=== PATIENT | female | born 1995 | race Caucasian/White ===

== ENCOUNTER 2024-07-11 20:29 | Emergency (ER) | payer MEDICAID, SELFPAY ==
[2024-07-11 20:42] VITALS: BP 136/87; PULSE 79; TEMP 37.2; O2SAT 100; BMI 21.6
--- NOTE | 2024-07-11 20:47 | US_ITS ---
The [address] [address] Patient Name: FLORENCE ANDERSON MRN: [id number] date: 1995 Sex: F Assigned Patient Location: ER Current Patient Location: Accession/Order Number: [id number] Exam Date: 07/11/2024 20:55 Report Date: 07/12/2024 00:46 At the request of: GILMA MARCUS Procedure: US pelvis transvaginal EXAM: US pelvis transvaginal HISTORY: iud placement COMPARISON: None. TECHNIQUE: Real time pelvic ultrasound examination was performed using Duplex Doppler by a transvaginal approach. FINDINGS: The uterus is normal in size and echogenicity measuring 9.4 cm in length. No focal myometrial lesions are seen. The endometrium is within normal limits with the stripe measuring up to 0.6 cm in thickness. An IUD is in place. The right ovary measures 4.4 x 2.7 x 3.7 cm, and the left ovary measures 2.9 x 2.1 x 2.7 cm. Blood flow is seen in both ovaries. There is a 1.7 x 0.9 x 1.4 cm right ovarian cyst. There is no significant free fluid. US/US pelvis transvaginal IMPRESSION: 1. An IUD appears to be appropriately positioned. Electronically authenticated by: Rubi SALCEDO Date: 07/12/2024 00:46
[2024-07-11 21:06] LABS: Bilirubin Urine NEGATIVE (NEGATIVE); Blood Urine NEGATIVE (NEGATIVE); Color Urine LT. YELLOW (YELLOW); Glucose Urine UA NEGATIVE (NEGATIVE); Ketones Urine NEGATIVE (NEGATIVE); Leukocyte Esterase Urine NEGATIVE (NEGATIVE); Nitrite Urine POSITIVE (NEGATIVE); Protein Urine NEGATIVE (NEG/TRACE); Specific Gravity Urine 1.025 (1.005-1.025); pH Urine 6.5 (5.0-9.0)
[2024-07-11 21:09] LABS: Clarity Urine CLOUDY (CLEAR); Urine Microscopic Indicated YES
[2024-07-11 21:19] LABS: Amorphous Sediment Urine MANY; Bacteria Urine LARGE #/HPF (NONE SEEN); Cast Seen? NONE SEEN #/LPF (NONE SEEN); Crystals Seen? None Seen #/HPF (None Seen); Mucus Urine NONE SEEN (NONE SEEN); RBC Urine 0-2 #/HPF (0-2); Squamous Epithelial Cell Urine MODERATE #/LPF (NONE/RARE); Urine Culture Indicated YES
--- NOTE | 2024-07-11 21:33 | ED.ABDPAIN1 ---
HPI - Abdominal Pain General Chief Complaint: Abdominal Pain Stated Complaint: ABDOMINAL PAIN, POSS IUD OUT OF PLACE Time Seen by Provider: 07/11/24 20:45 Source: patient Mode of arrival: walk-in Limitations: no limitations History of Present Illness HPI narrative: 9-year-old female presents here with chief complaint of pelvic pain. She states she was doing box jumps while working out and felt a pain to her lower pelvic region. She has an IUD in place and states it has been there for 6 years. She denies any other symptoms states she had some abdominal cramping occurred as well. Denies any vaginal bleeding. Related Data Home Medications ?Medication ?Instructions ?Recorded ?Confirmed No Known Home Medications 07/11/24 07/11/24 Previous Rx's ?Medication ?Instructions ?Recorded cephalexin 500 mg capsule 500 mg PO TID 7 days #21 caps 07/11/24 Allergies Allergy/AdvReac Type Severity Reaction Status Date / Time No Known Drug Allergies Allergy Verified 07/11/24 20:46 Review of Systems ROS Narrative All Systems are negative except as noted/marked.All systems reviewed and otherwise negative PFSH PFSH Social History Little interest or pleasure in doing things: not at all Feeling down, depressed, or hopeless: not at all Exam Narrative Exam Narrative: All Systems are negative except as noted/marked.All systems reviewed and otherwise negative Nurses note and vital signs reviewed and patient is not hypoxic. General: The patient appears well and in no apparent distress. Patient is resting comfortably on cart. Skin: Warm, dry, no pallor noted. There is no rash noted. Head: Normocephalic, atraumatic Eye: Normal conjunctiva, no drainage, EOMI. PERRL Ears, Nose, Mouth, and Throat: oral mucosa is moist. Nares patent. Mouth without vesicles. Ear canals patent. Tm's without Erythema Cardiovascular: Regular Rate and Rhythm Respiratory: Patient is in no distress, no accessory muscle use, lungs are clear to auscultation, no wheezing, rales or rhonchi Back: non-tender, no CVA tenderness bilaterally to percussion. GI: Normal bowel sounds, no tenderness to palpation, no masses appreciated. No rebound, guarding, or rigidity noted. IUD strings are noticed, no other abnormalities no vaginal discharge or bleeding Musculoskeletal: The patient has no evidence of calf tenderness, no pitting edema, symmetrical pulses noted bilaterally Neurological: A&O x4, normal speech Psychiatric: Cooperative Constitutional Vital Signs, click to edit/add: Last Vital Signs Temp 98.9 F 07/11/24 20:42 Pulse 79 07/11/24 20:42 Resp 20 07/11/24 20:42 BP 136/87 07/11/24 20:42 Pulse Ox 100 07/11/24 20:42 O2 Del Method Room Air 07/11/24 20:42 Course Vital Signs Vital signs: Vital Signs Temperature 98.9 F 07/11/24 20:42 Pulse Rate 79 07/11/24 20:42 Respiratory Rate 20 07/11/24 20:42 Blood Pressure 136/87 07/11/24 20:42 Pulse Oximetry 100 07/11/24 20:42 Oxygen Delivery Method Room Air 07/11/24 20:42 Temperature 98.9 F 07/11/24 20:42 Pulse Rate 79 07/11/24 20:42 Respiratory Rate 20 07/11/24 20:42 Blood Pressure 136/87 07/11/24 20:42 Pulse Oximetry 100 07/11/24 20:42 Oxygen Delivery Method Room Air 07/11/24 20:42 MDM - Abdominal Pain MDM Narrative Medical decision making narrative: Here chief complaint of pelvic pain after doing box jumps. Pelvic ultrasound was performed and IUD does appear to be in place. Strings were also checked through physical exam by myself strings were in place and noted. Patient's urinalysis was reviewed positive for nitrates will be placed on Keflex for a UTI. She is instructed to follow-up with Dr. Mohamud for her yearly Pap and further evaluation of UTI if necessary. Patient agrees with plan of care Medical Records Attestation: I reviewed the patient's medical records. Lab Data Attestation: I reviewed the patient's lab results. Labs: Lab Results 07/11/24 Range/Units 20:48 Urine Color Lt. yellow (YELLOW) Urine Clarity Cloudy A (CLEAR) Urine pH 6.5 (5.0-9.0) Ur Specific [place] 1.025 (1.005-1.025) Urine Protein Negative (NEG/TRACE) mg/dL Urine Glucose (UA) Negative (NEGATIVE) mg/dL Urine Ketones Negative (NEGATIVE) mg/dL Urine Occult Blood Negative (NEGATIVE) Urine Nitrite Positive A (NEGATIVE) Urine Bilirubin Negative (NEGATIVE) Urine Urobilinogen 1.0 (0.2-1.0) EU/dL Ur Leukocyte Esterase Negative (NEGATIVE) Urine RBC 0-2 (0-2) #/HPF Urine WBC 5-10 A (NONE SEEN) #/HPF Ur Squamous Epith Cells Moderate A (NONE/RARE) #/LPF Urine Crystals None seen (None Seen) #/HPF Amorphous Sediment Many Urine Bacteria Large A (NONE SEEN) #/HPF Urine Casts None seen (NONE SEEN) #/LPF Urine Mucus None seen (NONE SEEN) Ur Culture Indicated? Yes Imaging Data us pelvic: Radiologist's impression: ITS Impressions Transvaginal US 07/11/24 20:47 IMPRESSION: 1. An IUD appears to be appropriately positioned. Electronically authenticated by: Rubi SALCEDO Date: 07/12/2024 00:46 Discharge Plan Discharge Chief Complaint: Abdominal Pain Clinical Impression: UTI (urinary tract infection), IUD check up Patient Disposition: Home, Self-Care Time of Disposition Decision: 21:30 Condition: Good Prescriptions / Home Meds: New cephalexin 500 mg capsule 500 mg PO TID 7 Days Qty: 21 0RF No Action No Known Home Medications Print Language: Frisian Instructions: Intrauterine Device (DC), Urinary Tract Infection in Women (ED) Referrals: Harjeet Mohamud DO [Physician] - 1 week Physician,Non-Staff, MD [Primary Care Provider] - 1 week Discharge Date/Time: 07/11/24 21:55
[2024-07-11] MEDS: CEPHALEXIN 500 MG CAPSULE PO (21:49)
== END 2024-07-11 21:55 | disposition home or self-care (01) ==
PROVIDERS: Emergency Provider Internal Medicine
DX: N39.0 Urinary tract infection, site not specified (principal); Z30.431 Encounter for routine checking of intrauterine contraceptive device
CPT/HCPCS: 76830; 81001; 87086; 87150; 87186; 99284

== ENCOUNTER 2025-01-05 19:01 | Emergency (ER) | payer MEDICAID, SELFPAY ==
[2025-01-05 19:12] VITALS: BP 119/71; PULSE 85; TEMP 36.8; O2SAT 99; BMI 27.1
--- NOTE | 2025-01-05 19:55 | ED.URI1 ---
HPI - URI/Sore Throat General Chief Complaint: Upper Respiratory Infection Stated Complaint: Upper Respiratory Infection Time Seen by Provider: 01/05/25 19:55 Source: patient Limitations: no limitations History of Present Illness HPI Narrative: 29 year old female presents to the ED for cough, congestion. Onset was a few days ago. Her children and significant other have also been ill. Denies fever, chills, SOB, sore throat, N/V/D. States she is 7 weeks . Related Data Home Medications ?Medication ?Instructions ?Recorded ?Confirmed No Known Home Medications 07/11/24 07/11/24 Previous Rx's ?Medication ?Instructions ?Recorded cephalexin 500 mg capsule 500 mg PO TID 7 days #21 caps 07/11/24 Allergies Allergy/AdvReac Type Severity Reaction Status Date / Time No Known Drug Allergies Allergy Verified 01/05/25 19:11 Review of Systems ROS Constitutional Denies: fever or chills Ears, nose, mouth, and throat Reports: nasal discharge and nasal congestion; Denies: throat pain, neck pain, ear pain or ear discharge Respiratory Reports: cough; Denies: shortness of breath Gastrointestinal Denies: abdominal pain, vomiting or diarrhea Musculoskeletal Denies: back pain or neck pain Neurological Denies: headache PFSH PFSH Social History Little interest or pleasure in doing things: not at all Feeling down, depressed, or hopeless: not at all Exam Constitutional Vital Signs, click to edit/add: Last Vital Signs Temp 98.2 F 01/05/25 19:12 Pulse 85 01/05/25 19:12 Resp 16 01/05/25 19:12 BP 119/71 01/05/25 19:12 Pulse Ox 99 01/05/25 19:12 O2 Del Method Room Air 01/05/25 19:12 Common normals: no apparent distress and oriented x3 General appearance: cooperative HENMT Common normals: moist oral mucous membranes Eye Common normals: conjunctivae normal and no scleral icterus Neck & C-Spine Common normals: supple Chest Chest: symmetrical chest wall rise Respiratory Common normals: normal respiratory effort and clear to auscultation bilaterally Effort & inspection: able to speak in complete sentences and symmetric chest movement Cardio Common normals: regular rate and regular rhythm Neuro Common normals: oriented x3 and moves all extremities Sensorium/orientation: awake and alert Speech: speech normal Course Vital Signs Vital signs: Vital Signs Temperature 98.2 F 01/05/25 19:12 Pulse Rate 85 01/05/25 19:12 Respiratory Rate 16 01/05/25 19:12 Blood Pressure 119/71 01/05/25 19:12 Pulse Oximetry 99 01/05/25 19:12 Oxygen Delivery Method Room Air 01/05/25 19:12 Temperature 98.2 F 01/05/25 19:12 Pulse Rate 85 01/05/25 19:12 Respiratory Rate 16 01/05/25 19:12 Blood Pressure 119/71 01/05/25 19:12 Pulse Oximetry 99 01/05/25 19:12 Oxygen Delivery Method Room Air 01/05/25 19:12 MDM - URI/Sore Throat MDM Narrative Medical decision making narrative: Pt declined testing for influenza and Covid-19 today. Her two children and significant other were also evaluated and were tested. Pt appeared in no acute distress. Follow up with pcp for a recheck, further evaluation and treatment. Medical Records Attestation: I reviewed the patient's medical records. Discharge Plan Discharge Chief Complaint: Upper Respiratory Infection Clinical Impression: Upper respiratory infection, viral Patient Disposition: Home, Self-Care Time of Disposition Decision: 19:57 Condition: Good Mode of Transportation: Private Vehicle Prescriptions / Home Meds: No Action No Known Home Medications cephalexin 500 mg capsule 500 mg PO TID 7 Days Qty: 21 0RF Print Language: Moroccan Additional Instructions: Return to the ER for worsening symptoms. Referrals: Jef Ramirez DO [Primary Care Provider] - 1 week Discharge Date/Time: 01/05/25 20:05
== END 2025-01-05 20:05 | disposition home or self-care (01) ==
PROVIDERS: Emergency Provider Internal Medicine; PCP Family Medicine
DX: O99.511 Diseases of the respiratory system complicating pregnancy, first trimester (principal); J06.9 Acute upper respiratory infection, unspecified; Z3A.01 Less than 8 weeks gestation of pregnancy
CPT/HCPCS: 99282

== ENCOUNTER 2025-01-09 11:59 | Outpatient (OUT) | payer MEDICAID, SELFPAY ==
[2025-01-09 12:28] LABS: Basophils Percent Auto 0.3 % (0.2-2.0); Eosinophils Absolute Auto 0.1 10^3/uL (0.0-0.7); Eosinophils Percent Auto 1.4 % (0.9-7.0); Hematocrit 34.5 % (36.0-48.0); Hemoglobin 11.8 g/dL (12.0-16.0); Immature Granulocytes Abs Auto 0.04 10^3/uL (0.00-0.03); Immature Granulocytes Pct Auto 0.6 % (0.0-0.5); Lymphocytes Absolute Auto 1.8 10^3/uL (1.2-3.8); Lymphocytes Percent Auto 28.3 % (20.5-60.0); Mean Corpuscular HGB Conc 34.2 g/dL (29.9-35.2); Mean Corpuscular Hemoglobin 31.1 pg (26.7-34.0); Mean Platelet Volume 9.3 fL (9.5-13.5); Monocytes Absolute Auto 0.4 10^3/uL (0.3-0.8); Neutrophils Percent Auto 63.4 % (43.0-75.0); Platelet Count 224 10^3/uL (150-450); Red Blood Count 3.79 10^6/uL (4.20-5.40); Red Cell Distribution Width 13.2 % (11.0-15.0); White Blood Count 6.3 10^3/uL (4.0-11.0)
[2025-01-09 12:42] LABS: BOX Test Reference Lab UNITY; BOX Test Sent Out UNITY BOX
[2025-01-09 13:41] LABS: Estimated Average Glucose 97 mg/dL
[2025-01-09 13:46] LABS: Cannabinoid Screen Urine POSITIVE (NEGATIVE)
[2025-01-09 13:47] LABS: Amphetamine Screen Urine NEGATIVE (NEGATIVE); Barbiturates Screen Urine NEGATIVE (NEGATIVE); Benzodiazepines Screen Urine NEGATIVE (NEGATIVE); Buprenorphine Screen Urine NEGATIVE (NEGATIVE); Cocaine Screen Urine NEGATIVE (NEGATIVE); Methadone Screen Urine NEGATIVE (NEGATIVE); Methamphetamines Screen Urine NEGATIVE (NEGATIVE); Opiate Screen Urine NEGATIVE (NEGATIVE); Oxycodone Screen Urine NEGATIVE (NEGATIVE); Phencyclidine Screen Urine NEGATIVE (NEGATIVE); Tricyclic Antidepressant Urine NEGATIVE (NEGATIVE)
[2025-01-10 05:07] LABS: HIV Ab/p24 Ag Screen Non Reactive (Non Reactive)
[2025-01-10 06:08] LABS: HBsAg Screen Negative (Negative); HCV Ab Non Reactive (Non Reactive)
[2025-01-10 07:07] LABS: Rubella Antibodies, IgG 2.85 index (Immune >0.99)
[2025-01-10 13:12] LABS: Rapid Plasma Reagin, Quant Non Reactive titer (NonRea<1:1)
== END 2025-01-09 12:00 | disposition home or self-care (01) ==
LOC: LAB 12:00
PROVIDERS: PCP Family Medicine; Visit Provider Obstetrics & Gynecology
DX: Z34.01 Encounter for supervision of normal first pregnancy, first trimester (principal); Z36.0 Encounter for antenatal screening for chromosomal anomalies; N92.6 Irregular menstruation, unspecified
CPT/HCPCS: 36415; 80307; 83036; 85025; 86592; 86762; 86803; 86850; 86900; 86901; 87086; 87340; 87389

== ENCOUNTER 2025-02-18 12:28 | Outpatient (REF) | payer MEDICAID, SELFPAY ==
[2025-02-20 12:08] LABS: Age Gdln ACOG Testing Note (.); IGP, rfx Aptima HPV ASCU Note (.)
== END 2025-02-18 12:29 | disposition home or self-care (01) ==
LOC: LAB 12:28
PROVIDERS: PCP Family Medicine; Visit Provider Physician Assistant
DX: Z01.419 Encounter for gynecological examination (general) (routine) without abnormal findings (principal)
CPT/HCPCS: 88175

== ENCOUNTER 2025-04-27 13:06 | Outpatient (OUT) | payer MEDICAID, SELFPAY ==
--- OUTSIDE RECORDS SUMMARY | 2019-03-13 05:00 | XMS_ITS | Continuity of Care Document ---
Author Organization [facility] Address [address] [place] [address] Phone Care Team Providers Care Boat Tender Name Role Phone Ralph Santillan DDS Unavailable [...] Diagnoses Date Provider Providers Copied on Encounter [facility], [address] [place] [address], [id number], [place] tel:[phone] Dental Clinic Extractions (chief complaint) Encounter for screening for dental disorders 9 Tyrell Rosas. [address] [place], [place], [id number], [place]. tel:[phone] [facility], [address] [place] [address], [id number], [place] tel:[phone] Dental Clinic Encounter for screening for dental disorders 9 Lisa Oviedo. [address] [place], [place], [id number], [place]. tel:[phone] [facility], [address] [place] [address], [id number], [place] tel:[phone] [facility] No Information 9-201 8 Kristofer Steven. [address] [place], [place], [id number], [place]. tel:[phone] OFFICE/OUTPAT IENT VISIT, [facility], [address] [place], [place], [id number], [place] tel:[phone] [facility] Routine PN Visit (chief complaint) No Information 1- 4 Ken [facility] Mitali. [address] [place], [place], [id number], [place]. tel:[phone] OFFICE/OUTPAT IENT VISIT, [facility], [address] [place], [place], [id number], [place] tel:[phone] [facility] Routine PN Visit (chief complaint) No Information 7- 4 [facility] Mitali. [address] [place], [place], [id number], [place]. tel:[phone] OFFICE/OUTPAT IENT VISIT, [facility], [address] [place], [place], [id number], [place] tel:[phone] [facility] Routine PN Visit (chief complaint) No Information 3- 4 [facility] Mitali. [address] [place], [place], [id number], [place]. tel:[phone] OFFICE/OUTPAT IENT VISIT, [facility], [address] [place], [place], [id number], [place] tel:[phone] [facility] Interview (chief complaint) Influenza Vaccine 8- 4 [facility] Mitali. [address] [place], [place], [id number], [place]. tel:[phone] OFFICE/OUTPAT IENT VISIT, [facility], [address] [place], [place], [id number], [place] tel:[phone] [facility] Supervision of other normal 2-201 4 [facility] Mitali. [address] [place], [place], [id number], [place]. tel:[phone] [facility], [address] [place], [place], [id number], tel:[phone] [facility] No Information 2 Tara Cunningham. [address] [place], [place], [id number], . tel:[phone] Family History Family Member Type Diagnosis Age At Onset Father Problem (finding) schizophrenia Mother Problem (finding) Alive and well Brother Problem (finding) asthma Father Problem (finding) depression Immunizations Vaccine Date Status Comments Influenza virus vaccine, quadrivalent, split virus, preservative free administered Source: New Immuniza tion Record Flu (split) (3 yrs or older) administered Source: New Immunization Record Payers Payer name Insurance type Covered republican ID Authoriza tion(s) D Medicaid Wrap - [facility] [place] [id number] [employer] [place] [id number] Medicaid Wrap - [facility] [place] [id number] Social History Type Description Quantity Date Captured [...] Action Status Goal Influenza Vaccine. Due on Oc due Goal Depression screening. Due on due Goal PAP. Due on due Goal RLP. Due on due Goal Tdap. Due on due Goal Influenza Vaccine. Due [...]
--- OUTSIDE RECORDS SUMMARY | 2025-04-22 15:50 | XMS_ITS | Encounter Summary ---
Author Organization [facility] Address [address] [place] [address] Care Team Providers Care [facility] Name Role Phone Jef Ramirez DO Primary Care Provider [phone] Reason for Visit * Reason Comments Routine Visit Encounter Details Date Type Department Care Team (Late st Contact Info) Description 04/22/2025 3:50 PM EDT Routine [facility] [address] [id number] Josseline Andersen PA [address] [place], [place] [id number] Second trimester ([facility]); 24 weeks gestation of ([facility]); Diabetes mellitus screening; Restless leg Social History Tobacco Use Types Packs/Day Years Used Date Smoking Tobacco: Never Assessed Estimated Date of Delivery Comme nts Yes 08/10/2025 Based on Ultraso und Sex and Gender Information Value Date Recorded Sex Assigned at Not on file Legal Sex Female 6:46 PM EDT Gender Identity Not on file Sexual Orientation Not on file documented as of this encounter Last Filed Vital Signs Vital Sign Reading Time Taken Comments Blood Pressure 112/68 04/22/2025 4:17 PM EDT Pulse - - Temperature - - Respiratory Rate - - Oxygen Saturation - - Inhaled Oxygen Concentration - - Weight 80.1 kg (176 lb 9.6 oz) 04/22/2025 4:17 P M EDT Height - - Body Mass Index 29.39 02/18/2025 9:53 AM EDT documented in this encounter Progress Notes * JORGE Patrick - 04/22/2025 3:50 PM EDT Reason for Appointment: Patient ID: Tristen Mccracken is a 29 y.o. female who presents for Routine Visit Patient presents today for Return OB appointment. MEDICATIONS Current Outpatient Medications Medication Instructions magnesium oxide (MAG-OX) 400 mg, Oral, Daily MV-Min-Fe Fum-FA-DHA ( 1 PO) 1 tablet, Daily ALLERGIES No Known Allergies PROBLEMS Active Ambulatory Problems Diagnosis Date Noted Irregular bleeding 03/20/2023 Resolved Ambulatory Problems Diagnosis Date Noted No Resolved Ambulatory Problems Past Medical History: Diagnosis Date Irregular menses HISTORY PAST MEDICAL HISTORY SOCIAL HISTORY Past Medical History: Diagnosis Date Irregular menses Social History Tobacco Use Smoking status: Not on file Smokeless tobacco: Not on file Substance Use Topics Alcohol use: Not on file Drug use: Not on file FAMILY HISTORY No family history on file. SURGICAL HISTORY Past Surgical History: Procedure Laterality Date VAGINAL DELIVERY x2 2014&2017 REVIEW OF SYSTEMS Review of Systems: Review of Systems Constitutional: Negative. HENT: Negative. Eyes: Negative. Respiratory: Negative. Cardiovascular: Negative. Gastrointestinal: Negative. Genitourinary: Negative. Musculoskeletal: Negative. Skin: Negative. Neurological: Negative. All other systems reviewed and are negative. Hematological: Negative. Endocrine: Negative. Allergic/Immunologic: Negative. OBJECTIVE Objective: Physical Exam Constitutional: Appearance: Normal appearance. She is normal weight. HENT: Head: Normocephalic. Cardiovascular: Rate and Rhythm: Normal rate. Pulses: Normal pulses. Pulmonary: Effort: Pulmonary effort is normal. Breath sounds: Normal breath sounds. Abdominal: Palpations: Abdomen is soft. Musculoskeletal: General: Normal range of motion. Neurological: General: No focal deficit present. Mental Status: She is alert and oriented to person, place, and time. Psychiatric: Mood and Affect: Mood normal. Behavior: Behavior normal. Thought Content: Thought content normal. Judgment: Judgment normal. Vitals and nursing note reviewed. Vitals: Estimated body mass index is 29.39 kg/m?? as calculated from the following: Height as of 02/18/25: 5' 5 . Weight as of this encounter: 176 lb 9.6 oz. BP: 112/68 Patient's last menstrual period was 10/17/2024. ASSESSMENT & PLAN ICD-10-CM 1. Second trimester ([facility]) Z34.92 POCT urinalysis dipstick manually resulted 2. 24 weeks gestation of ([facility]) Z3A.24 POCT urinalysis dipstick manually resulted 3. Diabetes mellitus screening Z13.1 CBC Glucose tolerance, 1 hour CBC Glucose tolerance, 1 hour 4. Restless leg G25.81 magnesium oxide (Mag-Ox) 400 MG tablet Return OB: Patient presents today for a routine obstetrics appointment. Patient is currently 24w2d . Patient states she is doing well but has complaints of being tired due to current . Patient has verbalizes frequent movement. Orders Placed This Encounter Procedures CBC Glucose tolerance, 1 hour POCT urinalysis dipstick manually resulted Follow Up: Patient is to return to office in 4 week for routine OB appointment. Documented by JORGE Patrick on behalf of: JORGE Patrick documented in this encounter Plan of Treatment Upcoming Encounters Date Type Department Care Team (Late st Contact Info) Description 05/13/2025 3:10 PM EDT Routine [facility] [address] [place] [phone] Harjeet Mohamud DO [address] [place] [address] Scheduled Orders Name Type Priority Associated Diagnoses Orde r Schedule CBC Lab Routine Diabetes mellitus screening Expected: 04/22/2025 (Approximate), Expires: 04/22/2026 Glucose tolerance, 1 hour Lab Routine Diabetes mellitus screening Expected: 04/22/2025 (Approximate), Expires: 04/22/2026 documented as of this encounter Procedures Procedure Name Priority Date/Time Associated Diagnosis Comments POCT URINALYSIS DIPSTICK Routine 04/22/2025 4:25 PM EDT Second trimester ([facility]) 24 weeks gestation of ([facility]) documented in this encounter Results * (ABNORMAL) POCT urinalysis dipstick manually resulted (04/22/2025 4:25 PM EDT) Color, UA Yellow Clarity, UA Clear Glucose, UA Negative Negative - 2000(110) ++++ mg/dL Bilirubin, UA Negative Negative - 4(70) +++ mg/dL Ketones, UA Negative Negative - 160(16) ++++ mg/dL Spec Grav, UA 1.025 1 - 1.03 Blood, UA Negative Negative - 50 Hesham/mcL pH, UA 65.0 5 - 9 Protein, UA Negative Negative - 2000(20) ++++ mg/dL Urobilinogen, UA 1.0 0.2 - 12 mg/dL Leukocytes, UA Negative Negative - 500+++ Dary/mcL Nitrite, UA Negative Negative - Positive Urine 04/22/2025 4:25 PM EDT Josseline PATEL POINT OF CARE TEST ENTER/EDIT OR DERABLES Final Result documented in this encounter Visit Diagnoses Diagnosis Second trimester ([facility]) state, incidental 24 weeks gestation of ([facility]) Diabetes mellitus screening Screening for diabetes mellitus Restless leg Restless legs syndrome (RLS) documented in this encounter Care Teams [facility] Manager Relationship Specialty Start Date End Date Jef Ramirez DO [address] [place] [phone] PCP - General 09/11/24 documented as of this encounter
--- OUTSIDE RECORDS SUMMARY | 2025-04-27 13:10 | XMS_ITS | Clinical Summary ---
Author Organization [facility] Healthcare Address [address] [place] [address] Care Team Providers Care Grain Thresher Name Role Phone Jef Ramirez Primary Care Provider [phone] Allergies No known active allergies Medications MV-Min-Fe Fum-FA-DHA ( 1 PO) Take 1 tablet by mouth Daily Active magnesium oxide (Mag-Ox) 400 MG tabletIndication s:Restless leg Take 1 tablet (400 mg) by mouth Daily 30 tablet 11 04/22/2025 Active Active Problems Problem Noted Date Diagnosed Date Irregular bleeding 03/20/2023 Estimated Date of Delivery Comme nts Yes 08/10/2025 Based on Ultraso und Encounters Date Type Department Care Team Description 04/22/2025 3:50 PM EDT Routine [place] [address] Josseline Andersen PA Second trimester ([facility]); 24 weeks gestation of ([facility]); Diabetes mellitus screening; Restless leg 04/22/2025 Bamboo flowsheet [facility] [place] [address] Josseline Andersen PA 03/23/2025 9:40 [place] [address] Harjeet Mohamud DO 20 weeks gestation of ([facility]); Second trimester ([facility]) 03/23/2025 8:30 AM EDT Ancillary Procedure AP[place] [address] Screening, , for anatomic survey ([facility]) 02/26/2025 Orders Only [facility] CUEVAN Fadia [facility] [place] [phone] Hanny Mercado, PROCESS DEVELOPER 02/20/2025 Telephone [facility] [place] [address] Isabel Adair, PROCESS DEVELOPER 02/18/2025 9:30 AM EDT Routine [facility] S[facility]ail CHANDLERGYN [place] [address] Josseline Andersen PA Well woman exam with routine gynecological exam; Exposure to STD; Need for maternal serum alpha-protein (MSAFP) screening ([facility]); Second trimester ([facility]); 15 weeks gestation of ([facility]); Screening, , for anatomic survey ([facility]) 02/18/2025 Clinisync Result Encounter NOMS External Department Unsolicited Josseline Andersen PA 02/18/2025 External Result Encounter NOMS External Department Unsolicited Josseline Andersen PA 02/18/2025 Bamboo flowsheet [facility] [place] [address] Josseline Andersen PA 01/28/2025 11:20 AM EDT Routine [facility] S[facility]ail CHANDLERGYN Fadia [facility] [place] [address] Harjeet Mohamud DO First trimester ([facility]); 12 weeks gestation of ([facility]) 01/28/2025 Bamboo flowsheet [facility] OBGYN [address] [place] [phone] Harjeet Mohamud DO from Last 3 Months Social History Tobacco Use Types Packs/Day Years Used Date Smoking Tobacco: Never Assessed Estimated Date of Delivery Comme nts Yes 08/10/2025 Based on Ultraso und Sex and Gender Information Value Date Recorded Sex Assigned at Not on file Legal Sex Female 6:46 PM EDT Gender Identity Not on file Sexual Orientation Not on file Last Filed Vital Signs Vital Sign Reading Time Taken Comments Blood Pressure 112/68 04/22/2025 4:17 PM EDT Pulse - - Temperature - - Respiratory Rate - - Oxygen Saturation - - Inhaled Oxygen Concentration - - Weight 80.1 kg (176 lb 9.6 oz) 04/22/2025 4:17 P M EDT Height 165.1 cm (5' 5 ) 02/18/2025 9:53 AM EDT Body Mass Index 29.39 02/18/2025 9:53 AM EDT Plan of Treatment Upcoming Encounters Date Type Department Care Team (Late st Contact Info) Description 05/13/2025 3:10 PM EDT Routine [facility] OBGYN [address] [place] [phone] Harjeet Mohamud DO [address] [place] [address] Procedures Procedure Name Priority Date/Time Associated Diagnosis Comments POCT URINALYSIS DIPSTICK Routine 04/22/2025 4:25 PM EDT Second trimester ([facility]) 24 weeks gestation of ([facility]) POCT URINALYSIS DIPSTICK Routine 03/23/2025 9:50 AM EDT 20 weeks gestation of ([facility]) Second trimester ([facility]) OB 14+ WEEKS ANATOMY SCAN Routine 03/23/2025 9:38 AM EDT Screening, , for anatomic survey ([facility]) RECURRENT VAGINITIS (HTRX) Routine 02/18/2025 12:01 PM EDT POCT URINALYSIS DIPSTICK Routine 02/18/2025 9:53 AM EDT Second trimester ([facility]) IGP,APTIMA HPV,AGE GDLN Routine 02/18/2025 9:36 AM EDT PAP SMEAR Routine 02/18/2025 12:00 AM EDT CULTURE, URINE, ROUTINE Routine 01/28/2025 2:44 PM EDT Missed menses POCT URINALYSIS DIPSTICK Routine 01/28/2025 11:51 AM EDT First trimester ([facility]) from Last 3 Months Results * (ABNORMAL) POCT urinalysis dipstick manually resulted (04/22/2025 4:25 PM EDT) Only the most recent of4 resultswithin the time period is included. Color, UA Yellow Clarity, UA Clear Glucose, [...] - Positive Urine 04/22/2025 4:25 PM EDT us Josseline PATEL POINT OF CARE TEST ENTER/EDIT OR DERABLES Final Result * US OB 14+ weeks anatomy scan (03/23/2025 9:38 AM EDT) Anatomical Region Laterality Modality Body Ultrasound 03/24/2025 7:27 AM EDT Narrative 03/24/2025 7:27 AM EDT EXAM: US OB 14+ WEEKS ANATOMY SCAN HISTORY: anatomy. COMPARISON: Ob ultrasound 01/09/2025. TECHNIQUE: Two-dimensional transabdominal grayscale ultrasound imaging of the pelvis was performed. FINDINGS: Gestation: Single Presentation: Breech Cardiac Activity: 153 beats per minute Placental Location: Posterior/fundal with no sonographic abnormalities identified. Distance from Placental Tip to Cervix: 10.7 cm Cervical Length: 4.5 cm Amniotic Fluid: Appears adequate MEASUREMENTS: BPD: 5.6 cm EGA: 19 weeks 5 days HC: 17.8 cm EGA: 20 weeks 2 days AC: 16.1 cm EGA: 21 weeks 1 days FL: 3.5 cm EGA: 21 weeks 0 days HC/AC Ratio: 1.11 The gestational age by today's ultrasound is 20 weeks 4 days (+/- 10 days gestation). Estimated Weight: 388 grams, +/- 58 grams ( 0 lb 14 oz). Weight Percentile for gestational age: 91 % ANATOMY C-Spine: Unremarkable T-Spine: Unremarkable L-Spine: Unremarkable Sacrum: Unremarkable Four Chamber Heart: Unremarkable LVOT: Unremarkable RVOT: Unremarkable Stomach: Unremarkable Kidneys: Unremarkable Bladder: Unremarkable Diaphragm: Unremarkable Cord insertion: Unremarkable Cord vessels: Three Lateral Ventricles: Unremarkable Cerebellum: Unremarkable Cisterna Magna: Unremarkable Posterior Fossa: Unremarkable Right Femur: Unremarkable Left Femur: Unremarkable Right Tib/Fib: Unremarkable Left Tib/Fib: Unremarkable Right Rad/Ulnar: Unremarkable Left Rad/Ulnar: Unremarkable Right Humerus: Unremarkable Left Humerus: Unremarkable Nose/Lips: Unremarkable Profile: Unremarkable Orbits: Unremarkable IMPRESSION: 1. Single, live intrauterine gestation 20 weeks, 0 days by LMP. Today's ultrasound measurements correlate with a gestational age of 20 weeks 4 days. Estimated weight is 388 grams, +/- 58 grams ( 0 lb 14 oz) which correlates to 91 %. DAY by today's ultrasound is 08/06/2025. 2. growth is measuring large for gestational age. 3. Unremarkable ultrasound of the anatomy. Interpreted by: Electronically signed by OWEN FLOWERS II, MD, PHD at 24-Mar-2025 07:25:03 AM [facility] Procedure Note Owen Flowers MD - 03/24/2025 EXAM: US OB 14+ WEEKS ANATOMY SCAN HISTORY: anatomy. COMPARISON: Ob ultrasound 01/09/2025. TECHNIQUE: Two-dimensional transabdominal grayscale ultrasound imaging ofthe pelvis was performed. FINDINGS: Gestation: Single Presentation: Breech Cardiac Activity: 153 beats per minute Placental Location: Posterior/fundal with no sonographic abnormalitiesidentified. Distance from Placental Tip to Cervix: 10.7 cm Cervical Length: 4.5 cm Amniotic Fluid: Appears adequate MEASUREMENTS: BPD: 5.6 cm EGA: 19 weeks 5 days HC: 17.8 cm EGA: 20 weeks 2 days AC: 16.1 cm EGA: 21 weeks 1 days FL: 3.5 cm EGA: 21 weeks 0 days HC/AC Ratio: 1.11 The gestational age by today's ultrasound is 20 weeks 4 days (+/- 10 daysgestation). Estimated Weight: 388 grams, +/- 58 grams ( 0 lb 14 oz). Weight Percentile for gestational age: 91 % ANATOMY C-Spine: Unremarkable T-Spine: Unremarkable L-Spine: Unremarkable Sacrum: Unremarkable Four Chamber Heart: Unremarkable LVOT: Unremarkable RVOT: Unremarkable Stomach: Unremarkable Kidneys: Unremarkable Bladder: Unremarkable Diaphragm: Unremarkable Cord insertion: Unremarkable Cord vessels: Three Lateral Ventricles: Unremarkable Cerebellum: Unremarkable Cisterna Magna: Unremarkable Posterior Fossa: Unremarkable Right Femur: Unremarkable Left Femur: Unremarkable Right Tib/Fib: Unremarkable Left Tib/Fib: Unremarkable Right Rad/Ulnar: Unremarkable Left Rad/Ulnar: Unremarkable Right Humerus: Unremarkable Left Humerus: Unremarkable Nose/Lips: Unremarkable Profile: Unremarkable Orbits: Unremarkable IMPRESSION: 1. Single, live intrauterine gestation 20 weeks, 0 days by LMP. Today'sultrasound measurements correlate with a gestational age of 20 weeks 4days. Estimated weight is 388 grams, +/- 58 grams ( 0 lb 14 oz)which correlates to 91 %. DAY by today's ultrasound is 08/06/2025. 2. growth is measuring large for gestational age. 3. Unremarkable ultrasound of the anatomy. Interpreted by: Electronically signed by OWEN FLOWERS II, MD, PHD [id number] 07:25:03 AM [facility] us Josseline PATEL IMG OB US PROCEDURES Final Resul t * (ABNORMAL) RECURRENT VAGINITIS (HTRX) (02/18/2025 12:01 PM EDT) ATOPOBIUM VAGINAE 16.666(A) 19.961 - 24.689 ppm 02/20/2025 6:41 AM EDT [facility] ATOPOBIUM VAGINAE Detected(A) 19.961 - 24.689 ppm 02/20/2025 6:41 AM EDT [facility] BVAB 2,3 (BACTERIAL VAGINOSIS ASSOCIATED BACTERIA 2, 3); MOBILUNCUS SPP 0 19.961 - 24.689 ppm 02/20/2025 6:41 AM EDT [facility] BVAB 2,3 (BACTERIAL VAGINOSIS ASSOCIATED BACTERIA 2, 3); MOBILUNCUS SPP Not Detected 19.961 - 24.689 ppm 02/20/2025 6:41 AM EDT [facility] SPENCER ALBICANS, PARAPSILOSIS, TROPICALIS 0 19.961 - 30.770 ppm 02/20/2025 6:41 AM EDT [facility] SPENCER ALBICANS, PARAPSILOSIS, TROPICALIS Not Detected 19.961 - 30.770 ppm 02/20/2025 6:41 AM EDT [facility] SPENCER GLABRATA 0 23.000 - 32.138 ppm 02/20/2025 6:41 AM EDT [facility] SPENCER GLABRATA Not Detected 23.000 - 32.138 ppm 02/20/2025 6:41 AM EDT [facility] SPENCER KRUSEI 0 23.000 - 32.271 ppm 02/20/2025 6:41 AM EDT [facility] SPENCER KRUSEI Not Detected 23.000 - 32.271 ppm 02/20/2025 6:41 AM EDT [facility] CHLAMYDIA TRACHOMATIS 0 23.000 - 31.467 ppm 02/20/2025 6:41 AM EDT [facility] CHLAMYDIA TRACHOMATIS Not Detected 23.000 - 31.467 ppm 02/20/2025 6:41 AM EDT [facility] GARDNERELLA VAGINALIS 0 19.961 - 24.689 ppm 02/20/2025 6:41 AM EDT [facility] GARDNERELLA VAGINALIS Not Detected 19.961 - 24.689 ppm 02/20/2025 6:41 AM EDT [facility] MEGASPHAERA (TYPES 1, 2) 19.997(A) 19.961 - 24.689 ppm 02/20/2025 6:41 AM EDT [facility] MEGASPHAERA (TYPES 1, 2) Detected(A) 19.961 - 24.689 ppm 02/20/2025 6:41 AM EDT [facility] NEISSERIA GONORRHOEAE 0 23.000 - 32.117 ppm 02/20/2025 6:41 AM EDT [facility] NEISSERIA GONORRHOEAE Not Detected 23.000 - 32.117 ppm 02/20/2025 6:41 AM EDT [facility] TRICHOMONAS VAGINALIS 0 23.000 - 32.119 ppm 02/20/2025 6:41 AM EDT [facility] TRICHOMONAS VAGINALIS Not Detected 23.000 - 32.119 ppm 02/20/2025 6:41 AM EDT [facility] MYCOPLASMA GENITALIUM 0 19.961 - 24.689 ppm 02/20/2025 6:41 AM EDT [facility] MYCOPLASMA GENITALIUM Not Detected 19.961 - 24.689 ppm 02/20/2025 6:41 AM EDT [facility] TET B, TET M 16.731(A) 23.000 - 27.778 ppm 02/20/2025 6:41 AM EDT [facility] TET B, TET M Detected(A) 23.000 - 27.778 ppm 02/20/2025 6:41 AM EDT [facility] Tissue 02/18/2025 12:0 1 PM EDT 02/20/2025 1:41 AM EDT us Josseline PATEL LAB BLOOD ORDERABLES Final Resul t [facility] [address] [place] [address] * IGP,APTIMA HPV,AGE GDLN (02/18/2025 9:36 AM EDT) AGE GDLN ACOG TESTING Note . [facility] Comment: TESTS RESULT FLAG UNITS REF RANGE LAB Clinician Provided Cytology Information Source.............Cervix Other.............. No. of containers..01 ThinPrep Vial Age Algo ACOG Antonia... -01 10 FLAG LEGEND: L-Low Normal,H-High Normal,LL-Alert Low,HH-Alert High <-Panic Low,>-Panic High,A-Abnormal,AA-Critical Abnormal Performed at: 01 =G [address] [id number] Belgica Moctezuma MD, IGP, RFX APTIMA HPV ASCU Note . [facility] Comment: TESTS RESULT FLAG UNITS REF RANGE LAB DIAGNOSIS: 02 NEGATIVE FOR INTRAEPITHELIAL LESION OR MALIGNANCY. Specimen adequacy: 02 Satisfactory for evaluation. No endocervical component is identified. An endocervical component is not commonly seen in the patient. Performed by: 02 Leslie Rich, Head Mechanic ([facility]) . 02 Note: Note 02 The Pap smear is a screening test designed to aid in the detection of premalignant and malignant conditions of the uterine cervix. It is not a diagnostic procedure and should not be used as the sole means of detecting cervical cancer. Both false-positive and false-negative reports do occur. Test Methodology: Note 02 This liquid based ThinPrep(R) pap test was screened with the use of an image guided system. . 02 The HPV DNA reflex criteria were not met with this specimen result therefore, no HPV testing was performed. FLAG LEGEND: L-Low Normal,H-High Normal,LL-Alert Low,HH-Alert High <-Panic Low,>-Panic High,A-Abnormal,AA-Critical Abnormal Performed at: [address] [address] Belgica Moctezuma MD, Performed at: =G - [facility] [address] [id number] Large Animal Husbandry Technician: Belgica Moctezuma MD, Phone: [phone] Performed at: [facility] [address] [id number] Large Animal Husbandry Technician: Belgica Moctezuma MD, Phone: [phone] 02/18/2025 9:36 AM EDT 02/18/2025 12:30 PM EDT Narrative [facility] - 02/20/2025 12:08 PM EDT SPATULA-ALONE CERVIX Josseline PATEL LAB BLOOD ORDERABLES Final Resul t [facility] * Pap Smear (02/18/2025 12:00 AM EDT) Swab Cervical swab / Unknown [place] [facility] LAB CYTOLOGY ORDERABLES Final Result EXTERNAL LAB * Urine culture (01/28/2025 2:44 PM EDT) Urine Urine specimen obtained by clean catch procedure / Unknown Harjeet Mohamud DO LAB MICROBIOLOGY - GENERAL ORDER ANDREINA Final Result EXTERNAL LAB from Last 3 Months Insurance [employer] [place] Care Teams Grain Thresher Relationship Specialty Start Date End Date Jef Ramirez DO [address] [place] [address] PCP - General 09/11/24
--- OUTSIDE RECORDS SUMMARY | 2025-04-27 13:10 | XMS_ITS | Encounter Summary ---
Author Organization [facility] Address [address] [place] [address] Care Team Providers Care Cigarette Package Examiner Name Role Phone Jef Ramirez DO Primary Care Provider [phone] Encounter Details Date Type Department Care Team (Late Contact Info) Description 01/19/2025 Abstract APARNA HUNTER [address] [place] [address] [place] [address] Harjeet Mohamud [address] [place], [facility]11 Social History Tobacco Use Types Packs/Day Years Used Date Smoking Tobacco: Never Assessed Estimated Date of Delivery Comme nts Yes 08/10/2025 Based on Ultraso und Sex and Gender Information Value Date Recorded Sex Assigned at Not on file Legal Sex Female 6:46 PM EDT Gender Identity Not on file Sexual Orientation Not on file documented as of this encounter Plan of Treatment Upcoming Encounters Date Type Department Care Team (Late Contact Info) Description 05/13/2025 3:10 PM EDT Routine APARNA HUNTER [address] [place] [address] [place] [address] Harjeet Mohamud [address] [place] [address] [place], [facility]11 documented as of this encounter Visit Diagnoses Not on filedocumented in this encounter Care Teams Cigarette Package Examiner Relationship Specialty Start Date End Date Jef Ramirez DO [address] [place] [address] PCP - General 09/11/24 documented as of this encounter
--- OUTSIDE RECORDS SUMMARY | 2025-04-27 13:10 | XMS_ITS | Encounter Summary ---
Author Organization [facility] Address [address] [place] [address] Care Team Providers Care Icing Machine Operator Name Role Phone Jef Ramirez DO Primary Care Provider [phone] Encounter Details Date Type Department Care Team (Late Contact Info) Description 09/11/2024 Abstract APARNA HUNTER [address] [facility] [address] [address] Harjeet Mohamud [address] [place], [facility]11 Social History Tobacco Use Types Packs/Day Years Used Date Smoking Tobacco: Never Assessed Comments Unknown Sex and Gender Information Value Date Recorded Sex Assigned at Not on file Legal Sex Female 6:46 PM EDT Gender Identity Not on file Sexual Orientation Not on file documented as of this encounter Plan of Treatment Upcoming Encounters Date Type Department Care Team (Late st Contact Info) Description 05/13/2025 3:10 PM EDT Routine APARNA HUNTER [address] [place] [address] [place] [address] Harjeet Mohamud [address] [place], [facility]11 documented as of this encounter Visit Diagnoses Not on filedocumented in this encounter Care Teams Icing Machine Operator Relationship Specialty Start Date End Date Jef Ramirez DO [address] [place] [address] PCP - General 09/11/24 documented as of this encounter
--- OUTSIDE RECORDS SUMMARY | 2025-04-27 13:10 | XMS_ITS | Encounter Summary ---
Author Organization [facility] Address [address] [place] [address] Care Team Providers Care Day Care Worker Name Role Phone Jef Ramierz DO Primary Care Provider [phone] Encounter Details Date Type Department Care Team (Late st Contact Info) Description 02/26/2025 Orders Only APARNA HUNTER [address] [place] [address] Hanny Mercado LPN [address] [place] [facility]11 Social History Tobacco Use Types Packs/Day Years [...] 05/13/2025 3:10 PM EDT Routine APARNA HUNTER [address] [place] [address] Harjeet Mohamud DO [address] [place], [place] [id number] documented as of this encounter Procedures Procedure Name Priority Date/Time Associated Diagnosis Comments PAP SMEAR Routine 02/18/2025 12:00 AM EDT documented in this encounter Results * Pap Smear (02/18/2025 12:00 AM EDT) Swab Cervical swab / Unknown us [place] [facility] LAB CYTOLOGY ORDERABLES Final Result EXTERNAL LAB documented in this encounter Visit Diagnoses Not on filedocumented in this encounter Care Teams Day Care Worker Relationship Specialty Start Date End Date Jef Ramirez DO [address] [place] [address] PCP - General 09/11/24 documented as of this encounter
--- OUTSIDE RECORDS SUMMARY | 2025-04-27 13:10 | XMS_ITS | Encounter Summary ---
Author Organization [facility] Address [address] [place] [address] Care Team Providers Care Banking Officer Name Role Phone Jef Ramirez DO Primary Care Provider [phone] Encounter Details Date Type Department Care Team (Late Contact Info) Description 04/22/2025 Bamboo flowsheet APARNA HUNTER [address] [place] [address] [place] [address] Josseline Andersen PA [address] [place], [facility]11 Social History Tobacco Use Types Packs/Day [...] 3:10 PM EDT Routine APARNA HUNTER [address] [facility] [address] [address] Harjeet Mohamud DO [address] [place], [facility]11 documented as of this encounter Visit Diagnoses Not on filedocumented in this encounter Care Teams Banking Officer Relationship Specialty Start Date End Date Jef Ramirez DO [address] [place] [address] PCP - General 09/11/24 documented as of this encounter
[2025-04-27 14:33] LABS: Hematocrit 31.9 % (36.0-48.0); Hemoglobin 10.9 g/dL (12.0-16.0); Immature Granulocytes Abs Auto 0.03 10^3/uL (0.00-0.03); Immature Granulocytes Pct Auto 0.5 % (0.0-0.5); Lymphocytes Absolute Auto 1.5 10^3/uL (1.2-3.8); Mean Corpuscular HGB Conc 34.2 g/dL (29.9-35.2); Mean Corpuscular Hemoglobin 32.2 pg (26.7-34.0); Mean Corpuscular Volume 94.1 fL (81.0-99.0); Platelet Count 200 10^3/uL (150-450); Red Blood Count 3.39 10^6/uL (4.20-5.40); White Blood Count 6.1 10^3/uL (4.0-11.0)
[2025-04-27 14:46] LABS: Glucose 1 Hour 113 mg/dL (<130)
== END 2025-04-27 13:07 | disposition home or self-care (01) ==
LOC: LAB 13:08
PROVIDERS: PCP Family Medicine; Visit Provider Physician Assistant
DX: Z13.1 Encounter for screening for diabetes mellitus (principal)
CPT/HCPCS: 36415; 82950; 85025

== ENCOUNTER 2025-07-06 11:43 | Observation (INO) | payer MEDICAID, SELFPAY ==
--- OUTSIDE RECORDS SUMMARY | 2019-03-13 04:00 | XMS_ITS | Continuity of Care Document ---
Author Organization [facility] Address [address] [place] [address] Phone Care Team Providers Care Metal Moulder'S Assistant Name Role Phone Ralph Santillan DDS Unavailable Unavail able Allergies, Adverse Reactions, Alerts Substance Reaction Status Criticality No Known Allergies Active No Inform ation Medications Medication Instructions Dosage Effective Dates (start - stop) Status Comments Percocet 5 mg-325 mg tablet take 1 tablet by oral route every 6 hours as needed for k08.8 pain 1.00 tablet - Active amoxicillin 500 mg tablet take 1 tablet by oral route every 8 hours 500 MG - Active dexamethasone 0.75 mg tablet take as directed by on paper he gave you. Pharm. may substitute medrol dose bill if no dexa available today - Active Procedures Procedure Date Extract; Erupted Th/exposted Rt 019 Extract; Erupted Th/exposted Rt 019 Panoramic Film Intraoral-periapical 1st Film 9 Limited Oral Eval Oral Hygiene Instruction Dental Emergency IMMUNIZATION ADMIN FLU VAC NO PRSV 4 PRACHI 3 YRS+ UDS Exempt OFFICE/OUTPATIENT VISIT, EST OFFICE/OUTPATIENT VISIT, EST URINALYSIS NONAUTO W/O SCOPE CARE COORDINATION COUNSELING AND EDUCATION OFFICE/OUTPATIENT VISIT, EST CARE COORDINATION COUNSELING AND EDUCATION OFFICE/OUTPATIENT VISIT, EST OFFICE/OUTPATIENT VISIT, EST URINALYSIS NONAUTO W/O SCOPE RISK ASSISSMENT CARE COORDINATION COUNSELING AND EDUCATION OFFICE/OUTPATIENT VISIT, EST OFFICE/OUTPATIENT VISIT, EST OFFICE/OUTPATIENT VISIT, EST RISK ASSISSMENT CARE COORDINATION COUNSELING AND EDUCATION OFFICE/OUTPATIENT VISIT, EST NEW MEDICAID URINE TEST URINALYSIS NONAUTO W/O SCOPE ODH SPECIMEN HANDLING (GC/CHLAMYDIA) Oct Condoms Advance Directives Directive Yes / No Effective Date File Name No Information Encounters Encounter Description Practice Location Reason(s) For Visit Diagnoses Date Provider Providers Copied on Encounter [facility], [address] [place] [address], [id number], [place] tel:[phone] Dental Clinic Extractions (chief complaint) Encounter for screening for dental disorders 9 Tyrell Rosas. [address] [place], [place], [id number], [place]. tel:[phone] [facility], [address] [place] [address], [id number], [place] tel:[phone] Dental Clinic Encounter for screening for dental disorders 9 Lisa Oviedo. [address] [place], [place], [id number], [place]. tel:[phone] [facility], [address] [place] [address], [id number], [place] tel:[phone] [facility] No Information 9-201 8 Kristofer Steven. [address] [place], [place], [id number], [place]. tel:[phone] OFFICE/OUTPAT IENT VISIT, [facility], [address] [place], [place], [id number], [place] tel:[phone] [facility] Routine PN Visit (chief complaint) No Information 1- 4 Ken [facility] Mitali. [address] [place], [place], [id number], [place]. tel:[phone] OFFICE/OUTPAT IENT VISIT, [facility], [address] [place], [place], [id number], [place] tel:[phone] [facility] Routine PN Visit (chief complaint) No Information 7- 4 [facility] Mitali. [address] [place], [place], [id number], [place]. tel:[phone] OFFICE/OUTPAT IENT VISIT, [facility], [address] [place], [place], [id number], [place] tel:[phone] [facility] Routine PN Visit (chief complaint) No Information 3- 4 [facility] Mitali. [address] [place], [place], [id number], [place]. tel:[phone] OFFICE/OUTPAT IENT VISIT, [facility], [address] [place], [place], [id number], [place] tel:[phone] [facility] Interview (chief complaint) Influenza Vaccine 8- 4 [facility] Mitali. [address] [place], [place], [id number], [place]. tel:[phone] OFFICE/OUTPAT IENT VISIT, [facility], [address] [place], [place], [id number], [place] tel:[phone] [facility] Supervision of other normal 2-201 4 [facility] Mitali. [address] [place], [place], [id number], [place]. tel:[phone] [facility], [address] [place], [place], [id number], tel:[phone] [facility] No Information 2 Tara Cunningham. [address] [place], [place], [id number], . tel:[phone] Family History Family Member Type Diagnosis Age At Onset Father Problem (finding) schizophrenia Mother Problem (finding) Alive and well Brother Problem (finding) asthma Father Problem (finding) depression Immunizations Vaccine Date Status Comments Influenza virus vaccine, quadrivalent, split virus, preservative free administered Source: New Immuniza tion Record Flu (split) (3 yrs or older) administered Source: New Immunization Record Payers Payer name Insurance type Covered democrat ID Authoriza tion(s) D Medicaid Wrap - [facility] [place] [id number] [employer] [place] [id number] Medicaid Wrap - [facility] [place] [id number] Social History Type Description Quantity Date Captured Comments Alcohol Use Details No Caffeine Use Details No Tobacco Use Status Current non-smoker 19 Smoking Status Never smoker Sex Female Yes - Patient is cur rently Sexual Orientation Straight or heterosexual Gender Identity Female Vital Signs Date / Time: Height Weight BMI Pulse Rate Blood Pressure Temperature Respiratory Rate Body Surface Area Head Circumference Head Circ. Percentile Wt./Thai. Percentile BMI percentile Pulse Ox Inhaled Ox 9:11 AM 68 /min 104/68 mm[Hg] Chief Complaint And Reason For Visit From encounter dated '03/13/2019 09:00'. Extractions (chief complaint) Reason For Referral Reason For Referral No Information Plan Of Treatment Date Type Action Status Goal Tdap. Due on due Goal RLP. Due on due Goal PAP. Due on due Goal Depression screening. Due on due Goal Influenza Vaccine. Due on Oc due Goal Influenza Vaccine. Due on Oc due Goal Depression screening. Due on due Goal PAP. Due on due Goal RLP. Due on due Goal Tdap. Due on due Goal Tdap. Due on due Goal RLP. Due on due Goal PAP. Due on due Goal Depression screening. Due on due Goal Influenza Vaccine. Due on Oc due History Of Present Illness Encounter Date Complaint History Of Prese nt Illness Extractions Functional Status Date Functional Assessmen t No Information Instructions Date Instruction Additional Infor mation No Information Assessments Type Assessment Date assessment Encounter for screening for dent al disorders Patient Care Teams Name Effective Dates (start - stop) Status Members No Information
--- OUTSIDE RECORDS SUMMARY | 2025-06-22 12:00 | XMS_ITS | Encounter Summary ---
Author Organization [facility] Address [address] [place] [address] Care Team Providers Care Human Capital Consultant Name Role Phone Jef Ramirez DO Primary Care Provider [phone] Encounter Details DateTypeDepartmentCare Team (Latest Contact Info)Hskdrllrwpp85/20/2025 1:00 PM EDTAncillary Procedure [facility] [address] [place] [address] size inconsistent with dates ([facility]) Social History Tobacco UseTypesPacks/DayYears UsedDateSmoking Tobacco: Never AssessedPHQ-2 AnswerDate RecordedPatient Health Questionnaire-2 Qxmrd999 Estimated Date of LpcxjnidAnqnreyrBxs79/08/2025Based on UltrasoundSex and Gender InformationValueDate RecordedSex Assigned at BirthNot on fileLegal SexFemale 11/15/2022 6:46 PM EDTGender IdentityNot on fileSexual OrientationNot on file documented as of this encounter Plan of Treatment DateTypeDepartmentCare Team (Latest Contact Info)Wnvnfusrnhb66/05/2025 11:20 AM ESTRoutine NOMArrno CHANDLERGYRyan [address] [address] Harjeet Mohamud DO [address] [place], [place] [id number] documented as of this encounter Procedures Procedure NamePriorityDate/TimeAssociated DiagnosisCommentsUS OB FOLLOW UP TRANSABDOMINAL EGLUSFCENozqiih74/20/2025 1:40 PM EDT size inconsistent with dates ([facility]) documented in this encounter Results * US OB follow up transabdominal approach (06/22/2025 1:40 PM EDT)Anatomical RegionLateralityModalityBodyUltrasoundStudy GAStudy DateStudy EDDWorking DAY (Source)Specimen (Source)Anatomical Location / LateralityCollection Method / VolumeCollection TimeReceived Time06/22/2025 4:14 PM EDT Impressions 06/23/2025 7:40 AM EDT 1. Single, live intrauterine , current sonographic age of 34 weeks and 0 days, with an estimated date of delivery of August 14, 2025. 2. Prior examination of March 23, 2025 weight by percentile was 91% and prior date of deliverywas August 06, 2025. * ??Estimated Weight (g) by Percentile is based upon an accurate estimated age based onlast menstrual period. ?? TRANSCRIBED BY: ? ELECTRONICALLY SIGNED BY: Tyson Lopez MD Narrative 06/23/2025 7:40 AM EDT FINDINGS: A single, live intrauterine is present with normal cardiac rate of ??158 beats per minute. Normal activity and amniotic fluid volume. Amniotic fluid index is ??12 cm. ??Morphology is grossly normal. ??The placenta is posterior, Grade 1 not associated with the cervical os. ??The current sonographic age is 34 ??weeks and 0 ??days, based on the following measurements: BPD ? 8.2 cm (33 weeks, 0 days) Head Circumference ?31.3cm (35 ??weeks,0 ??days) Abdominal Circumference ?29.1cm (33 weeks, 1 days) Femur Length ?6.8cm (35 weeks,0 ??days) Presentation ? Cephalic ? Placenta ? posterior, Grade 1 Weight (g) by Percentile ??67.5 % * These measurements result in an estimated date of delivery of ??August 03, 2025. ?? The current estimated weight is ??2287grams (5 ??pound, 1 ounces). ?? Procedure Note Tyson Lopez MD - 06/23/2025 FINDINGS: A single, live intrauterine is present with normal cardiacrate of 158 beats per minute. Normal activity and amniotic fluidvolume. Amniotic fluid index is 12 cm. Morphology is grossly normal.The placenta is posterior, Grade 1 not associated with the cervical os.The current sonographic age is 34 weeks and 0 days, based on thefollowing measurements: BPD 8.2 cm (33 weeks, 0 days) Head Circumference 31.3cm (35 weeks,0 days) Abdominal Circumference 29.1cm (33 weeks, 1 days) Femur Length 6.8cm (35 weeks,0 days) Presentation Cephalic Placenta posterior, Grade 1 Weight (g) by Percentile 67.5 % * These measurements result in an estimated date of delivery of August. The current estimated weight is 2287grams (5 pound, 1ounces). IMPRESSION: 1. Single, live intrauterine , current sonographic age of 34weeks and 0 days, with an estimated date of delivery of August. 2. Prior examination of March 23, 2025 weight by percentile was 91%and prior date of delivery was August 06, 2025. * Estimated Weight (g) by Percentile is based upon an accurateestimated age based on last menstrual period. TRANSCRIBED BY: ELECTRONICALLY SIGNED BY: Tyson Lopez MD Authorizing ProviderResult TypeResult StatusMervat Hall NPIMG OB US PROCEDURESFinal Result documented in this encounter Visit Diagnoses Diagnosis size inconsistent with dates ([facility]) documented in this encounter Care Teams Team MemberRelationshipSpecialtyStart DateEnd Date Jef Ramirez DO [address] [place] [phone] PCP - General09/11/24documented as of this encounter
--- OUTSIDE RECORDS SUMMARY | 2025-06-22 12:30 | XMS_ITS | Encounter Summary ---
Author Organization [facility] Address [address] [place] [address] Care Team Providers Care Branch Mechanic Name Role Phone Jef Ramirez Primary Care Provider [phone] Reason for Visit * ReasonCommentsRoutine Visit Encounter Details DateTypeDepartmentCare Team (Latest Contact Info)Xgmaphpcywo42/20/2025 1:30 PM EDTRoutine [facility] [address] [place] [address] Harjeet Mohamud DO [address] [place], [place] [phone] Third trimester ([facility]); 33 weeks gestation of ([facility]) Social History Tobacco UseTypesPacks/DayYears UsedDateSmoking Tobacco: Never AssessedPHQ-2 AnswerDate RecordedPatient Health Questionnaire-2 Tpesz566 Estimated Date of OnbfzbyxMghambdlMhb43/08/2025Based on UltrasoundSex and Gender InformationValueDate RecordedSex Assigned at BirthNot on fileLegal SexFemale 11/15/2022 6:46 PM EDTGender IdentityNot on fileSexual OrientationNot on file documented as of this encounter Last Filed Vital Signs Vital SignReadingTime TakenCommentsBlood Bhedewrc131/7006/22/2025 1:58 PM EDT Pulse--Temperature--Respiratory Rate--Oxygen Saturation--Inhaled Oxygen Concentration--Zpdban23.7 kg (189 lb)06/22/2025 1:58 PM EDTHeight--Body Mass Index31.4506 9:53 AM EDTdocumented in this encounter Progress Notes * Mervat Hall NP - 06/22/2025 1:30 PM EDT Reason for Appointment: Patient ID: Tristen Mccracken is a 30 y.o. female who presents for Routine Visit Patient presents today for Return OB appointment. MEDICATIONS Current Outpatient Medications Medication Instructions magnesium oxide (MAG-OX) 400 mg, Oral, Daily MV-Min-Fe Fum-FA-DHA ( 1 PO) 1 tablet, Daily ALLERGIES Allergies[1] PROBLEMS Active Ambulatory Problems Diagnosis Date Noted Irregular bleeding 03/20/2023 Resolved Ambulatory Problems Diagnosis Date Noted No Resolved Ambulatory Problems Past Medical History: Diagnosis Date Irregular menses HISTORY PAST MEDICAL HISTORY SOCIAL HISTORY Medical History[2] Social History Tobacco Use Smoking status: Not on file Smokeless tobacco: Not on file Substance Use Topics Alcohol use: Not on file Drug use: Not on file FAMILY HISTORY Family History[3] SURGICAL HISTORY Surgical History[4] REVIEW OF SYSTEMS Review of Systems: Review of Systems Constitutional: Negative. HENT: Negative. Eyes: Negative. Respiratory: Negative. Cardiovascular: Negative. Gastrointestinal: Negative. Genitourinary: Negative. Musculoskeletal: Negative. Skin: Negative. Neurological: Negative. All other systems reviewed and are negative. Hematological: Negative. Endocrine: Negative. Allergic/Immunologic: Negative. OBJECTIVE Objective: Physical Exam Constitutional: Appearance: Normal appearance. She is well-developed. Cardiovascular: Rate and Rhythm: Normal rate and regular rhythm. Pulmonary: Effort: Pulmonary effort is normal. Breath sounds: Normal breath sounds. Abdominal: General: Bowel sounds are normal. There is no distension. Palpations: Abdomen is soft. Tenderness: There is no abdominal tenderness. There is no guarding or rebound. Musculoskeletal: General: No swelling. Normal range of motion. Right lower leg: No edema. Left lower leg: No edema. Neurological: Mental Status: She is alert and oriented to person, place, and time. Skin: General: Skin is warm and dry. Psychiatric: Mood and Affect: Mood normal. Behavior: Behavior normal. Vitals and nursing note reviewed. Exam conducted with a cloth opener hand present. Vitals: Estimated body mass index is 31.45 kg/m?? as calculated from the following: Height as of 02/18/25: 5' 5 . Weight as of this encounter: 189 lb. BP: 110/70 Patient's last menstrual period was 10/17/2024. Assessment/Plan ICD-10-CM 1. Third trimester ([facility]) Z34.93 2. 33 weeks gestation of ([facility]) Z3A.33 POCT urinalysis dipstick manually resulted Return OB: Patient presents today for a routine obstetrics appointment. Patient is currently 33w0d . Patient states she is doing well but has complaints of being tired due to current . Patient has verbalizes frequent movement. labor precautions was discussed/given and patient was instructed to perform kick counts three times a day. Orders Placed This Encounter Procedures POCT urinalysis dipstick manually resulted Follow Up: Patient is to return to office in 2 week for routine OB appointment. Documented by Mervat Hall NP on behalf of: Harjeet Mohamud DO [1] No Known Allergies [2] Past Medical History: Diagnosis Date Irregular menses [3] No family history on file. [4] Past Surgical History: Procedure Laterality Date VAGINAL DELIVERY x2 2014&2017 documented in this encounter Plan of Treatment DateTypeDepartmentCare Team (Latest Contact Info)Eggsfifrkun65/05/2025 11:20 AM ESTRoutine [facility] [address] [place] [address] Harjeet Mohamud DO [address] [place] [address] documented as of this encounter Procedures Procedure NamePriorityDate/TimeAssociated DiagnosisCommentsPOCT URINALYSIS GNGOCMGKZlwxzyd26/20/2025 2:07 PM EDT 33 weeks gestation of ([facility]) documented in this encounter Results * POCT urinalysis dipstick manually resulted (06/22/2025 2:07 PM EDT)Component ValueRef RangeTest MethodAnalysis TimePerformed AtPathologist SignatureColor, UAYellowClarity, UAClearGlucose, UANegativeNegative - 2000(110) ++++ mg/dL Bilirubin, UANegativeNegative - 4(70) +++ mg/dLKetones, UANegativeNegative - 160(16) ++++ mg/dLSpec Grav, UA1.0051 - 1.03Blood, UANegativeNegative - 50 Hesham/mcLpH, UA7.55 - 9Protein, UANegativeNegative - 2000(20) ++++ mg/dL Urobilinogen, UA2.00.2 - 12 mg/dLLeukocytes, UANegativeNegative - 500+++ Dary/mcLNitrite, UANegativeNegative - PositiveSpecimen (Source)Anatomical Location / LateralityCollection Method / VolumeCollection TimeReceived Time Urine06/22/2025 2:07 PM EDT Narrative Authorizing ProviderResult TypeResult StatusCorey Oneida DOPOINT OF CARE TEST ENTER/EDIT ORDERABLESFinal Result documented in this encounter Visit Diagnoses Diagnosis Third trimester ([facility]) state, incidental 33 weeks gestation of ([facility]) documented in this encounter Care Teams Team MemberRelationshipSpecialtyStart DateEnd Date Jef Ramirez DO [facility] [place] [phone] PCP - General09/11/24documented as of this encounter
--- OUTSIDE RECORDS SUMMARY | 2025-07-06 11:48 | XMS_ITS | Encounter Summary ---
Author Organization [facility] Address [address] [place] [address] Care Team Providers Care Assistant Broker Name Role Phone Jef Ramirez Primary Care Provider [phone] Encounter Details DateTypeDepartmentCare Team (Latest Contact Info)Hxiplyzryhu60/03/2025Telephone [facility] [address] [address] Harjeet Mohamud DO [address] [place], [facility] Social History Tobacco UseTypesPacks/DayYears UsedDateSmoking Tobacco: Never AssessedPHQ-2 AnswerDate RecordedPatient Health Questionnaire-2 Vmpzs083 Estimated Date of MtqnscreFootoylfQex13/08/2025Based on UltrasoundSex and Gender InformationValueDate RecordedSex Assigned at BirthNot on fileLegal SexFemale 11/15/2022 6:46 PM EDTGender IdentityNot on fileSexual OrientationNot on file documented as of this encounter Miscellaneous Notes * Telephone Encounter - Hanny CHANDA Mercado - 07/06/2025 9:25 AM EST I am 35 weeks . I have been having some pretty bad pelvic pain the last week and a half, but the last like, 3 days it is been hard to walk. I have been real nauseous, I have been leaking discharge, I was just calling to see if that is normal. Or if I need to come in? My appointment is Sunday. But again, I I can hardly get up and walk around. I am in so much pain. Patient call was returned and she was asked if having any Ty Ayers. Patient states that these have been pretty steady she has not timed them but consistent. Patient states that the pain has gotten worse and hurts so bad to walk. Patient was advised to head to be checked out. PVU Called and spoke with Vaishali at [facility] and advised patient is coming from home. Episode sent at this time. documented in this encounter Plan of Treatment DateTypeDepartmentCare Team (Latest Contact Info)Punwspgfiuy46/05/2025 11:20 AM ESTRoutine [facility] [address] [address] Harjeet Mohamud DO [address] [place], [place] [id number] documented as of this encounter Visit Diagnoses Not on filedocumented in this encounter Care Teams Team MemberRelationshipSpecialtyStart DateEnd Date Jef Ramirez DO [address] [place] [phone] PCP - General09/11/24documented as of this encounter
--- OUTSIDE RECORDS SUMMARY | 2025-07-06 11:48 | XMS_ITS | Clinical Summary ---
Author Organization [facility] Address [address] [place] [address] Care Team Providers Care Hospital Cleaner Name Role Phone Jef Ramirez DO Primary Care Provider [phone] Allergies No known active allergies Medications MedicationSigDispense QuantityRefillsLast FilledStart DateEnd DateStatus MV-Min-Fe Fum-FA-DHA ( 1 PO) Take 1 tablet by mouth DailyActive magnesium oxide (Mag-Ox) 400 MG tablet Indications:Restless legTake 1 tablet (400 mg) by mouth Daily 30 tablet 11004/22//6Active Active Problems ProblemNoted DateDiagnosed DateIrregular rmwtndny75/18/2023Estimated Date of IcsfnrmqZdbuggmsYqq46/08/2025Based on Ultrasound Encounters DateTypeDepartmentCare GrwiVonhpbiruay73/03/2025[place] [address] Harjeet Mohmaud DO 06/22/2025 1:30 [place] [address] Harjeet Mohamud DO Third trimester ([facility]); 33 weeks gestation of ([facility])06/22/2025 1:00 PM EDTAncillary [place] [address] size inconsistent with dates ([facility])06/16/2025Patient Outreach [facility] [address] [place] [address] Josseline Hastings, CHANDA 06/15/2025bstract [facility] [address] [place] [address] Harjeet Mohamud DO 06/12/2025bstract [facility] [address] [place] [address] Josseline Hastings, CHANDA 06/08/2025 9:00 AM EDTRoutine [facility] [address] [place] [address] Mervat Hall, CHRISTIE size inconsistent with dates ([facility]) (Primary Dx); 31 weeks gestation of ([facility]); Third trimester ([facility])06/08/2025amboo flowsheet [facility] [address] [place] [address] Mervat Hall, CHRISTIE 05/19/2025 1:30 PM EDTRoutine [facility] [address] [place] [address] Josseline Andersen PA Third trimester ([facility]); 28 weeks gestation of ([facility])05/19/2025amboo flowsheet [facility] [address] [place] [address] [place] [address] Josseline Andersen PA 04/27/2025linisync Result Encounter N[facility] External Department Unsolicited Josseline Andersen PA 04/22/2025 3:50 PM EDTRoutine [facility] [address] [place] [address] Josseline Andersen PA Second trimester ([facility]); 24 weeks gestation of ([facility]); Diabetes mellitus screening; Restless leg04/22/2025amboo flowsheet [facility] [address] [place] [address] Josseline Andersen PA from Last 3 Months Social History Tobacco UseTypesPacks/DayYears UsedDateSmoking Tobacco: Never AssessedPHQ-2 AnswerDate RecordedPatient Health Questionnaire-2 Mcwco907 Estimated Date of IyjotlsrApuypgprXxh32/08/2025Based on UltrasoundSex and Gender InformationValueDate RecordedSex Assigned at BirthNot on fileLegal SexFemale 11/15/2022 6:46 PM EDTGender IdentityNot on fileSexual OrientationNot on file Last Filed Vital Signs Vital SignReadingTime TakenCommentsBlood Tvoquuiz579/7006/22/2025 1:58 PM EDT Pulse--Temperature--Respiratory Rate--Oxygen Saturation--Inhaled Oxygen Concentration--Wjmixv58.7 kg (189 lb)06/22/2025 1:58 PM SYHRempke981.1 cm (5' 5 )02/18/2025 9:53 AM EDTBody Mass Index31.45002/18/2025 9:53 AM EDT Plan of Treatment DateTypeDepartmentCare Team (Latest Contact Info)Nqiwknepjtx63/05/2025 11:20 AM ESTRoutine [facility] [address] [place] [address] Harjeet Mohamud, [address] [place], [place] [id number] Procedures Procedure NamePriorityDate/TimeAssociated DiagnosisCommentsPOCT URINALYSIS PADHQIYCZkzuauf55/20/2025 2:07 PM EDT 33 weeks gestation of ([facility]) US OB FOLLOW UP TRANSABDOMINAL NVHFORSRAhmaigk94/20/2025 1:40 PM EDT size inconsistent with dates ([facility]) POCT URINALYSIS BNXSWJRJXepjvzv37/06/2025 9:21 AM EDT 31 weeks gestation of ([facility]) GLUCOSE 1 AMYAHlfjocz90/ 2:16 PM EDT ALL CBC WITH AUTO HDQXMkmmblk14/25/2025 2:16 PM EDT POCT URINALYSIS OJPTNSQBJaflymu47/20/2025 4:25 PM EDT Second trimester ([facility]) 24 weeks gestation of ([facility]) from Last 3 Months Results * POCT urinalysis dipstick manually resulted (06/22/2025 2:07 PM EDT) Only the most recent of3 resultswithin the time period is included. ComponentValueRef RangeTest MethodAnalysis TimePerformed AtPathologist Signature Color, UAYellowClarity, UAClearGlucose, UANegativeNegative - 2000(110) ++++ mg/dLBilirubin, UANegativeNegative - 4(70) +++ mg/dLKetones, UANegativeNegative - 160(16) ++++ mg/dLSpec Grav, UA1.0051 - 1.03Blood, UANegativeNegative - 50 Hesham/mcLpH, UA7.55 - 9Protein, UANegativeNegative - 2000(20) ++++ mg/dL Urobilinogen, UA2.00.2 - 12 mg/dLLeukocytes, UANegativeNegative - 500+++ Dary/mcL Nitrite, UANegativeNegative - PositiveSpecimen (Source)Anatomical Location / LateralityCollection Method / VolumeCollection TimeReceived DlhjYzets15/20/2025 2:07 PM EDT Narrative Authorizing ProviderResult TypeResult StatusCorey Oneida DOPOINT OF CARE TEST ENTER/EDIT ORDERABLESFinal Result * US OB follow up transabdominal approach [...] StatusMervat Hall NPIMG OB US PROCEDURESFinal Result * GLUCOSE 1 HOUR (04/27/2025 2:16 PM EDT)ComponentValueRef RangeTest Method Analysis TimePerformed AtPathologist SignatureGLUCOSE 1 CFND377<130 mg/dLTBH Specimen (Source)Anatomical Location / LateralityCollection Method / Volume Collection TimeReceived Time04/27/2025 2:16 PM EDT04/27/2025 2:17 PM EDT Narrative [facility] - 04/27/2025 2:52 PM EDT Authorizing ProviderResult TypeResult StatusJosseline KRISHNA BLOOD ORDERABLES Final ResultPerforming OrganizationAddressCity/State/ZIP CodePhone Number [facility] * (ABNORMAL) ALL CBC WITH AUTO DIFF (04/27/2025 2:16 PM EDT)ComponentValueRef RangeTest MethodAnalysis TimePerformed AtPathologist SignatureTBH WBC6.14.0 - 11.0 10 3/uLTBHTBH RBC3.39(L)4.20 - 5.40 10 6/uLTBHTBH HGB10.9(L)12.0 - 16.0 g/dLTBHTBH HCT31.9(L)36.0 - 48.0 %TBHTBH MCV94.181.0 - 99.0 fLTBHTBH MCH32.2 26.7 - 34.0 pgTBHTBH MCHC34.229.9 - 35.2 g/dLTBHTBH RDW12.311.0 - 15.0 %TBHTBH YPX582205 - 450 10 3/uLTBHTBH MPV9.79.5 - 13.5 fLTBHNEUTROPHILS PERCENT AUTO 64.843.0 - 75.0 %TBHLYMPHOCYTES PERCENT AUTO24.120.5 - 60.0 %TBHMONOCYTES PERCENT AUTO9.31.7 - 12.0 %TBHTBH EO %1.10.9 - 7.0 %TBHBASOPHILS PERCENT AUTO 0.20.2 - 2.0 %TBHIMMATURE GRANULOCYTES PCT AUTO0.50.0 - 0.5 %TBHNEUTROPHILS ABSOLUTE AUTO4.01.4 - 6.5 10 3/uLTBHLYMPHOCYTES ABSOLUTE AUTO1.51.2 - 3.8 10 3/uLTBHMONOCYTES ABSOLUTE AUTO0.60.3 - 0.8 10 3/uLTBHTBH EO #0.10.0 - 0.7 10 3/uLTBHBASOPHILS ABSOLUTE AUTO0.00.0 - 0.1 10 3/uLTBHIMMATURE GRANULOCYTES ABS AUTO0.030.00 - 0.03 10 3/uLTBHSpecimen (Source)Anatomical Location / LateralityCollection Method / VolumeCollection TimeReceived Time04/27/2025 2:16 PM EDT04/27/2025 2:17 PM EDT Narrative [facility] - 04/27/2025 2:45 PM EDT Authorizing ProviderResult TypeResult StatusAmy [place] PACLINISYNCFinal Result Performing OrganizationAddressCity/State/ZIP CodePhone Number CLINIS[facility]NC [facility] from Last 3 Months Insurance Care Teams Team MemberRelationshipSpecialtyStart DateEnd Date Jef Ramirez DO [facility] [place] [address] PCP - General09/11/24
[2025-07-06 12:07] VITALS: BP 112/57; PULSE 96
[2025-07-06 12:08] LABS: Glucose Urine UA NEGATIVE (NEGATIVE)
--- OUTSIDE RECORDS SUMMARY | 2025-07-06 12:10 | XMS_ITS | CCD ---
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 Impression dictated by: Mandeep Chowdhury M.D.11/18/2022 10:37 AM Dictation Location: [place] [address] Transcribed By: [facility] 11/18/22 1037 Dictated By: Mandeep Chowdhury II, MD 11/18/22 1032 Signed By: 11/18/22 1037NormalLicking Memorial HospitalCalcium [Mass/volume] in Serum or PlasmaOrdered By: Caron Ribeiro on 58-20-9498Onyzsfe [Mass/Vol]9.3 mg/dL8.6-10.3FTrinity Health System West CampusCannabinoids [Presence] in Urine by Screen methodOrdered By: Caron Ribeiro on 81-79-0171Oocjpyljuqlp Screen Ql (U)PositiveNegativeLicking Memorial HospitalComment on above:These are unconfirmed results and should not be used for legal purposes. Drug Cut-Off Concentration: AMPH 1000 ng/mL NOEMI 200 ng/mL EVER 200 ng/mL COCM 300 ng/mL OP 300 ng/mL PCP 25 ng/mL THC 20 ng/mLCarbon dioxide, total [Moles/volume] in Serum or PlasmaOrdered By: Caron Ribeiro on 46-54-0071MB2 [Moles/Vol]16.3 mmol/L 21.0-31.0L[facility] HospitalChloride [Moles/volume] in Serum or PlasmaOrdered By: Caron Ribeiro on 81-36-8120Zeaybfzq [Moles/Vol]108 mmol/L 98-107Licking Memorial HospitalColor Auto (U)Ordered By: Caron Ribeiro on 65-51-0159Vpxhy (U)YellowYellowLicking Memorial HospitalComplete Blood Count Auto Diffon 62-87-1753Fnunoxlyc (Bld) [#/Vol]0.0 10*3/uLNormal 0.0-0.2FTrinity Health System West CampusComment on above:Result Comment: PERFORMED BY: [place] [address] PATHOLOGIST SENIOR SOLUTIONS CONSULTANT ELDER HUFF M.D.Performed By: #### HS TROP, CBC, CMP, CK #### [place] [address] USABasophils/100 WBC (Bld)0.5 %Normal.[facility] HospitalComment on above:Performed By: #### HS TROP, CBC, CMP, CK #### [place] [address] USAEosinophils (Bld) [#/Vol]0.1 10*3/uLNormal0.0-0.45 [facility] HospitalComment on above:Performed By: #### HS TROP, CBC, CMP, CK #### [place] [address] USAEosinophils/100 WBC (Bld)0.7 %Normal.L[facility] HospitalComment on above:Performed By: #### HS TROP, CBC, CMP, CK #### [place] [address] USAErythrocyte distribution width (RBC) [Ratio]12.9 %Normal 11.9-15.3FTrinity Health System West CampusComment on above:Performed By: #### HS TROP, CBC, CMP, CK #### [place] [address] USAHematocrit (Bld) [Volume fraction]38.0 %Ocpwal07.0-46.4 [facility] HospitalComment on above:Performed By: #### HS TROP, CBC, CMP, CK #### [place] [address] USAHemoglobin (Bld) [Mass/Vol]12.9 g/zUDoenps75.8-15.4 [facility] HospitalComment on above:Performed By: #### HS TROP, CBC, CMP, CK #### [place] [address] USALymphocytes (Bld) [#/Vol]2.7 10*3/uLNormal1.00-4.8 [facility] HospitalComment on above:Performed By: #### HS TROP, CBC, CMP, CK #### [place] [address] USALymphocytes/100 WBC (Bld)29.8 %Normal.[facility] HospitalComment on above:Performed By: #### HS TROP, CBC, CMP, CK #### [place] [address] USAMCH (RBC) [Entitic mass]30.8 zwNhuvls92.7-34.3FTrinity Health System West CampusComment on above:Performed By: #### HS TROP, CBC, CMP, CK #### [place] [address] USAMCV (RBC) [Entitic vol]90.6 gOLgidhx33-754ZknwzlmgmLicking Memorial HospitalComment on above:Performed By: #### HS TROP, CBC, CMP, CK #### [place] [address] USAMean Corpuscular HGB Conc34.0 g/rGGzmfxo28.0-35.0L[facility] HospitalComment on above:Performed By: #### HS TROP, CBC, CMP, CK #### [place] [address] USAMonocytes (Bld) [#/Vol]0.5 10*3/uLNormal0.0-0.8L[facility] Memorial HospitalComment on above:Performed By: #### HS TROP, CBC, CMP, CK #### [facility] [address] [place] [address] USAMonocytes/100 WBC (Bld)17.76 %Normal0.00-20.00Licking Memorial HospitalComment on above:Performed By: #### HS TROP, CBC, CMP, CK #### [facility] [address] [place] [address] USAMonocytes/100 WBC (Bld)5.1 %Normal.[facility] Memorial HospitalComment on above:Performed By: #### HS TROP, CBC, CMP, CK #### [place] [address] USANeutrophils (Bld) [#/Vol]5.7 10*3/uLNormal1.8-7.7FTrinity Health System West CampusComment on above:Performed By: #### HS TROP, CBC, CMP, CK #### [place] [address] USANeutrophils/100 WBC (Bld)63.9 %Normal.[facility] HospitalComment on above:Performed By: #### HS TROP, CBC, CMP, CK #### [place] [address] USANRBC%0.1 /100{WBC}Normal0-0.5FTrinity Health System West CampusCommclaren caro region on above:Performed By: #### HS TROP, CBC, CMP, CK #### [facility] [address] [place] [address] USAPlatelet mean volume (Bld) [Entitic vol]6.9 fLNormal 6.3-10.7FTrinity Health System West CampusComment on above:Performed By: #### HS TROP, CBC, CMP, CK #### [place] [address] USAPlatelets (Bld) [#/Vol]277 10*3/yDGlfoqo586-294UkccryrqmLicking Memorial HospitalComment on above:Performed By: #### HS TROP, CBC, CMP, CK #### [address] [place] [address] USARBC (Bld) [#/Vol]4.20 10*6/uLNormal3.60-5.00L[facility] HospitalComment on above:Performed By: #### HS TROP, CBC, CMP, CK #### [facility] [address] [place] [address] USAWBC (Bld) [#/Vol]8.9 10*3/uLNormal3.8-11.6FTrinity Health System West CampusComment on above:Performed By: #### HS TROP, CBC, CMP, CK #### [place] [address] USAComprehensive Metabolic Panelon 61-42-4392Camwshn [Mass/Vol]4.8 g/dLNormal3.5-5.7FTrinity Health System West CampusComment on above:Performed By: #### HS TROP, CBC, CMP, CK #### [place] [address] USAAlbumin/Globulin [Mass ratio]1.7 {ratio}NormalLicking Memorial HospitalComment on above:Performed By: #### HS TROP, CBC, CMP, CK #### [place] [address] USAALP [Catalytic activity/Vol]48 U/XYzxxeu46-640WasddjmsgLicking Memorial HospitalComment on above:Performed By: #### HS TROP, CBC, CMP, CK #### [facility] [address] [place] [address] USAALT [Catalytic activity/Vol]26 U/LNormal7-52Licking Memorial HospitalComment on above:Performed By: #### HS TROP, CBC, CMP, CK #### [facility] [address] [place] [address] USAAnion gap [Moles/Vol]18.9 mmol/LHigh6.0-15.0L[facility] HospitalComment on above:Performed By: #### HS TROP, CBC, CMP, CK #### [place] [address] USAAST [Catalytic activity/Vol]24 U/HUjktku25-82BtxeiabowLicking Memorial HospitalComment on above:Performed By: #### HS TROP, CBC, CMP, CK #### [facility] [address] [place] [address] USABilirubin [Mass/Vol]0.3 mg/dLNormal0.3-1.0L[facility] HospitalComment on above:Performed By: #### HS TROP, CBC, CMP, CK #### [facility] [address] [place] [address] USACalcium [Mass/Vol]9.3 mg/dLNormal8.6-10.3FTrinity Health System West CampusComment on above:Performed By: #### HS TROP, CBC, CMP, CK #### [facility] [address] [place] [address] USAChloride [Moles/Vol]108 mmol/EMmey49-315FoplpanqmLicking Memorial HospitalComment on above:Performed By: #### HS TROP, CBC, CMP, CK #### [place] [address] USACO2 [Moles/Vol]16.3 mmol/LLow21.0-31.0L[facility] Memorial HospitalComment on above:Performed By: #### HS TROP, CBC, CMP, CK #### [facility] [address] [place] [address] USACreatinine [Mass/Vol]0.54 mg/dLLow0.60-1.20[facility] HospitalComment on above:Performed By: #### HS TROP, CBC, CMP, CK #### [place] [address] USACreatinine Clr Calc Sryeerkj191.65NormalLicking Memorial HospitalComment on above:Result Comment: PERFORMED BY: [place] [address] PATHOLOGIST SENIOR SOLUTIONS CONSULTANT ELDER HUFF M.D.Performed By: #### HS TROP, CBC, CMP, CK #### [place] [id number] USAGFR/1.73 sq M.predicted MDRD (S/P/Bld) [Vol rate/Area] mL/min/{1.73_m2}NormalLicking Memorial HospitalComment on above: Performed By: #### HS TROP, CBC, CMP, CK #### [facility] [address] [place] [address] USAGlobulin (S) [Mass/Vol]2.9 g/dLNormalLicking Memorial HospitalComment on above:Performed By: #### HS TROP, CBC, CMP, CK #### [facility] [address] [place] [address] USAGlucose [Mass/Vol]160 mg/iKNoaq27-127AyxfmjipsLicking Memorial HospitalComment on above:Result Comment: Random Glucose Reference Range is dependent on time and content of last meal. Glucose of more than 200 mg/dL in a nonstressed, ambulatory subject supports the diagnosis of Diabetes Mellitus. ADA recommended reference rangePerformed By: #### HS TROP, CBC, CMP, CK #### [facility] [address] [place] [address] USAPotassium [Moles/Vol]3.2 mmol/LLow3.5-5.1FTrinity Health System West CampusComment on above:Performed By: #### HS TROP, CBC, CMP, CK #### [facility] [address] [place] [address] USAProtein [Mass/Vol]7.7 g/dLNormal6.4-8.9L[facility] HospitalComment on above:Performed By: #### HS TROP, CBC, CMP, CK #### [facility] [address] [place] [address] USASodium [Moles/Vol]140 mmol/EXasxvg663-875YhmrxdwyeLicking Memorial HospitalComment on above:Performed By: #### HS TROP, CBC, CMP, CK #### [facility] [address] [place] [address] USAUrea nitrogen [Mass/Vol]19 mg/dLNormal7-25L[facility] Memorial HospitalComment on above:Performed By: #### HS TROP, CBC, CMP, CK #### [facility] [address] [place] [id number] USACreatine Kinaseon 13-18-1134VS [Catalytic activity/Vol]112 U/QRonljd07-892WnhhydeiyLicking Memorial HospitalComment on above:Performed By: #### HS TROP, CBC, CMP, CK #### [facility] [address] [place] [address] USACreatine kinase [Enzymatic activity/volume] in Serum or PlasmaOrdered By: Caron Ribeiro on 17-34-6512AR [Catalytic activity/Vol]112 U/L [facility] HospitalCreatinine [Mass/volume] in Serum or PlasmaOrdered By: Caron Ribeiro on 78-54-3854Aenmjklams [Mass/Vol]0.54 mg/dL 0.60-1.20L[facility] Memorial HospitalDrug Screen,Urineon 11-18-2022 Amphetamine Screen,UrineNegativeNormalNegativeLicking Memorial Hospital Comment on above:Performed By: #### URDS, CG, UA #### [place] [address] USABarbiturate Screen,UrineNegativeNormalNegativeLicking Memorial HospitalComment on above:Performed By: #### URDS, CG, UA #### [place] [address] USABenzodiazepines Screen,UrineNegativeNormalNegative [facility] HospitalComment on above:Performed By: #### URJORGE A, CG, UA #### [place] [address] USACannabinoid Screen,UrinePositiveHighNegativeLicking Memorial HospitalComment on above:Result Comment: These are unconfirmed results and should not be used for legal purposes. Drug Cut-Off Concentration: AMPH 1000 ng/mL NOEMI 200 ng/mL EVER 200 ng/mL COCM 300 ng/mL OP 300 ng/mL PCP 25 ng/mL THC 20 ng/mL PERFORMED BY: [place] [address] PATHOLOGIST SENIOR SOLUTIONS CONSULTANT ELDER HUFF M.D.Performed By: #### URDS, UHCG, UA #### [facility] [address] [place] [address] USACocaine Screen,UrineNegativeNofrye regional medical center alexander campusNegMercy Health Fairfield HospitalComment on above:Performed By: #### URDS, UHCG, UA #### [facility] [address] [place] [address] USAOpiate Screen,UrineNegativeNormmaNegMercy Health Fairfield HospitalComment on above:Performed By: #### URDS, UHCG, UA #### [facility] [address] [place] [address] USAPhencyclidine Screen,UrineNegativeOhioHealth Grove City Methodist HospitalComment on above:Performed By: #### URDS, UHCG, UA #### [facility] [address] [place] [address] USAECG 12 lead ECGon 47-60-4121QSW 12 lead ECGWRIGHT-PAT[facility] Main [address] [place] [address] Electrocardiograph Report Signed Patient: Tristen Mccracken MR#: [id number] 0 : 1995 Acct:[id number] Age/Sex: 27 / F ADM Date: 11/18/22 Loc: ER Room: Type: [facility] ER Attending Dr: Ordering Provider: Caron Ribeior Jr, MD Date of Service: 11/18/22 ECG/ECG 12 lead ECG: ALTERED MENTAL STATUS Copies to: Test Reason : Blood Pressure : 116/076 mmHG Vent. Rate : 070 BPM Atrial Rate : 070 BPM P-R Int : 130 ms QRS Dur : 098 ms QT Int : 428 ms P-R-T Axes : 030 066 052 degrees QTc Int : 462 ms Normal sinus rhythm Normal ECG No previous ECGs available Confirmed by CARON RIBEIRO MD ([id number]) on 11/18/2022 7:42:29 AM Referred By: Electronically Signed By:CARON RIBEIRO MD Transcribed By: MUS Signed By Caron Ribeiro Jr, [place] [id number] CenterEosinophils Auto (Bld) [#/Vol] Ordered By: Caron Ribeiro on 27-52-7873Baulhbqrkhz (Bld) [#/Vol]0.1 10*3/uL 0.0-0.45L[facility] Memorial HospitalEosinophils/100 WBC Auto (Bld)Ordered By: Caron Ribeiro on 99-69-8909Pfhpgqbjgxf/100 WBC (Bld)0.7 %.[facility] Memorial HospitalErythrocyte distribution width Auto (RBC) [Ratio]Ordered By: Caron Ribeiro on 30-25-3565Cspisndwxnh distribution width (RBC) [Ratio]12.9 % 11.9-15.3FTrinity Health System West CampusEthanol [Mass/volume] in Serum or PlasmaOrdered By: Caron Ribeiro on 04-99-0132Vixoibi [Mass/Vol]246 mg/dL [facility] HospitalEthanol [Mass/Vol]0.246 %[facility] HospitalEthyl Alcohol Profileon 28-09-0524Jhcyhfc [Mass/Vol]246 mg/dL [facility] CenterComment on above:Performed By: #### HS TROP, CBC, CMP, CK #### [facility] [address] [place] [address] USAPercent Ethanol0.246 %[facility] CenterComment on above:Result Comment: PERFORMED BY: [place] [address] PATHOLOGIST SENIOR SOLUTIONS CONSULTANT ELDER HUFF M.D.Performed By: #### HS TROP, CBC, CMP, CK #### [facility] [address] [place] [address] USAGlobulin Calc (S) [Mass/Vol]Ordered By: Caron Ribeiro on 75-43-8943Kmalyadf (S) [Mass/Vol]2.9 g/dLLicking Memorial Hospital Glucose [Mass/volume] in Serum or PlasmaOrdered By: Caron Ribeior on 11-18-2022 Glucose [Mass/Vol]160 mg/zK72-287RcxeseqidLicking Memorial HospitalComment on above:ADA recommended reference rangeRandom Glucose Reference Range is dependent on time and content of last meal. Glucose of more than 200 mg/dL in a nonstressed, ambulatory subject supports the diagnosisof Diabetes Mellitus.HCG ( test) IA.rapid Ql (U)Ordered By: Caron Ribeiro on 42-38-9566LRU ( test) Ql (U)NegativeLicking Memorial HospitalHCG,Urineon 38-35-7676Iuzi HCG ( test) Ql (U)NegativeNormalLicking Memorial HospitalComment on above:Order Comment: Name Collection Type:: Patricia CatheterResult Comment: PERFORMED BY: [facility] [address] [place] [address] PATHOLOGIST SENIOR SOLUTIONS CONSULTANT ELDER HUFF M.D.Performed By: #### URDS, CG, UA #### [place] [address] USAHematocrit Auto (Bld) [Volume fraction]Ordered By: Caron Ribeiro on 95-87-3619Rlbrzltxqo (Bld) [Volume fraction]38.0 %34.0-46.4FTrinity Health System West CampusHemoglobin [Mass/volume] in BloodOrdered By: Caron Ribeiro on 09-22-2376Slnflyrthq (Bld) [Mass/Vol]12.9 g/dL11.8-15.4FTrinity Health System West CampusKetones Auto test strip (U) [Mass/Vol]Ordered By: Caron Ribeiro on 72-94-4292Cpgdyxz (U) [Mass/Vol]NegativeNegativeLicking Memorial HospitalLaboratory - Chemistry and Chemistry - challengeOrdered By: Caron Ribeiro on 81-54-0769EHE/1.73 sq M.predicted MDRD (S/P/Bld) [Vol rate/Area] mL/min/{1.73_m2}[facility] HospitalLaboratory - CoagulationOrdered By: Caron Ribeiro on 87-41-7678ZM Coag (PPP) [Time]10.9 s9.0-12.9L[facility] HospitalLeukocytes [#/volume] corrected for nucleated erythrocytes in Blood by Automated counOrdered By: Caron Ribeiro on 11-18-2022 WBC corrected for nucl RBC Auto (Bld) [#/Vol]8.9 10*3/uL3.8-11.6FTrinity Health System West CampusLymphocytes Auto (Bld) [#/Vol]Ordered By: Caron Ribeiro on 25-65-9644Wgucozvmjyo (Bld) [#/Vol]2.7 10*3/uL1.00-4.8L[facility] HospitalLymphocytes/100 WBC Auto (Bld)Ordered By: Caron Ribeiro on 10-36-9973Ittibpjtvtg/100 WBC (Bld)29.8 %.[facility] Auto (RBC) [Entitic mass]Ordered By: Caron Ribeiro on 85-03-0645MAR (RBC) [Entitic mass]30.8 pg24.7-34.3FTrinity Health System West CampusMCHC Auto (RBC) [Mass/Vol]Ordered By: Caron Ribeiro on 73-65-2348IKQI (RBC) [Mass/Vol]34.0 g/dL 32.0-35.0L[facility] HospitalMCV Auto (RBC) [Entitic vol]Ordered By: Caron Ribeiro on 28-12-8434BKG (RBC) [Entitic vol]90.6 uU28-183FtvfxcxrdLicking Memorial HospitalMonocyte distribution width [Entitic volume] in Blood by AutomatedOrdered By: Caron Ribeiro on 39-20-3933Dpzlernu distribution width Auto (Bld) [Entitic vol]17.76 %0.00-20.00L[facility] HospitalMonocytes Auto (Bld) [#/Vol]Ordered By: Caron Ribeiro on 90-87-6662Ksggcllfb (Bld) [#/Vol] 0.5 10*3/uL0.0-0.8[facility] HospitalMonocytes/100 WBC Auto (Bld) Ordered By: Caron Ribeiro on 41-46-2170Rmiojssxa/100 WBC (Bld)5.1 %.[facility] Memorial HospitalNeutrophils Auto (Bld) [#/Vol]Ordered By: Caron Ribeiro on 15-67-9063Ybwseqzzbau (Bld) [#/Vol]5.7 10*3/uL1.8-7.7FTrinity Health System West CampusNeutrophils/100 WBC Auto (Bld)Ordered By: Caron Ribeiro on 34-92-5427Fwcheqctptg/100 WBC (Bld)63.9 %.[facility] Nitrite Test strip Ql (U)Ordered By: Caron Ribeiro on 08-18-1733Zbhoatt Ql (U) NegativeNegMercy Health Fairfield HospitalNo Panel InformationOrdered By: Caron Ribeiro on 82-57-3223Towaylxt Creatinine Clearance (Xvya197.65L[facility] HospitalNucleated erythrocytes [Presence] in Blood by Automated countOrdered By: Caron Ribeiro on 70-64-3264Rynwzrjrt RBC Auto Ql (Bld)0.1 /100{WBC}0-0.5FTrinity Health System West CampusOpiates [Presence] in Urine by Screen methodOrdered By: Caron Ribeiro on 06-06-8798Fmftwye Screen Ql (U) NegativeNegMercy Health Fairfield HospitalPartial Thromboplastin Timeon 98-80-7334cZDW Coag (Bld) [Time]25.0 sLow25.1-36.5FTrinity Health System West CampusComment on above:Result Comment: PERFORMED BY: [place] [address] PATHOLOGIST SENIOR SOLUTIONS CONSULTANT ELDER HUFF M.D.Performed By: #### HS TROP, CBC, CMP, CK #### [place] [address] USAPhencyclidine Screen Ql (U)Ordered By: Caron Ribeiro on 80-47-6837Igrxclgayoddc Ql (U)NegativeNegMercy Health Fairfield Hospital Platelet mean volume Auto (Bld) [Entitic vol]Ordered By: Caron Ribeiro on 03-09-5416Birtylhb mean volume (Bld) [Entitic vol]6.9 fL6.3-10.7FTrinity Health System West CampusPlatelet poor plasma international normalized ratio (INR) by coagulation assay (relatOrdered By: Caron Ribeiro on 87-47-5535QBC Coag (PPP) [Relative time]0.9 {INR}[facility] HospitalComment on above:INR Therapeutic Range A) Pre- and Peroperative OAT started two weeks before surgery. NOT HIP SURGERY: 1.5 - 2.5 HIP SURGERY: 2 - 3B) Primary and secondary prevention of venous THROMBOSIS: 2 - 3C) Active venous thrombosis, pulmonary embolismand prevention of recurrent venous thrombosis: 2 - 3D) Prevention of arterial thromboembolismincluding patients with mechanical heart valves: 3 - 4.5Platelets Auto (Bld) [#/Vol]Ordered By: Caron Ribeiro on 90-25-9378Yqkkwsfkr (Bld) [#/Vol] 277 10*3/yF046-287OkgrlwflqLicking Memorial HospitalPotassium [Moles/volume] in Serum or PlasmaOrdered By: Caron Ribeiro on 91-72-9883Mmqcpkfmc [Moles/Vol]3.2 mmol/L3.5-5.1FTrinity Health System West CampusProtein Auto test strip (U) [Mass/Vol]Ordered By: Caron Ribeiro on 56-33-1221Gkwzpju (U) [Mass/Vol]Negative NegativeLicking Memorial HospitalProtein [Mass/volume] in Serum or PlasmaOrdered By: Caron Ribeiro on 49-45-8587Gtaumoq [Mass/Vol]7.7 g/dL6.4-8.9 [facility] HospitalProthrombin Time INRon 69-92-4782EGP Coag (PPP) [Relative time]0.9 {INR}NormalLicking Memorial HospitalComment on above:Result Comment: INR Therapeutic Range A) Pre- and Peroperative OAT started two weeks before surgery. NOT HIP SURGERY: 1.5 - 2.5 HIP SURGERY: 2 - 3 B) Primary and secondary prevention of venous THROMBOSIS: 2 - 3 C) Active venous thrombosis, pulmonary embolism and prevention of recurrent venous thrombosis: 2 - 3 D) Prevention of arterial thromboembolism including patients with mechanical heart valves: 3 - 4.5Performed By: #### HS TROP, CBC, CMP, CK #### [facility] [address] [place] [address] USAPT Coag (PPP) [Time]10.9 sNormal9.0-12.9[facility] HospitalComment on above:Performed By: #### HS TROP, CBC, CMP, CK #### [facility] [address] [place] [address] USARBC Auto (Bld) [#/Vol]Ordered By: Caron Ribeiro on 05-83-1274JNP (Bld) [#/Vol]4.20 10*6/uL3.60-5.00ProMedica Flower Hospitalerum or plasma albumin/globulin mass ratioOrdered By: Caron Ribeiro on 03-14-6386Qndkkyt/Globulin [Mass ratio]1.7 {ratio}[facility] Flower Hospitalerum or plasma anion gap determinationOrdered By: Caron Ribeiro on 26-53-6022Fmqff gap [Moles/Vol]18.9 mmol/L6.0-15.0ProMedica Flower Hospitalodium [Moles/volume] in Serum or PlasmaOrdered By: Caron Ribeiro on 89-89-1559Luzntw [Moles/Vol]140 mmol/C743-644VxlzmsjvfLicking Memorial Hospital Specific gravity Auto test strip (U) [Rel density]Ordered By: Caron Ribeiro on 73-66-6607Xxryxylt gravity (U) [Rel density]1.0061.001-1.030L[facility] HospitalTroponin I High Sensitivityon 55-95-4445Jdfavhqb I High Sensitivity2.6 pg/mLNormal0.0-15.0[facility] HospitalComment on above:Result Comment: PERFORMED BY: [place] [address] PATHOLOGIST S[employer]IOR [employer]UTIONS CONSULTANT ELDER HUFF M.D.Performed By: #### HS TROP, CBC, CMP, CK #### [facility] [address] [place] [address] USATroponin I.cardiac [Mass/volume] in Serum or Plasma by Detection limit <= 0.01 ng/Ordered By: Caron Ribeiro on 21-51-8586Flbsqdqo I.cardiac DL <= 0.01 ng/mL [Mass/Vol]2.6 pg/mL0.0-15.0[facility] HospitalUrea nitrogen [Mass/volume] in Serum or PlasmaOrdered By: Caron Ribeiro on 24-70-4083Vnzj nitrogen [Mass/Vol]19 mg/dL7-25L[facility] Memorial HospitalUrinalysison 45-11-8479Rkajijnqaa (U)ClearNormalClearLicking Memorial HospitalComment on above:Order Comment: Name Collection Type:: Patricia CatheterPerformed By: #### URDS, UHCG, UA #### [facility] [address] [place] [address] USABilirubin,UrineNegativeNormalNegativeLicking Memorial HospitalComment on above:Order Comment: Name Collection Type:: Patricia CatheterPerformed By: #### URDS, UHCG, UA #### [facility] [address] [place] [id number] USAColor (U)YellowNormalYellowLicking Memorial HospitalComment on above:Order Comment: Name Collection Type:: Patricia Catheter Performed By: #### URDS, UHCG, UA #### [facility] [address] [place], [place] [id number] USAGlucose Ql (U)NormalNormalNormMercy Health West HospitalComment on above:Order Comment: Name Collection Type:: Patricia Catheter Performed By: #### URDS, UHCG, UA #### [facility] [address] [place] [address] USAKetones Ql (U)NegativeNormalNegMercy Health Fairfield HospitalComment on above:Order Comment: Name Collection Type:: Patricia CatheterPerformed By: #### URDS, UHCG, UA #### [facility] [address] [place] [address] USALeukocyte esterase Test strip Ql (U)NegativeNormalChildren'S Hospital For RehabilitationComment on above:Order Comment: Name Collection Type:: Patricia CatheterPerformed By: #### URDS, UHCG, UA #### [facility] [address] [place], [place] [id number] USANitrite,UrineNegativeNormalNegativeLicking Memorial HospitalComment on above:Order Comment: Name Collection Type:: Patricia CatheterPerformed By: #### URDS, UHCG, UA #### [facility] [address] [place], [place] [id number] USAOccult Blood,UrineNegativeNormalNegMercy Health Fairfield HospitalComment on above:Order Comment: Name Collection Type:: Patricia CatheterPerformed By: #### URDS, UHCG, UA #### [facility] [address] [place] [address] USApH (U)5.5 [pH]Normal5.0-9.0[facility] HospitalComment on above:Order Comment: Name Collection Type:: Patricia Catheter Performed By: #### URDS, UHCG, UA #### [facility] [address] [place] [address] USAProtein,UrineNegativeNormalNegativeLicking Memorial HospitalComment on above:Order Comment: Name Collection Type:: Patricia CatheterPerformed By: #### URDS, UHCG, UA #### [facility] [address] [place] [address] USASpecificy [place],Urine1.937Dcjbrj8.001-1.030Licking Memorial HospitalComment on above:Order Comment: Name Collection Type:: Patricia CatheterPerformed By: #### URDS, UHCG, UA #### [facility] [address] [id number] USAUrobilinogen,UrineNormalNormalNormalLicking Memorial HospitalComment on above:Order Comment: Name Collection Type:: Patricia CatheterPerformed By: #### URDS, UHCG, UA #### [facility] [address] [place] [address] USAUrine clarity by refractometry automatedOrdered By: Caron Ribeiro on 56-28-6167Fiadcsi Refractometry automated (U)ClearCleNationwide Children's HospitalUrine glucose measurement by automated test strip (mass/volume)Ordered By: Caron Ribeiro on 96-91-7350Oszcfjg Auto test strip (U) [Mass/Vol]Normal mg/dLNoMercy Health Clermont HospitalUrine hemoglobin detection by automated test stripOrdered By: Caron Ribeiro on 11-18-2022 Hemoglobin Auto test strip Ql (U)NegativeNegativeLicking Memorial HospitalUrine leukocyte esterase detection by automated test stripOrdered By: Caron Ribeiro on 22-23-0061Pwfhwcyyd esterase Auto test strip Ql (U)Negative NegativeLicking Memorial HospitalUrobilinogen Auto test strip (U) [Mass/Vol]Ordered By: Caron Ribeiro on 01-42-0233Svsfymswgmnr (U) [Mass/Vol] Normal mg/dLNoMercy Health Clermont HospitalWBC Auto (Bld) [#/Vol]Ordered By: Caron Ribeiro on 47-02-6727DKF (Bld) [#/Vol]8.9 10*3/uL3.8-11.6FTrinity Health System West CampusXR chest 1V portableon 22-08-1162ZI chest 1V portable [facility] [place] [address] XRay Report Signed Patient: Tristen Mccracken MR#: [id number] 0 : 1995 Acct:[id number] Age/Sex: 27 / F ADM Date: 11/18/22 Loc: ER Room: Type: [facility] ER Attending Dr: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 week for routine OB appointment. Documented by JORGE Patrick on behalf of: JORGE Patrick documented in this encounterLafayette Regional Health [id number] History of Present illness Narrative* JORGE Patrick - 04/22/2025 3:50 PM EDT [...] Vitals: Estimated body mass index is 29.39 kg/m as calculated from the following: Height as of 02/18/25: 5' 5 . Weight as of this encounter: 176 lb 9.6 oz. BP: 112/68 Patient's last menstrual period was 10/17/2024. ASSESSMENT & PLAN ICD-10-CM 1. Second trimester ([facility]) Z34.92 POCT urinalysis dipstick manually resulted 2. 24 weeks gestation of ([facility]) Z3A.24 POCT urinalysis dipstick manually resulted 3. [...] behalf of: JORGE Patrick documented in this encounterLafayette Regional Health [id number] History of Present illness Narrative* Mervat Hall, CHRISTIE - 03/23/2025 9:40 AM EDT Reason for Appointment: Patient ID: Tristen Mccracken is a 29 y.o. female who presents for Routine Visit Patient presents today for Return OB appointment. MEDICATIONS Current Outpatient Medications Medication Instructions MV-Min-Fe Fum-FA-DHA ( 1 PO) 1 tablet, [...] Negative. Musculoskeletal: Negative. Skin: Negative. Neurological: Negative. Psychiatric/Behavioral: Negative. All other systems reviewed and are [...] nursing note reviewed. Exam conducted with a lidding machine operator present. Vitals: Estimated body mass index is 28.76 kg/m as calculated from the following: Height as of 02/18/25: 5' 5 . Weight as of this encounter: 172 lb 12.8 oz. BP: 118/70 Patient's last menstrual period was 10/17/2024. ASSESSMENT & PLAN ICD-10-CM 1. 20 weeks gestation of ([facility]) Z3A.20 POCT urinalysis dipstick manually resulted 2. Second trimester ([facility]) Z34.92 POCT urinalysis dipstick manually resulted Return OB: Patient presents today for a routine obstetrics appointment. Patient is currently 20w0d . Patient states she is doing well [...] by Mervat Hall NP on behalf of: Gilmer Mohamud DO documented in this encounterLafayette Regional Health [id number] History of Present illness Narrative* JORGE Patrick - 02/18/2025 9:30 AM EDT Reason for Appointment: Patient ID: Tristen Mccracken is a 29 y.o. female who presents for Routine Visit Patient presents today for Return OB appointment. MEDICATIONS Current Outpatient Medications Medication Instructions MV-Min-Fe Fum-FA-DHA ( 1 PO) 1 tablet, [...] History: Procedure Laterality Date VAGINAL DELIVERY x2 2014&2018 REVIEW OF SYSTEMS Review of Systems: Review of Systems All other systems reviewed and are negative. OBJECTIVE Objective: Physical Exam Constitutional: Appearance: Normal appearance. She is well-developed. Genitourinary: Vulva normal. Cardiovascular: Rate and Rhythm: Normal rate and [...] nursing note reviewed. Exam conducted with a lidding machine operator present. Vitals: Estimated body mass index is 28.12 kg/m as calculated from the following: Height as of this encounter: 5' 5 . Weight as of this encounter: 169 lb. BP: 118/72 Patient's last menstrual period was 10/17/2024. ASSESSMENT & PLAN ICD-10-CM 1. Well woman exam with routine gynecological exam Z01.419 Pap Smear 2. Exposure to STD Z20.2 SURESWAB(R) ADVANCED VAGINITIS PLUS, TMA CHLAMYDIA TRACHOMATIS (GENITO/STI) Neisseria gonorrhea DNA probe, direct 3. Need for maternal serum alpha-protein (MSAFP) screening ([facility]) Z36.1 Alpha fetoprotein, maternal Alpha fetoprotein, maternal 4. Second trimester ([facility]) Z34.92 POCT urinalysis dipstick manually resulted 5. 15 weeks gestation of ([facility]) Z3A.15 6. Screening, , for anatomic survey ([facility]) Z36.89 OB 14+ weeks anatomy scan Return OB/Annual Exam: Patient presents today for an annual exam/routine obstetrics appointment. Patient is currently 15w2d . Patient is doing well and states she has no complaints. Pap/cultures was obtained without difficulty and patient was given msAFP/Anatomy US orders to have obtained. Orders Placed This Encounter Procedures US OB 14+ weeks anatomy scan CHLAMYDIA TRACHOMATIS (GENITO/STI) Neisseria gonorrhea DNA probe, direct Alpha fetoprotein, maternal POCT urinalysis dipstick manually resulted Follow Up: Patient is to return to our office in 4 weeks for routine OB appointment Documented by Jacqui Saleem MA on behalf of: JORGE Patrick * JORGE Patrick - 02/18/2025 9:30 AM EDT Reason for Appointment: Patient ID: Tristen Mccracken is a 29 y.o. female who presents for Routine Visit Patient presents today for Annual Exam. and Return OB appointment. MEDICATIONS Current Outpatient Medications Medication Instructions MV-Min-Fe Fum-FA-DHA ( 1 PO) 1 tablet, [...] History: Procedure Laterality Date VAGINAL DELIVERY x2 2014&2018 REVIEW OF SYSTEMS Review of Systems: Review of Systems Constitutional: Negative. HENT: Negative. Eyes: Negative. Respiratory: Negative. Cardiovascular: Negative. Gastrointestinal: Negative. Genitourinary: Negative. Musculoskeletal: Negative. Skin: Negative. Neurological: Negative. All other systems reviewed and are negative. Hematological: Negative. Endocrine: Negative. Allergic/Immunologic: Negative. OBJECTIVE Objective: Physical Exam Constitutional: Appearance: Normal appearance. She is well-developed. Genitourinary: Vulva normal. Right Adnexa: not tender and no mass present. Left Adnexa: not tender and no mass present. No cervical discharge. HENT: Head: Normocephalic. Nose: Nose normal. Mouth/Throat: Mouth: Mucous membranes are moist. Cardiovascular: Rate and Rhythm: Normal rate and regular rhythm. Pulmonary: Effort: Pulmonary effort is normal. Breath sounds: Normal breath sounds. Abdominal: General: Bowel sounds are normal. There is no distension. Palpations: Abdomen is soft. Tenderness: There is no abdominal tenderness. There is no guarding or rebound. Musculoskeletal: General: No swelling. Normal range of motion. Cervical back: Normal range of motion. Right lower leg: No edema. Left lower leg: No edema. Neurological: General: No focal deficit present. Mental Status: She is alert and oriented to person, place, and time. Skin: General: Skin is warm and dry. Psychiatric: Mood and Affect: Mood normal. Behavior: Behavior normal. Vitals and nursing note reviewed. Exam conducted with a lidding machine operator present. Vitals: Estimated body mass index is 28.12 kg/m as calculated from the following: Height as of this encounter: 5' 5 . Weight as of this encounter: 169 lb. BP: 118/72 Patient's last menstrual period was 10/17/2024. ASSESSMENT & PLAN ICD-10-CM 1. Well woman exam with routine gynecological exam Z01.419 Pap Smear 2. Exposure to STD Z20.2 SURESWAB(R) ADVANCED VAGINITIS PLUS, TMA CHLAMYDIA TRACHOMATIS (GENITO/STI) Neisseria gonorrhea DNA probe, direct 3. Need for maternal serum alpha-protein (MSAFP) screening ([facility]) Z36.1 Alpha fetoprotein, maternal Alpha fetoprotein, maternal 4. Second trimester ([facility]) Z34.92 POCT urinalysis dipstick manually resulted 5. 15 weeks gestation of ([facility]) Z3A.15 6. Screening, , for anatomic survey ([facility]) Z36.89 US OB 14+ weeks anatomy scan Return OB/Annual Exam: Patient presents today for a annual exam/routine obstetrics appointment. Patient is currently [id number]. Patient states she is doing well but has complaints of nausea in the morning. Pap and cultures was obtained without difficulty and patient was given orders for anatomy scan and msAFP to be obtained. Orders Placed This Encounter Procedures US OB 14+ weeks anatomy scan CHLAMYDIA TRACHOMATIS (GENITO/STI) Neisseria gonorrhea DNA probe, direct Alpha fetoprotein, maternal POCT urinalysis dipstick manually resulted Follow Up: Patient is to schedule annual exam for next year and return to office in 4 weeks for OB appointment. Return OB: Documented by Mervat Hall NP on behalf of: JORGE Patrick documented in this encounterLafayette Regional Health [id number] History of Present illness Narrative* Esther Leo, POWDER EXPERT - 01/28/2025 11:20 AM EDT Reason for Appointment: Patient ID: Tristen Mccracken is a 29 y.o. female who presents for Routine Visit Patient presents today for Return OB appointment. MEDICATIONS Current Outpatient Medications Medication Instructions MV-Min-Fe Fum-FA-DHA ( 1 PO) 1 tablet, [...] History: Procedure Laterality Date VAGINAL DELIVERY x2 2014&2018 REVIEW OF SYSTEMS Review of Systems: Review [...] nursing note reviewed. Exam conducted with a lidding machine operator present. Vitals: There is no height or weight on file to calculate BMI. BP: 120/70 Patient's last menstrual period was 10/17/2024. ASSESSMENT & PLAN ICD-10-CM 1. First trimester Z34.91 POCT urinalysis dipstick manually resulted 2. 12 weeks gestation of Z3A.12 New OB: Patient presents today for 1st time obstetrics appointment with provider. Patient is currently 12w2d . Patients history has been reviewed in great detail including any potential risks. Patient stated she currently has no complaints. Expectations throughout regarding labs, ultrasounds, and appointments have been discussed with the patient in detail. It was reiterated that the patient is to drink 6-8 glasses of water a day, eat 6 small meals a day, do not consume raw or undercooked meat, and stay away from [facility]. Patient has been consulted regarding any further do's and don'tsof . Patient voiced understanding and all questions and concerns were answered. Orders Placed This Encounter Procedures POCT urinalysis dipstick manually resulted Follow Up: Patient is to return in 4 weeks for routine OB appointment. Documented by Esther Leo LPN on behalf of: Gilmer Mohamud DO documented in this encounterLafayette Regional Health [id number] History of Present illness Narrative* Isabel Adair LPN - 01/09/2025 10:00 AM EDT Reason for Appointment: Patient ID: Tristen Mccracken is a 29 y.o. female who presents for Amenorrhea Patient presents today for a Nurse OB Intake appointment. Patient is 9w4d with a Estimated Date of Delivery: 08/10/25 OB History Para Term AB Living 3 1 1 2 SAB IAB Ectopic Multiple Live Births 2 # Outcome Date GA Lbr Thai/2nd Weight Sex Type Anes PTL Lv 3 Current 2 01/08/18 7 lb 4 oz M Vag-Spont JAVIER 1 Term 01/21/15 6 lb 4 oz Vag-Spont JAVIER Current Medications: has a current medication list which includes the following prescription(s): mv-min-fe fum-fa-dha. Medical History: Active Ambulatory Problems Diagnosis Date Noted Irregular bleeding 03/20/2023 Resolved Ambulatory Problems Diagnosis Date Noted No Resolved Ambulatory Problems No Additional Past Medical History No family history on file. Social History Tobacco Use Smoking status: Not on file Smokeless tobacco: Not on file Substance Use Topics Alcohol use: Not on file Drug use: Not on file History reviewed. No pertinent surgical history. No Known Allergies Vitals: There is no height or weight on file to calculate BMI. BP: Patient's last menstrual period was 10/17/2024. Assessment/Plan Diagnoses and all orders for this visit: Missed menses - US OB transvaginal; Future - Type and screen; Future - ABO/Rh; Future - CBC and differential - Hemoglobin A1c - RPR - Rubella antibody, IgG - Hepatitis B surface antigen - Hepatitis C antibody - HIV-1 and HIV-2 antibodies - Urine culture - POCT , urine manually resulted - POCT urinalysis dipstick manually resulted , unspecified gestational age - Type and screen; Future - ABO/Rh; Future - CBC and differential - Hemoglobin A1c - RPR - Rubella antibody, IgG - Hepatitis B surface antigen - Hepatitis C antibody - HIV-1 and HIV-2 antibodies - Rapid drug screen, urine; Future Encounter for supervision of normal first in first trimester - Rapid drug screen, urine; Future Nurse Note: OB Intake: Patient presents today for first OB visit. Patients history has been reviewed in great detail including any potential risks. Patient signed consent forms and patient desires testing in both trimesters. Patient currently has no complaints and has been advised to drink 6-8 glasses of water a day, eatno raw or undercooked meat, and stay away from [facility]. Patient has also been advised to not change litter boxes and eat 6 small meals a day. Patient has been consulted regarding the do's and don'ts ofpregnancy. Patient was given labs and all questions and concerns were answered. Follow Up: Patient is to return in 4 weeks for routine OB appointment. Follow Up: Patient is to have labs drawn at directed and return to office for initial OB appointment with provider. Patient may call office as needed with any concerns or questions. Nurse Visit Completed by: Isabel Adair LPN documented in this encounterLafayette Regional Health [id number] History of Present illness Narrative* Mitali Tavares, POWDER EXPERT - 09/11/2024 11:30 AM ESTAssociated Order(s): IUD Removal Post-Procedure Diagnose(s): Encounter for IUD removal Reason for Appointment: Patient ID: Tristen Mccracken is a 29 y.o. female who presents for Contraception (Mirena removal) Patient presents today for a IUD Removal appointment. MEDICATIONS No current outpatient medications ALLERGIES No Known Allergies SURGICAL HISTORY History reviewed. No pertinent surgical history. REVIEW OF SYSTEMS Review of Systems: Review of Systems All other systems reviewed and are negative. OBJECTIVE Objective: Physical Exam Constitutional: Appearance: Normal appearance. She is well-developed. Genitourinary: Vulva normal. Cardiovascular: Rate and Rhythm: Normal rate and [...] nursing note reviewed. Exam conducted with a lidding machine operator present. Vitals: There is no height or weight on file to calculate BMI. BP: 120/70 No LMP recorded. ASSESSMENT & PLAN Assessment/Plan Encounter Diagnosis: ICD-10-CM 1. Encounter for IUD removal Z30.432 IUD Removal Date/Time: 09/15/2024 10:42 AM Performed by: Gilmer Mohamud DO Authorized by: Gilmer Mohamud DO Consent: Consent obtained: Written Consent given by: Patient Procedure risks and benefits discussed: yes Patient questions answered: yes Patient agrees, verbalizes understanding, and wants to proceed: yes Educational handouts given: no Instructions and paperwork completed: yes Procedure: Removed with no complications: yes Removal due to mechanical complications of IUD: no Removal due to infection and inflammatory reaction: no IUD Removal: Patient presents today for removal of IUD. Written consent was obtained and patient was placed in dorsal lithotomy position with feet in stirrups. A sterile speculum was inserted into the vagina and the cervix was visualized. The IUD strings were grasped gently with forceps and the IUD was removed in its entirety without difficulty. The IUD was shown to the patient then properly discarded. Follow Up: Patient is to return to the office for annual exam unless needed otherwise Documented by Mitali Tavares LPN on behalf of: Gilmer Mohamud DO documented in this encounterNOWV HealthcareEvaluation noteNo assessment information availableOhio State East Hospital Ctr Work Phone: Evaluation note* Diagnosis Encounter for IUD removal documented in this encounter [facility]* Diagnosis Missed menses , unspecified gestational age Encounter for supervision of normal first in first trimester documented in this encounter [facility]* Diagnosis First trimester state, incidental 12 weeks gestation of documented in this encounter [facility]* Diagnosis Well woman exam with routine gynecological exam Routine gynecological examination Exposure to STD Need for maternal serum alpha-protein (MSAFP) screening ([facility]) Second trimester ([facility]) state, incidental 15 weeks gestation of ([facility]) Screening, , for anatomic survey ([facility]) Encounter for anatomic survey documented in this encounter [facility] note* Diagnosis 20 weeks gestation of ([facility]) Second trimester ([facility]) state, incidental documented in this encounter [facility]* Diagnosis Second trimester ([facility]) state, incidental 24 weeks gestation of ([facility]) Diabetes mellitus screening Screening for diabetes mellitus Restless leg Restless legs syndrome (RLS) documented in this encounter [facility]* Diagnosis Third trimester ([facility]) state, incidental 28 weeks gestation of ([facility]) documented in this encounter [facility]* Diagnosis size inconsistent with dates ([facility])- Primary 31 weeks gestation of ([facility]) Third trimester ([facility]) state, incidental documented in this encounter [facility]* Diagnosis Third trimester ([facility]) state, incidental 33 weeks gestation of ([facility]) documented in this encounter [facility] Discharge instructions Additional Instructions It appears that you were fairly intoxicated on alcohol. I cannot entirely rule out someone putting something in your drink, but nothing showed up on the tests. Many of these agents will not show up on routine drug tests, however. We are happy to see you if you have any further problems or concerns.[facility] Work Phone: Summary Purpose Family History No Family History Records FoundNo Family History Records FoundNo Family History Records Found Advance Directives No Advanced Directives Records Found Advance Directive Response Recorded Date/ Time Advance Directives No November 18, 023 1:04am Chief Complaint and Reason for Visit Chief Complaint AMS Additional Source Comments INFORMATION SOURCE (unrecogn ized section and content) DATE CREATED AUTHOR 08/05/2020 [facility] DATE CREATED AUTHOR AUTHOR'S ORGANIZ ATION 11/29/2022 [facility] DATE CREATED AUTHOR AUTHOR'S ORGANIZ ATION 06/24/2025 [facility] EPIC Care Teams (unrecognized sec tion and content) Team Status: Active Member Role Status Dates Jef Ramirez DO Primary Care Provider Active Team Status: Inactive Member Role Status Dates Caron Ribeiro Jr, MD Emergency Provider Active Loly Serrano Care ProviderActiveTeam MemberRelationshipSpecialtyStart DateEnd Date Jef Ramirez MD [address] [place] [address] PCP - General09/11/24Team MemberRelationshipSpecialtyStart DateEnd Date Jef Ramirez DO [address] [place] [address] PCP - General09/11/24Team MemberRelationshipSpecialtyStart DateEnd Date Jef Ramirez DO [address] [place] [address] PCP - General09/11/24Team MemberRelationshipSpecialtyStart DateEnd Date Jef Ramirez, DO [address] [facility] [address] PCP - General09/11/24Team MemberRelationshipSpecialtyStart DateEnd Date Jef Ramirez, DO [address] [facility] [address] PCP - General09/11/24Team MemberRelationshipSpecialtyStart DateEnd Date Jef Ramirez, DO [address] [facility] [address] PCP - General09/11/24Team MemberRelationshipSpecialtyStart DateEnd Date Jef Ramirez, DO [address] [facility] [place] [address] PCP - General09/11/24Team MemberRelationshipSpecialtyStart DateEnd Date Jef Ramirez, DO [address] [facility] [address] PCP - General09/11/24Team MemberRelationshipSpecialtyStart DateEnd Date Jef Ramirez, DO [address] [facility] [place] [address] PCP - General09/11/24Team MemberRelationshipSpecialtyStart DateEnd Date Jef Ramirez, DO [address] [facility] [place] [address] PCP - General09/11/24Team MemberRelationshipSpecialtyStart DateEnd Date Jef Ramirez, DO [address] [facility] [place] [address] PCP - General09/11/24Team MemberRelationshipSpecialtyStart DateEnd Date Jef Ramirez, DO [address] [facility] [address] PCP - General09/11/24Team MemberRelationshipSpecialtyStart DateEnd Date Jef Ramirez, DO [address] [facility] [address] PCP - General09/11/24 Goals (unrecognized section and content) Goals may be documented in a n alternate section Reason for Visit (unrecogniz ed section and content) ReasonCommentsContraceptionMirena removalReasonCommentsAmenorrheaReasonComments Routine VisitReasonCommentsRoutine Visit31 weeks FOR RECORDS PERTAINING TO PATIENTS WHO ARE OR HAVE BEEN ENROLLED IN A CHEMICAL DEPENDENCY/SUBSTANCEABUSE PROGRAM, SOME INFORMATION MAY BE OMITTED. This clinical summary was aggregated from multiple sources. Caution should be exercised in using it in the provision of clinical care. This summary normalizes information from multiple sources, and as a consequence, information in this document may materially change the coding, format and clinical context of patient data. In addition, data may be omitted in some cases. CLINICAL DECISIONS SHOULD BE BASED ON THE PRIMARY CLINICAL RECORDS. [facility] [employer] provides no warranty or guarantee of the accuracy or completeness of information in this document.
== END 2025-07-06 13:02 | disposition home or self-care (01) ==
PROVIDERS: Admitting Provider Obstetrics & Gynecology; PCP Family Medicine; Visit Provider Obstetrics & Gynecology
DX: O99.891 Other specified diseases and conditions complicating pregnancy (principal); R10.30 Lower abdominal pain, unspecified; Z3A.35 35 weeks gestation of pregnancy
CPT/HCPCS: 59025; 81003; 84112; G0378; G0379

== ENCOUNTER 2025-07-15 14:21 | Outpatient (REF) | payer MEDICAID, SELFPAY ==
--- OUTSIDE RECORDS SUMMARY | 2025-07-08 11:20 | XMS_ITS | Encounter Summary ---
Author Organization [facility] Address [address] [place] [address] Care Team Providers Care Crewman Main Battle Tank Name Role Phone Jef Ramirez Primary Care Provider [phone] Reason for Visit * ReasonCommentsRoutine Visit Encounter Details DateTypeDepartmentCare Team (Latest Contact Info)Afvoucreqbc29/05/2025 11:20 AM ESTRoutine [facility] [address] [phone] Harjeet Mohamud DO [address] [place] [address] Third trimester ([facility]); 35 weeks gestation of ([facility]) Social History Tobacco UseTypesPacks/DayYears UsedDateSmoking Tobacco: Never AssessedPHQ-2 AnswerDate RecordedPatient Health Questionnaire-2 Erppq713 Estimated Date of KyntwvefYduyhwojUkm58/08/2025Based on UltrasoundSex and Gender InformationValueDate RecordedSex Assigned at BirthNot on fileLegal SexFemale 11/15/2022 6:46 PM EDTGender IdentityNot on fileSexual OrientationNot on file documented as of this encounter Last Filed Vital Signs Vital SignReadingTime TakenCommentsBlood Nskqekwh643/7007/08/2025 11:43 AM EST Pulse--Temperature--Respiratory Rate--Oxygen Saturation--Inhaled Oxygen Concentration--Zvhzpj02.9 kg (193 lb 12.8 oz)07/08/2025 11:43 AM ESTHeight--Body Mass Index32.2506 9:53 AM EDTdocumented in this encounter Progress Notes * Esther Leo, INSURANCE CUSTOMER SERVICE SPECIALIST - 07/08/2025 11:20 AM EST Reason for Appointment: Patient ID: Tristen Mccracken [...] nursing note reviewed. Exam conducted with a maintenance mechanic helper present. Vitals: Estimated body mass index is 32.25 kg/m?? as calculated from the following: Height as of 02/18/25: 5' 5 . Weight as of this encounter: 193 lb 12.8 oz. BP: 108/70 Patient's last menstrual period was 10/17/2024. Assessment/Plan ICD-10-CM 1. Third trimester ([facility]) Z34.93 2. 35 weeks gestation of ([facility]) Z3A.35 POCT urinalysis dipstick manually resulted Return OB: Patient presents today for a routine obstetrics appointment. Patient is currently 35w2d . Patient states she is doing well but has complaints of being tired due to current . Patient has verbalizes frequent movement. labor precautions was discussed/given and patient was instructed to perform kick counts three times a day. Orders Placed This Encounter Procedures POCT urinalysis dipstick manually resulted Follow Up: Patient is to return to office in 1 week for routine OB appointment. Documented by Esther Leo LPN on behalf of: Harjeet Mohamud DO documented in this encounter Plan of Treatment DateTypeDepartmentCare Team (Latest Contact Info)Psuosshslsl05/18/2025 10:30 AM ESTRoutine [facility] [address] [place] [phone] Harjeet Mohamud DO [address] [place] [address] documented as of this encounter Procedures Procedure NamePriorityDate/TimeAssociated DiagnosisCommentsPOCT URINALYSIS WKLQFWZODokrmzs12/05/2025 11:49 AM EST 35 weeks gestation of ([facility]) documented in this encounter Results * POCT urinalysis dipstick manually resulted (07/08/2025 11:49 AM EST)Component ValueRef RangeTest MethodAnalysis TimePerformed AtPathologist SignatureColor, UAYellowClarity, UAClearGlucose, UANegativeNegative - 2000(110) ++++ mg/dL Bilirubin, UANegativeNegative - 4(70) +++ mg/dLKetones, UANegativeNegative - 160(16) ++++ mg/dLSpec Grav, UA1.0151 - 1.03Blood, UANegativeNegative - 50 Hesham/mcLpH, UA6.55 - 9Protein, UANegativeNegative - 2000(20) ++++ mg/dL Urobilinogen, UA1.00.2 - 12 mg/dLLeukocytes, UANegativeNegative - 500+++ Dary/mcLNitrite, UANegativeNegative - PositiveSpecimen (Source)Anatomical Location / LateralityCollection Method / VolumeCollection TimeReceived Time Urine07/08/2025 11:49 AM EST Narrative Authorizing ProviderResult TypeResult StatusCorey Oneida DOPOINT OF CARE TEST ENTER/EDIT ORDERABLESFinal Result documented in this encounter Visit Diagnoses Diagnosis Third trimester ([facility]) state, incidental 35 weeks gestation of ([facility]) documented in this encounter Care Teams Team MemberRelationshipSpecialtyStart DateEnd Date Jef Ramirez DO [address] [place] [address] PCP - General09/11/24documented as of this encounter
--- OUTSIDE RECORDS SUMMARY | 2025-07-15 11:20 | XMS_ITS | Encounter Summary ---
Author Organization [facility] Address [address] [place] [address] Care Team Providers Care School Of Nursing Director Name Role Phone Jef Ramirez DO Primary Care Provider [phone] Reason for Visit * ReasonCommentsRoutine Visit Encounter Details DateTypeDepartmentCare Team (Latest Contact Info)Mkaeoobdnoj06/12/2025 11:20 AM ESTRoutine [facility] [address] [facility] [address] Mervat Hall, CHRISTIE [address] [place] [address] 36 weeks gestation of ([facility]); Third trimester ([facility]); Restless leg Social History Tobacco UseTypesPacks/DayYears UsedDateSmoking Tobacco: Never AssessedPHQ-2 AnswerDate RecordedPatient Health Questionnaire-2 Uvhto315 Estimated Date of NtgnedmtUoohidcdJdh05/08/2025Based on UltrasoundSex and Gender InformationValueDate RecordedSex Assigned at BirthNot on fileLegal SexFemale 11/15/2022 6:46 PM EDTGender IdentityNot on fileSexual OrientationNot on file documented as of this encounter Last Filed Vital Signs Vital SignReadingTime TakenCommentsBlood Uxuuitzo948/80109/14/2024 11:37 AM EST Pulse--Temperature--Respiratory Rate--Oxygen Saturation--Inhaled Oxygen Concentration--Nghiif35.4 kg (192 lb 9.6 oz)07/15/2025 11:37 AM ESTHeight--Body Mass Index32.05002/18/2025 9:53 AM EDTdocumented in this encounter Progress Notes * Mervat Hall NP - 07/15/2025 11:20 AM EST Reason for Appointment: Patient [...] nursing note reviewed. Exam conducted with a production expediter present. Vitals: Estimated body mass index is 32.05 kg/m?? as calculated from the following: Height as of 6/18/25: 5' 5 . Weight as of this encounter: 192 lb 9.6 oz. BP: 130/80 Patient's last menstrual period was 10/17/2024. Assessment/Plan ICD-10-CM 1. 36 weeks gestation of ([facility]) Z3A.36 POCT urinalysis dipstick manually resulted 2. Third trimester ([facility]) Z34.93 POCT urinalysis dipstick manually resulted CULTURE, GROUP B STREP WITH SUSCEPTIBLITY CULTURE, GROUP B STREP WITH SUSCEPTIBLITY 3. Restless leg G25.81 Assessment/Plan Return OB: Patient presents today for a routine obstetrics appointment. Patient is currently 36w2d . Patient states she is doing well but has complaints of being tired due to current . Patient has verbalizes frequent movement. labor precautions was discussed/given and patient was instructed to perform kick counts three times a day. Orders Placed This Encounter Procedures CULTURE, GROUP B STREP WITH SUSCEPTIBLITY POCT urinalysis dipstick manually resulted Follow Up: Patient is to return to office in 1 week for routine OB appointment. Documented by Mervat Hall NP on behalf of: Mervat Hall NP documented in this encounter Plan of Treatment DateTypeDepartmentCare Team (Latest Contact Info)Ubuyjaizkjn31/18/2025 10:30 AM ESTRoutine [facility] [address] [facility] [facility] [place] [address] Harjeet Mohamud DO [address] [place] [address] NameTypePriorityAssociated DiagnosesOrder ScheduleCULTURE, GROUP B STREP WITH SUSCEPTIBLITYLabRoutine Third trimester ([facility]) Expected: 07/15/2025, Expires: 07/15/2026documented as of this encounter Procedures Procedure NamePriorityDate/TimeAssociated DiagnosisCommentsPOCT URINALYSIS FVVDJRBYLhpvytz86/12/2025 11:45 AM EST 36 weeks gestation of ([facility]) Third trimester ([facility]) documented in this encounter Results * POCT urinalysis dipstick manually resulted (07/15/2025 11:45 AM EST)Component ValueRef RangeTest MethodAnalysis TimePerformed AtPathologist SignatureColor, UAYellowClarity, UAClearGlucose, UANegativeNegative - 2000(110) ++++ mg/dL Bilirubin, UANegativeNegative - 4(70) +++ mg/dLKetones, UANegativeNegative - 160(16) ++++ mg/dLSpec Grav, UA1.0101 - 1.03Blood, UANegativeNegative - 50 Hesham/mcLpH, UA6.55 - 9Protein, UANegativeNegative - 2000(20) ++++ mg/dL Urobilinogen, UA1.00.2 - 12 mg/dLLeukocytes, UANegativeNegative - 500+++ Dary/mcLNitrite, UANegativeNegative - PositiveSpecimen (Source)Anatomical Location / LateralityCollection Method / VolumeCollection TimeReceived Time Urine07/15/2025 11:45 AM EST Narrative Authorizing ProviderResult TypeResult StatusKrrolaa Rafael NPPOINT OF CARE TEST ENTER/EDIT ORDERABLESFinal Result documented in this encounter Visit Diagnoses Diagnosis 36 weeks gestation of ([facility]) Third trimester ([facility]) state, incidental Restless leg Restless legs syndrome (RLS) documented in this encounter Care Teams Team MemberRelationshipSpecialtyStart DateEnd Date Jef Ramirez DO [address] [place] [phone] PCP - General09/11/24documented as of this encounter
--- OUTSIDE RECORDS SUMMARY | 2025-07-15 14:26 | XMS_ITS | Encounter Summary ---
Author Organization [facility] Address [address] [place] [address] Care Team Providers Care Obgyn Hospitalist Physician Name Role Phone Jef Ramirez DO Primary Care Provider [phone] Encounter Details DateTypeDepartmentCare Team (Latest Contact Info)Nhkboeueruz56/12/2025Patient Outreach [facility] [address] [place] [address] Josseline Hastings LPN [address] [place] [address] Social History Tobacco UseTypesPacks/DayYears UsedDateSmoking Tobacco: Never AssessedPHQ-2 AnswerDate RecordedPatient Health Questionnaire-2 Nikiv785 Estimated Date of ZfznqaqjIcoqdmbdYpq03/08/2025Based on UltrasoundSex and Gender InformationValueDate RecordedSex Assigned at BirthNot on fileLegal SexFemale 11/15/2022 6:46 PM EDTGender IdentityNot on fileSexual OrientationNot on file documented as of this encounter Progress Notes * Josseline Hastings LPN - 07/15/2025 11:43 AM EST Monthly Outreach. Call to pt. Pt reports she is doing well and denies any questions, concerns, or needs today. Pt currently at OB OV appt. Call was short. documented in this encounter Plan of Treatment DateTypeDepartmentCare Team (Latest Contact Info)Osjtiwqonfs33/18/2025 10:30 AM ESTRoutine [facility] [address] [place] [phone] Harjeet Mohamud DO [address] [facility] [place] [address] documented as of this encounter Visit Diagnoses Not on filedocumented in this encounter Care Teams Team MemberRelationshipSpecialtyStart DateEnd Date Jef Ramirez DO [address] [place] [address] PCP - General09/11/24documented as of this encounter
--- OUTSIDE RECORDS SUMMARY | 2025-07-15 14:26 | XMS_ITS | Encounter Summary ---
Author Organization [facility] Address [address] [place] [address] Care Team Providers Care Roof Promenade Tile Setter Name Role Phone Jef Ramirez Primary Care Provider [phone] Encounter Details DateTypeDepartmentCare Team (Latest Contact Info)Ktcktxwpcod75/03/2025linisync Result Encounter [facility] External Department Unsolicited Harjeet Mohamud, DO [address] [facility] [address] [place], [place] [phone] Social History Tobacco UseTypesPacks/DayYears UsedDateSmoking Tobacco: Never AssessedPHQ-2 AnswerDate RecordedPatient Health Questionnaire-2 Uqcpk809 Estimated Date of XuxyaalkMsnwsufySvo15/08/2025Based on UltrasoundSex and Gender InformationValueDate RecordedSex Assigned at BirthNot on fileLegal SexFemale 11/15/2022 6:46 PM EDTGender IdentityNot on fileSexual OrientationNot on file documented as of this encounter Plan of Treatment DateTypeDepartmentCare Team (Latest Contact Info)Yuzqpdvotth91/18/2025 10:30 AM ESTRoutine [facility] [address] [place] [phone] Harjeet Mohamud, [address] [place], [place] [address] documented as of this encounter Procedures Procedure NamePriorityDate/TimeAssociated DiagnosisCommentsAMNISURERoutine 07/06/2025 12:12 PM EST [facility] UA (CLEAN/CATCH) TOWER OPERATOR/MICRO IF IND.Diocyix8507/06/2025 12:00 PM EST documented in this encounter Results * AMNISURE (07/06/2025 12:12 PM EST)ComponentValueRef RangeTest MethodAnalysis TimePerformed AtPathologist SignatureTBH AMNISURENEGATIVENEGATIVETBHSpecimen (Source)Anatomical Location / LateralityCollection Method / VolumeCollection TimeReceived Time07/06/2025 12:12 PM EST07/06/2025 12:18 PM EST Narrative CLINISYNC - 07/06/2025 12:35 PM EST Authorizing ProviderResult TypeResult StatusCorey Oneida DOLAB BLOOD ORDERABLES Final ResultPerforming OrganizationAddressCity/State/ZIP CodePhone Number [facility] * [facility] UA (CLEAN/CATCH) TOWER OPERATOR/MICRO IF IND. (07/06/2025 12:00 PM EST)ComponentValue Ref RangeTest MethodAnalysis TimePerformed AtPathologist SignatureCOLOR URINE LT. YELLOWYELLOWTBHCLARITY URINECLEARCLEARTBHSPECIFIC GRAVITY URINE1.0201.005 - 1.025TBHPH URINE6.55.0 - 9.0TBHPROTEIN URINENEGATIVENEG/TRACE mg/dLTBH GLUCOSE URINE UANEGATIVENEGATIVE mg/dLTBHBILIRUBIN URINENEGATIVENEGATIVETBH KETONES URINENEGATIVENEGATIVE mg/dLTBHBLOOD URINENEGATIVENEGATIVETBHNITRITE URINENEGATIVENEGATIVETBHUROBILINOGEN URINE1.00.2 - 1.0 EU/dLTBHLEUKOCYTE ESTERASE URINENEGATIVENEGATIVETBHURINE MICROSCOPIC INDICATEDNOTBHSpecimen (Source)Anatomical Location / LateralityCollection Method / VolumeCollection TimeReceived Time07/06/2025 12:00 PM EST07/06/2025 12:05 PM EST Narrative CLINISYNC - 07/06/2025 12:19 PM EST Authorizing ProviderResult TypeResult StatusCorey Oneida DOCLINISYNCFinal Result Performing OrganizationAddressCity/State/ZIP CodePhone Number [facility] documented in this encounter Visit Diagnoses Not on filedocumented in this encounter Care Teams Team MemberRelationshipSpecialtyStart DateEnd Date Jef Ramirez DO [address] [place] [address] PCP - General09/11/24documented as of this encounter
--- OUTSIDE RECORDS SUMMARY | 2025-07-15 14:26 | XMS_ITS | Encounter Summary ---
Author Organization [facility] Address [address] [place] [address] Care Team Providers Care Territory Sales Consultant Name Role Phone Ashley Jef Taylor DO Primary Care Provider [phone] Encounter Details DateTypeDepartmentCare Team (Latest Contact Info)Hwywbvzfnoj55/12/2025amboo flowsheet APARNA HUNTER [address] [place] [address] Mervat Hall, SIGN FABRICATOR [address] [facility] [address] [place] [address] Social History Tobacco UseTypesPacks/DayYears UsedDateSmoking Tobacco: Never AssessedPHQ-2 AnswerDate RecordedPatient Health Questionnaire-2 Zyjjt884 Estimated Date of WamvmsvmSzyxtgwhWuj71/08/2025Based on UltrasoundSex and Gender InformationValueDate RecordedSex Assigned at BirthNot on fileLegal SexFemale 11/15/2022 6:46 PM EDTGender IdentityNot on fileSexual OrientationNot on file documented as of this encounter Plan of Treatment DateTypeDepartmentCare Team (Latest Contact Info)Xqgrhlyvogj52/18/2025 10:30 AM ESTRoutine [facility] [address] [place] [address] Harjeet Mohamud DO [address] [facility] [address] [place] [address] documented as of this encounter Visit Diagnoses Not on filedocumented in this encounter Care Teams Team MemberRelationshipSpecialtyStart DateEnd Date Jef Ramirez DO [address] [place] [address] PCP - General09/11/24documented as of this encounter
--- OUTSIDE RECORDS SUMMARY | 2025-07-15 14:26 | XMS_ITS | Encounter Summary ---
Author Organization [facility] Address [address] [place] [address] Care Team Providers Care Centrifuge Separator Tender Name Role Phone Jef Ramirez DO Primary Care Provider [phone] Encounter Details DateTypeDepartmentCare Team (Latest Contact Info)Ohmymzsoiot92/07/2025bstract APARNA HUNTER [address] [place] [address] [place] [address] Harjeet Mohamud [address] [place], [place] [address] Social History Tobacco UseTypesPacks/DayYears UsedDateSmoking Tobacco: Never AssessedPHQ-2 AnswerDate RecordedPatient Health Questionnaire-2 Gvyuu400 Estimated Date of YqmjohzbWljhtabyQys29/08/2025Based on UltrasoundSex and Gender InformationValueDate RecordedSex Assigned at BirthNot on fileLegal SexFemale 11/15/2022 6:46 PM EDTGender IdentityNot on fileSexual OrientationNot on file documented as of this encounter Plan of Treatment DateTypeDepartmentCare Team (Latest Contact Info)Bxmgvjodcgy54/18/2025 10:30 AM ESTRoutine APARNA HUNTER [address] [place] [address] [place] [address] Harjeet Mohamud [address] [place], [place] [address] documented as of this encounter Visit Diagnoses Not on filedocumented in this encounter Care Teams Team MemberRelationshipSpecialtyStart DateEnd Date Jef Ramirez DO [address] [place] [address] PCP - General09/11/24documented as of this encounter
--- OUTSIDE RECORDS SUMMARY | 2025-07-15 14:26 | XMS_ITS | Clinical Summary ---
Author Organization [facility] Address [address] [place] [address] Care Team Providers Care Marksmanship Instructor Name Role Phone Jef Ramirez DO Primary Care Provider [phone] Allergies No known active allergies Medications MedicationSigDispense QuantityRefillsLast FilledStart DateEnd DateStatus MV-Min-Fe Fum-FA-DHA ( 1 PO) Take 1 tablet by mouth DailyActive magnesium oxide (Mag-Ox) 400 MG tablet Indications:Restless legTake 1 tablet (400 mg) by mouth Daily 30 tablet 110///6Active Active Problems ProblemNoted DateDiagnosed DateIrregular vnihfkwo03/18/2023Estimated Date of JjtdzxtxOmcotagjYqd02/08/2025ased on Ultrasound Encounters DateTypeDepartmentCare BqmkIccooqoipea25/12/2025 11:20 AM ESTRoutine [facility] [address]UNTER [address] [place] [address] Mervat Hall NP 36 weeks gestation of ([facility]); Third trimester ([facility]); Restless leg07/15/2025Patient Outreach [facility] [address] [place] [address] Josseline Hastings LPN 07/15/2025amboo flowsheet [facility] [address] [place] [address] Mervat Hall NP 07/10/2025bstract [facility] [address] [place] [address] Harjeet Mohamud, 07/08/2025 11:20 AM ESTRoutine [facility] CHANDLERGYN Fadia [facility] [place] [address] Harjeet Mohamud, DO Third trimester ([facility]); 35 weeks gestation of ([facility])07/08/2025amboo flowsheet [facility] OBGYN Fadia [facility] [place] [address] Harjeet Mohamud, 07/06/2025linisync Result Encounter [facility] External Department Unsolicited Harjeet Mohamud, DO 07/06/2025Telephone [facility] CHANDLERGYRyan Loaiza [facility] [place] [address] Harjeet Mohamud, 06/22/2025 1:30 PM EDTRoutine [facility] Loaiza [facility] [place] [address] Harjeet Mohamud, DO Third trimester ([facility]); 33 weeks gestation of ([facility])06/22/2025 1:00 PM EDTAncillary Procedure [facility] Loaiza [facility] [place] [address] size inconsistent with dates ([facility])06/16/2025Patient Outreach [facility] [address] [place] [address] Josseline Hastings LPN 06/15/2025bstract [facility] [address] [facility] [place] [address] Harjeet Mohamud, DO 06/12/2025bstract [facility] [address] [place] [address] Josseline Hastings LPN 06/08/2025 9:00 AM EDTRoutine [facility] [place] [address] Mervat Hall, CHRISTIE size inconsistent with dates ([facility]) (Primary Dx); 31 weeks gestation of ([facility]); Third trimester ([facility])5Bamboo flowsheet [facility] [address] [facility] [place] [address] Mevrat Hall NP 05/19/2025 1:30 PM EDTRoutine [facility] [address] [facility] [place] [address] Josseline Andersen PA Third trimester ([facility]); 28 weeks gestation of ([facility])5Bamboo flowsheet [facility] [address] [facility] [place] [phone] Josseline Andersen PA 04/27/2025linisync Result Encounter [facility] External Department Unsolicited Josseline Andersen PA 04/22/2025 3:50 PM EDTRoutine [facility] [address] [place] [phone] Josseline Andersen PA Second trimester ([facility]); 24 weeks gestation of ([facility]); Diabetes mellitus screening; Restless leg04/22/2025amb flowsheet [facility] CUEVAN [address] [facility] [place] [address] Josseline Andersen PA from Last 3 Months Social History Tobacco UseTypesPacks/DayYears UsedDateSmoking Tobacco: Never AssessedPHQ-2 AnswerDate RecordedPatient Health Questionnaire-2 [id number] Estimated Date of MdrkgjbqZvjlecygUgv29/08/2025Based on UltrasoundSex and Gender InformationValueDate RecordedSex Assigned at BirthNot on fileLegal SexFemale 11/15/2022 6:46 PM EDTGender IdentityNot on fileSexual OrientationNot on file Last Filed Vital Signs Vital SignReadingTime TakenCommentsBlood Lryxhixh428/80109/14/2024 11:37 AM EST Pulse--Temperature--Respiratory Rate--Oxygen Saturation--Inhaled Oxygen Concentration--Pbrzmd26.4 kg (192 lb 9.6 oz)07/15/2025 11:37 AM RYAVxojme169.1 cm (5' 5 )02/18/2025 9:53 AM EDTBody Mass Index32.05002/18/2025 9:53 AM EDT Plan of Treatment DateTypeDepartmentCare Team (Latest Contact Info)Pguyglrhzga62/18/2025 10:30 AM ESTRoutine [facility] [address] [facility] [place] [address] Harjeet Mohamud DO [address] [facility] [place] [address] Procedures Procedure NamePriorityDate/TimeAssociated DiagnosisCommentsPOCT URINALYSIS APSSFPXFKzhnnqi84/12/2025 11:45 AM EST 36 weeks gestation of ([facility]) Third trimester ([facility]) POCT URINALYSIS HZSSYQGWMchgkzn21/05/2025 11:49 AM EST 35 weeks gestation of ([facility]) OMQTJTXIRrcifcf33/03/2025 12:12 PM EST [facility] UA (CLEAN/CATCH) DUMP MOTORMAN/MICRO IF IND.Camtmpx5707/06/2025 12:00 PM EST POCT URINALYSIS JCVTBWUXNhdhkzx84/20/2025 2:07 PM EDT 33 weeks gestation of ([facility]) OB FOLLOW UP TRANSABDOMINAL YDSYZKKJJzgdvbq98/20/2025 1:40 PM EDT size inconsistent with dates ([facility]) POCT URINALYSIS BSTJNFOIVqefcjd51/06/2025 9:21 AM EDT 31 weeks gestation of ([facility]) GLUCOSE 1 PQNTRwtvwxc00/25/2025 2:16 PM EDT ALL CBC WITH AUTO EVBDNabohjz59/25/2025 2:16 PM EDT POCT URINALYSIS FJLUDZYGWlbkcyj19/20/2025 4:25 PM EDT Second trimester ([facility]) 24 weeks gestation of ([facility]) from Last 3 Months Results * POCT urinalysis dipstick manually resulted (07/15/2025 11:45 AM EST) Only the most recent of5 resultswithin the time period is included. ComponentValueRef RangeTest MethodAnalysis TimePerformed AtPathologist Signature Color, UAYellowClarity, UAClearGlucose, UANegativeNegative - 2000(110) ++++ mg/dLBilirubin, UANegativeNegative - 4(70) +++ mg/dLKetones, UANegativeNegative - 160(16) ++++ mg/dLSpec Grav, UA1.0101 - 1.03Blood, UANegativeNegative - 50 Hesham/mcLpH, UA6.55 - 9Protein, UANegativeNegative - 2000(20) ++++ mg/dL Urobilinogen, UA1.00.2 - 12 mg/dLLeukocytes, UANegativeNegative - 500+++ Dary/mcL Nitrite, UANegativeNegative - PositiveSpecimen (Source)Anatomical Location / LateralityCollection Method / VolumeCollection TimeReceived WuybZmoop62/12/2025 11:45 AM EST Narrative Authorizing ProviderResult TypeResult StatusMervat Hall NPPOINT OF CARE TEST ENTER/EDIT ORDERABLESFinal Result * AMNISURE (07/06/2025 12:12 PM EST)ComponentValueRef RangeTest MethodAnalysis TimePerformed AtPathologist SignatureTBH AMNISURENEGATIVENEGATIVETBHSpecimen (Source)Anatomical Location / LateralityCollection Method / VolumeCollection TimeReceived Time07/06/2025 12:12 PM EST07/06/2025 12:18 PM EST Narrative EVA - 07/06/2025 12:35 PM EST Authorizing ProviderResult TypeResult StatusCorey Oneida DOLAB BLOOD ORDERABLES Final ResultPerforming OrganizationAddressCity/State/ZIP CodePhone Number EVA BOUDREAUXH * [facility] UA (CLEAN/CATCH) DUMP MOTORMAN/MICRO IF IND. (07/06/2025 12:00 PM EST)ComponentValue Ref RangeTest MethodAnalysis TimePerformed AtPathologist SignatureCOLOR URINE LT. YELLOWYELLOWTBHCLARITY URINECLEARCLEARTBHSPECIFIC GRAVITY URINE1.0201.005 - 1.025TBHPH URINE6.55.0 - 9.0TBHPROTEIN URINENEGATIVENEG/TRACE mg/dLTBH GLUCOSE URINE UANEGATIVENEGATIVE mg/dLTBHBILIRUBIN URINENEGATIVENEGATIVETBH KETONES URINENEGATIVENEGATIVE mg/dLTBHBLOOD URINENEGATIVENEGATIVETBHNITRITE URINENEGATIVENEGATIVETBHUROBILINOGEN URINE1.00.2 - 1.0 EU/dLTBHLEUKOCYTE ESTERASE URINENEGATIVENEGATIVETBHURINE MICROSCOPIC INDICATEDNOTBHSpecimen (Source)Anatomical Location / LateralityCollection Method / VolumeCollection TimeReceived Time07/06/2025 12:00 PM EST07/06/2025 12:05 PM EST Narrative EVA - 07/06/2025 12:19 PM EST Authorizing ProviderResult TypeResult StatusCorey Oneida DOCLINISYNCFinal Result Performing OrganizationAddressCity/State/ZIP CodePhone Number EVA BOUDREAUX * OB follow up transabdominal approach (06/22/2025 1:40 [...] RangeTest Method Analysis TimePerformed AtPathologist SignatureGLUCOSE 1 ACKH681<130 mg/dLTBH Specimen (Source)Anatomical Location / LateralityCollection Method / Volume Collection TimeReceived Time04/27/2025 2:16 PM EDT04/27/2025 2:17 PM EDT Narrative [facility] - 04/27/2025 2:52 PM EDT Authorizing ProviderResult TypeResult StatusJosseline Andersen [facility] BLOOD ORDERABLES Final ResultPerforming OrganizationAddressCity/State/ZIP CodePhone Number [facility] * (ABNORMAL) ALL CBC WITH AUTO DIFF (04/27/2025 2:16 PM EDT)ComponentValueRef RangeTest MethodAnalysis TimePerformed AtPathologist SignatureTBH WBC6.14.0 - 11.0 10 3/uLTBHTBH RBC3.39(L)4.20 - 5.40 10 6/uLTBHTBH HGB10.9(L)12.0 - 16.0 g/dLTBHTBH HCT31.9(L)36.0 - 48.0 %TBHTBH MCV94.181.0 - 99.0 fLTBHTBH MCH32.2 26.7 - 34.0 pgTBHTBH MCHC34.229.9 - 35.2 g/dLTBHTBH RDW12.311.0 - 15.0 %TBHTBH KER592084 - 450 10 3/uLTBHTBH MPV9.79.5 - 13.5 [...] 2:45 PM EDT Authorizing ProviderResult TypeResult StatusAmy Ganesh PACLINISYNCFinal Result Performing OrganizationAddressCity/State/ZIP CodePhone Number [facility] from Last 3 Months Insurance Care Teams Team MemberRelationshipSpecialtyStart DateEnd Date Jef Ramirez DO [address] [place] [address] PCP - General09/11/24
--- OUTSIDE RECORDS SUMMARY | 2025-07-15 14:26 | XMS_ITS | Encounter Summary ---
Author Organization [facility] Address [address] [place] [address] Care Team Providers Care Swing Manager Name Role Phone Jef Ramirez DO Primary Care Provider [phone] Encounter Details DateTypeDepartmentCare Team (Latest Contact Info)Aicomsvttzl05/05/2025amboo flowsheet [facility] HUNTER [address] [place] [address] [place] [address] Harjeet Mohamud [address] [place], [place] [address] Social History Tobacco UseTypesPacks/DayYears UsedDateSmoking Tobacco: Never AssessedPHQ-2 AnswerDate RecordedPatient Health Questionnaire-2 Krjzm518 Estimated Date of CaquiewdRvbzykfzAot11/08/2025Based on UltrasoundSex and Gender InformationValueDate RecordedSex Assigned at BirthNot on fileLegal SexFemale 11/15/2022 6:46 PM EDTGender IdentityNot on fileSexual OrientationNot on file documented as of this encounter Plan of Treatment DateTypeDepartmentCare Team (Latest Contact Info)Kfqajgzemgb43/18/2025 10:30 AM ESTRoutine [facility] HUNTER [address] [place] [address] [place] [address] Harjeet Mohamud DO [address] [place] [address] [place], [place] [address] documented as of this encounter Visit Diagnoses Not on filedocumented in this encounter Care Teams Team MemberRelationshipSpecialtyStart DateEnd Date Jef Ramirez DO [address] [place] [address] PCP - General09/11/24documented as of this encounter
--- OUTSIDE RECORDS SUMMARY | 2025-07-15 14:26 | XMS_ITS | Encounter Summary ---
Author Organization [facility] Address [address] [place] [address] Care Team Providers Care Visual Basic Developer Name Role Phone Jef Ramirez Primary Care Provider [phone] Encounter Details DateTypeDepartmentCare Team (Latest Contact Info)Zjpmslaqqxi53/03/2025Telephone [facility] [address] [facility] [place] [address] Harjeet Mohamud DO [address] [facility] [address] [place], [id number] Social History Tobacco UseTypesPacks/DayYears UsedDateSmoking Tobacco: Never AssessedPHQ-2 AnswerDate RecordedPatient Health Questionnaire-2 Wlozv565 Estimated Date of JxemvmjkUoafpvnsNyw60/08/2025Based on UltrasoundSex and Gender InformationValueDate RecordedSex Assigned [...] PVU Called and spoke with Vaishali at [facility] and advised patient is coming from home. Episode sent at this time. documented in this encounter Plan of Treatment DateTypeDepartmentCare Team (Latest Contact Info)Kqtsvaspytx46/18/2025 10:30 AM ESTRoutine [facility] [address] [facility] [place] [address] Harjeet Mohamud DO [address] [facility] [address] [place], [place] [id number] documented as of this encounter Visit Diagnoses Not on filedocumented in this encounter Care Teams Team MemberRelationshipSpecialtyStart DateEnd Date Jef Ramirez DO [address] [place] [address] PCP - General09/11/24documented as of this encounter
--- OUTSIDE RECORDS SUMMARY | 2025-07-15 14:37 | XMS_ITS | CCD ---
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 (Bld)17.76 %Normal0.00-20.00Children'S Hospital Of ColumbusComment on above:Performed By: #### HS TROP, CBC, CMP, CK #### [facility] [address] [place] [address] USAMonocytes/100 WBC (Bld)5.1 %Normal.Children'S Hospital Of ColumbusComment on above:Performed By: #### HS TROP, CBC, CMP, CK #### [place] [address] USANeutrophils (Bld) [#/Vol]5.7 10*3/uLNormal1.8-7.7FSt. Mary's Medical CenterComment on above:Performed By: #### HS TROP, CBC, CMP, CK #### [place] [address] USANeutrophils/100 WBC (Bld)63.9 %Normal.Children'S Hospital Of ColumbusComment on above:Performed By: #### HS TROP, CBC, CMP, CK #### [place] [address] USANRBC%0.1 /100{WBC}Normal0-0.5FSt. Mary's Medical CenterComment on above:Performed By: #### HS TROP, CBC, CMP, CK #### [facility] [address] [place] [address] USAPlatelet mean volume (Bld) [Entitic vol]6.9 fLNormal 6.3-10.7FSt. Mary's Medical CenterComment on above:Performed By: #### HS TROP, CBC, CMP, CK #### [place] [address] USAPlatelets (Bld) [#/Vol]277 10*3/cOZfhfdk816-932JpgzyrmifChildren'S Hospital Of ColumbusComment on above:Performed By: #### HS TROP, CBC, CMP, CK #### [place] [address] USARBC (Bld) [#/Vol]4.20 10*6/uLNormal3.60-5.00Children'S Hospital Of ColumbusComment on above:Performed By: #### HS TROP, CBC, CMP, CK #### [facility] [address] [place] [address] USAWBC (Bld) [#/Vol]8.9 10*3/uLNormal3.8-11.6FSt. Mary's Medical CenterComment on above:Performed By: #### HS TROP, CBC, CMP, CK #### [facility] [address] [place] [address] USAComprehensive Metabolic Panelon 02-88-1165Bpukttc [Mass/Vol]4.8 g/dLNormal3.5-5.7FSt. Mary's Medical CenterComment on above:Performed By: #### HS TROP, CBC, CMP, CK #### [facility] [address] [place] [address] USAAlbumin/Globulin [Mass ratio]1.7 {ratio}NormalChildren'S Hospital Of ColumbusComment on above:Performed By: #### HS TROP, CBC, CMP, CK #### [facility] [address] [place] [address] USAALP [Catalytic activity/Vol]48 U/FNueyey86-163IakfovyyvChildren'S Hospital Of ColumbusComment on above:Performed By: #### HS TROP, CBC, CMP, CK #### [facility] [address] [place] [address] USAALT [Catalytic activity/Vol]26 U/LNormal7-52Children'S Hospital Of ColumbusComment on above:Performed By: #### HS TROP, CBC, CMP, CK #### [facility] [address] [place] [address] USAAnion gap [Moles/Vol]18.9 mmol/LHigh6.0-15.0Children'S Hospital Of ColumbusComment on above:Performed By: #### HS TROP, CBC, CMP, CK #### [facility] [address] [place] [address] USAAST [Catalytic activity/Vol]24 U/LJxrhlc55-59HthgdpezvChildren'S Hospital Of ColumbusComment on above:Performed By: #### HS TROP, CBC, CMP, CK #### [place] [address] USABilirubin [Mass/Vol]0.3 mg/dLNormal0.3-1.0Children'S Hospital Of ColumbusComment on above:Performed By: #### HS TROP, CBC, CMP, CK #### [place] [address] USACalcium [Mass/Vol]9.3 mg/dLNormal8.6-10.3FSt. Mary's Medical CenterComment on above:Performed By: #### HS TROP, CBC, CMP, CK #### [place] [address] USAChloride [Moles/Vol]108 mmol/CZjsb62-328ByqkosyjkChildren'S Hospital Of ColumbusComment on above:Performed By: #### HS TROP, CBC, CMP, CK #### [place] [address] USACO2 [Moles/Vol]16.3 mmol/LLow21.0-31.0Children'S Hospital Of ColumbusComment on above:Performed By: #### HS TROP, CBC, CMP, CK #### [place] [address] USACreatinine [Mass/Vol]0.54 mg/dLLow0.60-1.20Children'S Hospital Of ColumbusComment on above:Performed By: #### HS TROP, CBC, CMP, CK #### [place] [address] USACreatinine Clr Calc Ryknxksz800.65NormalChildren'S Hospital Of ColumbusComment on above:Result Comment: PERFORMED BY: [place] [address] PATHOLOGIST FORKLIFT OPERATOR ELDER HUFF M.D.Performed By: #### HS TROP, CBC, CMP, CK #### [facility] [address] [place] [address] USAGFR/1.73 sq M.predicted MDRD (S/P/Bld) [Vol rate/Area] mL/min/{1.73_m2}NormalChildren'S Hospital Of ColumbusComment on above: Performed By: #### HS TROP, CBC, CMP, CK #### [facility] [address] [place] [address] USAGlobulin (S) [Mass/Vol]2.9 g/dLNormalChildren'S Hospital Of ColumbusComment on above:Performed By: #### HS TROP, CBC, CMP, CK #### [facility] [address] [place] [address] USAGlucose [Mass/Vol]160 mg/pPBruy19-650TzdfluiovChildren'S Hospital Of ColumbusComment on above:Result Comment: Random Glucose Reference Range is dependent on time and content of last meal. Glucose of more than 200 mg/dL in a nonstressed, ambulatory subject supports the diagnosis of Diabetes Mellitus. ADA recommended reference rangePerformed By: #### HS TROP, CBC, CMP, CK #### [facility] [address] [place] [address] USAPotassium [Moles/Vol]3.2 mmol/LLow3.5-5.1FSt. Mary's Medical CenterComment on above:Performed By: #### HS TROP, CBC, CMP, CK #### [facility] [address] [place] [address] USAProtein [Mass/Vol]7.7 g/dLNormal6.4-8.9Children'S Hospital Of ColumbusComment on above:Performed By: #### HS TROP, CBC, CMP, CK #### [facility] [address] [place] [id number] USASodium [Moles/Vol]140 mmol/WEgusgc616-060TrjznhtupChildren'S Hospital Of ColumbusComment on above:Performed By: #### HS TROP, CBC, CMP, CK #### [facility] [address] [place] [address] USAUrea nitrogen [Mass/Vol]19 mg/dLNormal7-25Children'S Hospital Of ColumbusComment on above:Performed By: #### HS TROP, CBC, CMP, CK #### [facility] [address] [place] [id number] USACreatine Kinaseon 87-84-1631WR [Catalytic activity/Vol]112 U/VYkyroe62-540CbdabcqokChildren'S Hospital Of ColumbusComment on above:Performed By: #### HS TROP, CBC, CMP, CK #### [facility] [address] [place] [address] USACreatine kinase [Enzymatic activity/volume] in Serum or PlasmaOrdered By: Caron Ribeiro on 53-36-9708RU [Catalytic activity/Vol]112 U/L Children'S Hospital Of ColumbusCreatinine [Mass/volume] in Serum or PlasmaOrdered By: Caron Ribeiro on 16-75-7104Fmebkdgjit [Mass/Vol]0.54 mg/dL 0.60-1.20Children'S Hospital Of ColumbusDrug Screen,Urineon 11-18-2022 Amphetamine Screen,UrineNegativeNormalNegativeChildren'S Hospital Of Columbus Comment on above:Performed By: #### URDS, CG, UA #### [place] [address] USABarbiturate Screen,UrineNegativeNormalNegativeChildren'S Hospital Of ColumbusComment on above:Performed By: #### URDS, CG, UA #### [place] [address] USABenzodiazepines Screen,UrineNegativeNormalNegative Children'S Hospital Of ColumbusComment on above:Performed By: #### URJORGE A, CG, UA #### [place] [address] USACannabinoid Screen,UrinePositiveHighNegativeChildren'S Hospital Of ColumbusComment on above:Result Comment: These are unconfirmed results and should not be used for legal purposes. Drug Cut-Off Concentration: AMPH 1000 ng/mL NOEMI 200 ng/mL EVER 200 ng/mL COCM 300 ng/mL OP 300 ng/mL PCP 25 ng/mL THC 20 ng/mL PERFORMED BY: [place] [address] PATHOLOGIST FORKLIFT OPERATOR ELDER HUFF M.D.Performed By: #### URJORGE A, CG, UA #### [facility] [address] [place] [address] USACocaine Screen,UrineNegativeNoMcKitrick HospitalComment on above:Performed By: #### URDS, UHCG, UA #### [facility] [address] [place] [address] USAOpiate Screen,UrineNegativeNormarNegPremier HealthComment on above:Performed By: #### URDS, CG, UA #### [facility] [address] [place] [address] USAPhencyclidine Screen,UrineNegativeUniversity Hospitals Lake West Medical CenterComment on above:Performed By: #### URDS, CG, UA #### [facility] [address] [place] [address] USAECG 12 lead ECGon 32-80-9318QUF 12 lead ECGKINDRED [facility] Main [place] [address] [place] [address] Electrocardiograph Report Signed Patient: Tristen Mccracken MR#: [id number] 0 : 1995 Acct:[id number] Age/Sex: 27 / F ADM Date: 11/18/22 Loc: ER Room: Type: [facility] Attending Dr: Ordering Provider: Caron Ribeiro Jr, MD Date of Service: 11/18/22 ECG/ECG [...] ECGs available Confirmed by CARON RIBEIRO MD ([id number]) on 11/18/2022 7:42:29 AM Referred By: Electronically Signed By:CARON RIBEIRO MD Transcribed By: MUS Signed By Caron Ribeiro Jr, [place] [id number] Mercy HospitalEosinophils Auto (Bld) [#/Vol] Ordered By: Caron Ribeiro on 08-92-9666Mvkhuoierhq (Bld) [#/Vol]0.1 10*3/uL 0.0-0.45Children'S Hospital Of ColumbusEosinophils/100 WBC Auto (Bld)Ordered By: Caron Ribeiro on 59-67-3132Rxdqujshgti/100 WBC (Bld)0.7 %.Children'S Hospital Of ColumbusErythrocyte distribution width Auto (RBC) [Ratio]Ordered By: Caron Ribeiro on 55-82-2556Mxpxbqmorzb distribution width (RBC) [Ratio]12.9 % 11.9-15.3FSt. Mary's Medical CenterEthanol [Mass/volume] in Serum or PlasmaOrdered By: Caron Ribeiro on 91-38-7229Exlihxj [Mass/Vol]246 mg/dL [facility] Hospital Of ColumbusEthanol [Mass/Vol]0.246 %Children'S Hospital Of ColumbusEthyl Alcohol Profileon 49-15-3846Snfnxfl [Mass/Vol]246 mg/dL [facility] HospitalComment on above:Performed By: #### HS TROP, CBC, CMP, CK #### [facility] [address] [place] [address] USAPercent Ethanol0.246 %[facility] Mer[facility] HospitalComment on above:Result Comment: PERFORMED BY: [place] [address] PATHOLOGIST FORKLIFT OPERATOR ELDER HUFF M.D.Performed By: #### HS TROP, CBC, CMP, CK #### [facility] [address] [place] [address] USAGlobulin Calc (S) [Mass/Vol]Ordered By: Caron Ribeiro on 27-72-8389Umryuojr (S) [Mass/Vol]2.9 g/dLChildren'S Hospital Of Columbus Glucose [Mass/volume] in Serum or PlasmaOrdered By: Caron Ribeiro on 11-18-2022 Glucose [Mass/Vol]160 mg/fY65-154BgqynprstChildren'S Hospital Of ColumbusComment on above:ADA recommended reference rangeRandom Glucose Reference Range is dependent on time and content of last meal. Glucose of more than 200 mg/dL in a nonstressed, ambulatory subject supports the diagnosisof Diabetes Mellitus.HCG ( test) IA.rapid Ql (U)Ordered By: Caron Ribeiro on 58-34-7128WPR ( test) Ql (U)NegativeChildren'S Hospital Of ColumbusHCG,Urineon 21-85-0974Jtyb HCG ( test) Ql (U)NegativeNormalChildren'S Hospital Of ColumbusComment on above:Order Comment: Name Collection Type:: Patricia CatheterResult Comment: PERFORMED BY: [facility] [address] [place] [address] PATHOLOGIST FORKLIFT OPERATOR ELDER HUFF M.D.Performed By: #### URDS, UHCG, UA #### [facility] [address] [place] [address] USAHematocrit Auto (Bld) [Volume fraction]Ordered By: Caron Ribeiro on 23-70-0802Magxdjfbqx (Bld) [Volume fraction]38.0 %34.0-46.4FSt. Mary's Medical CenterHemoglobin [Mass/volume] in BloodOrdered By: Caron Ribeiro on 76-29-0240Gjhpzfjnju (Bld) [Mass/Vol]12.9 g/dL11.8-15.4FSt. Mary's Medical CenterKetones Auto test strip (U) [Mass/Vol]Ordered By: Caron Ribeiro on 26-51-2758Htulkjv (U) [Mass/Vol]NegativeNegativeChildren'S Hospital Of ColumbusLaboratory - Chemistry and Chemistry - challengeOrdered By: Caron Ribeiro on 62-81-2827ZOH/1.73 sq M.predicted MDRD (S/P/Bld) [Vol rate/Area] mL/min/{1.73_m2}Children'S Hospital Of ColumbusLaboratory - CoagulationOrdered By: Caron Ribeiro on 08-65-1397RG Coag (PPP) [Time]10.9 s9.0-12.9Children'S Hospital Of ColumbusLeukocytes [#/volume] corrected for nucleated erythrocytes in Blood by Automated counOrdered By: Caron Ribeiro on 11-18-2022 WBC corrected for nucl RBC Auto (Bld) [#/Vol]8.9 10*3/uL3.8-11.6FSt. Mary's Medical CenterLymphocytes Auto (Bld) [#/Vol]Ordered By: Caron Ribeiro on 48-89-3616Ldkyjpoznsd (Bld) [#/Vol]2.7 10*3/uL1.00-4.8Children'S Hospital Of ColumbusLymphocytes/100 WBC Auto (Bld)Ordered By: Caron Ribeiro on 72-60-4299Tjtqspqpswo/100 WBC (Bld)29.8 %.Children'S Hospital Of ColumbusMCH Auto (RBC) [Entitic mass]Ordered By: Caron Ribeiro on 67-09-6755MBD (RBC) [Entitic mass]30.8 pg24.7-34.3FSt. Mary's Medical CenterMCHC Auto (RBC) [Mass/Vol]Ordered By: Caron Ribeiro on 42-11-2596OAQP (RBC) [Mass/Vol]34.0 g/dL 32.0-35.0Children'S Hospital Of ColumbusMCV Auto (RBC) [Entitic vol]Ordered By: Caron Ribeiro on 54-52-6864CFF (RBC) [Entitic vol]90.6 gM21-179HgcsuieksChildren'S Hospital Of ColumbusMonocyte distribution width [Entitic volume] in Blood by AutomatedOrdered By: Caron Ribeiro on 88-03-0646Ndtcfkah distribution width Auto (Bld) [Entitic vol]17.76 %0.00-20.00Children'S Hospital Of ColumbusMonocytes Auto (Bld) [#/Vol]Ordered By: Caron Ribeiro on 85-65-4102Sjrjvlhvu (Bld) [#/Vol] 0.5 10*3/uL0.0-0.8Children'S Hospital Of ColumbusMonocytes/100 WBC Auto (Bld) Ordered By: Caron Ribeiro on 14-67-9041Evuejighp/100 WBC (Bld)5.1 %.Children'S Hospital Of ColumbusNeutrophils Auto (Bld) [#/Vol]Ordered By: Caron Ribeiro on 48-15-3267Bkzbvkocjwb (Bld) [#/Vol]5.7 10*3/uL1.8-7.7FSt. Mary's Medical CenterNeutrophils/100 WBC Auto (Bld)Ordered By: aCron Ribeiro on 48-45-8601Bjotnuvvmbz/100 WBC (Bld)63.9 %.[facility] Nitrite Test strip Ql (U)Ordered By: Caron Ribeiro on 04-73-9051Hxyvjax Ql (U) NegativeNegPremier HealthNo Panel InformationOrdered By: Caron Ribeiro on 67-21-5325Rfglzuke Creatinine Clearance (Cvci975.65Children'S Hospital Of ColumbusNucleated erythrocytes [Presence] in Blood by Automated countOrdered By: Caron Ribeiro on 30-17-8073Fuwdkkabt RBC Auto Ql (Bld)0.1 /100{WBC}0-0.5FSt. Mary's Medical CenterOpiates [Presence] in Urine by Screen methodOrdered By: Caron Ribeiro on 93-76-6724Mpsqevy Screen Ql (U) NegativeNegPremier HealthPartial Thromboplastin Timeon 79-10-2563rOUA Coag (Bld) [Time]25.0 sLow25.1-36.5FSt. Mary's Medical CenterComment on above:Result Comment: PERFORMED BY: [place] [address] PATHOLOGIST FORKLIFT OPERATOR ELDER HUFF M.D.Performed By: #### HS TROP, CBC, CMP, CK #### [place] [address] USAPhencyclidine Screen Ql (U)Ordered By: Caron Ribeiro on 97-82-5661Htgcecbqnzgjo Ql (U)NegativeNegPremier Health Platelet mean volume Auto (Bld) [Entitic vol]Ordered By: Caron Ribeiro on 27-76-9912Ucizxwzf mean volume (Bld) [Entitic vol]6.9 fL6.3-10.7FSt. Mary's Medical CenterPlatelet poor plasma international normalized ratio (INR) by coagulation assay (relatOrdered By: Caron Ribeiro on 08-74-2764QLV Coag (PPP) [Relative time]0.9 {INR}Children'S Hospital Of ColumbusComment on above:INR Therapeutic Range A) Pre- and [...] Auto (Bld) [#/Vol]Ordered By: Caron Ribeiro on 23-99-4843Fbcvogkdx (Bld) [#/Vol] 277 10*3/qE757-909YzjletghnChildren'S Hospital Of ColumbusPotassium [Moles/volume] in Serum or PlasmaOrdered By: Caron Ribeiro on 73-40-9009Dytqbbkwu [Moles/Vol]3.2 mmol/L3.5-5.1FSt. Mary's Medical CenterProtein Auto test strip (U) [Mass/Vol]Ordered By: Caron Ribeiro on 40-95-6605Hydxpht (U) [Mass/Vol]Negative NegativeChildren'S Hospital Of ColumbusProtein [Mass/volume] in Serum or PlasmaOrdered By: Caron Ribeiro on 60-22-4164Cgufinw [Mass/Vol]7.7 g/dL6.4-8.9 [facility] Hospital Of ColumbusProthrombin Time INRon 25-09-7999PHL Coag (PPP) [Relative time]0.9 {INR}NormalChildren'S Hospital Of ColumbusComment on above:Result Comment: INR Therapeutic Range A) [...] #### HS TROP, CBC, CMP, CK #### [facility] [address] [place] [address] USAPT Coag (PPP) [Time]10.9 sNormal9.0-12.9Children'S Hospital Of ColumbusComment on above:Performed By: #### HS TROP, CBC, CMP, CK #### [facility] [address] [place] [id number] USARBC Auto (Bld) [#/Vol]Ordered By: Caron Ribeiro on 43-39-4719WMV (Bld) [#/Vol]4.20 10*6/uL3.60-5.00Paulding County Hospitalerum or plasma albumin/globulin mass ratioOrdered By: Caron Ribeiro on 17-11-4335Vxkyyjh/Globulin [Mass ratio]1.7 {ratio}Paulding County Hospitalerum or plasma anion gap determinationOrdered By: Caron Ribeiro on 68-74-2427Uypfe gap [Moles/Vol]18.9 mmol/L6.0-15.0Paulding County Hospitalodium [Moles/volume] in Serum or PlasmaOrdered By: Caron Ribeiro on 67-12-3073Afuzsp [Moles/Vol]140 mmol/X715-476WgxycxkwzChildren'S Hospital Of Columbus Specific gravity Auto test strip (U) [Rel density]Ordered By: Caron Ribeiro on 25-72-7967Zahzpwpd gravity (U) [Rel density]1.0061.001-1.030Children'S Hospital Of ColumbusTroponin I High Sensitivityon 84-49-3293Lxqmacow I High Sensitivity2.6 pg/mLNormal0.0-15.0Children'S Hospital Of ColumbusComment on above:Result Comment: PERFORMED BY: [facility] [address] [place] [address] PATHOLOGIST FORKLIFT OPERATOR ELDER HUFF M.D.Performed By: #### HS TROP, CBC, CMP, CK #### [facility] [address] [place] [address] USATroponin I.cardiac [Mass/volume] in Serum or Plasma by Detection limit <= 0.01 ng/Ordered By: Caron Ribeiro on 37-56-0358Nwqmzthi I.cardiac DL <= 0.01 ng/mL [Mass/Vol]2.6 pg/mL0.0-15.0Children'S Hospital Of ColumbusUrea nitrogen [Mass/volume] in Serum or PlasmaOrdered By: Caron Ribeiro on 01-77-8466Efmb nitrogen [Mass/Vol]19 mg/dL7-25Children'S Hospital Of ColumbusUrinalysison 25-22-8934Bjypuohejo (U)ClearNormalClearChildren'S Hospital Of ColumbusComment on above:Order Comment: Name Collection Type:: Patricia CatheterPerformed By: #### URDS, UHCG, UA #### [facility] [address] [place] [id number] USABilirubin,UrineNegativeNormalNegativeBlowing Rock Hospitals Regional Medical CenterComment on above:Order Comment: Name Collection Type:: Patricia CatheterPerformed By: #### URDS, UHCG, UA #### [facility] [address] [place] [address] USAColor (U)YellowNormalYellowChildren'S Hospital Of ColumbusComment on above:Order Comment: Name Collection Type:: Patricia Catheter Performed By: #### URDS, UHCG, UA #### [facility] [address] [place] [id number] USAGlucose Ql (U)NormalNormalNormOhioHealth Pickerington Methodist HospitalComment on above:Order Comment: Name Collection Type:: Patricia Catheter Performed By: #### URDS, UHCG, UA #### [facility] [address] [place] [address] USAKetones Ql (U)NegativeNormalNegPremier HealthComment on above:Order Comment: Name Collection Type:: Patricia CatheterPerformed By: #### URDS, UHCG, UA #### [facility] [address] [place], [place] [address] USALeukocyte esterase Test strip Ql (U)NegativeNormalNegWestern Reserve HospitalComment on above:Order Comment: Name Collection Type:: Patricia CatheterPerformed By: #### URDS, UHCG, UA #### [facility] [address] [place] [address] USANitrite,UrineNegativeNormarNegPremier HealthComment on above:Order Comment: Name Collection Type:: Patricia CatheterPerformed By: #### URDS, UHCG, UA #### [facility] [address] [place], [place] [address] USAOccult Blood,UrineNegativeNormarNegPremier HealthCommclaren thumb region on above:Order Comment: Name Collection Type:: Patricia CatheterPerformed By: #### URDS, UHCG, UA #### [facility] [address] [place], [place] [address] USApH (U)5.5 [pH]Normal5.0-9.0Children'S Hospital Of ColumbusComment on above:Order Comment: Name Collection Type:: Patricia Catheter Performed By: #### URDS, UHCG, UA #### [facility] [address] [place] [address] USAProtein,UrineNegativeNormalNegativeChildren'S Hospital Of ColumbusComment on above:Order Comment: Name Collection Type:: Patricia CatheterPerformed By: #### URDS, UHCG, UA #### [facility] [address] [place] [address] USASpecificy [place],Urine1.712Kzrfih4.001-1.030Children'S Hospital Of ColumbusComment on above:Order Comment: Name Collection Type:: Patricia CatheterPerformed By: #### URDS, UHCG, UA #### [facility] [address] [place] [address] USAUrobilinogen,UrineNormalNormalNormalChildren'S Hospital Of ColumbusComment on above:Order Comment: Name Collection Type:: Patricia CatheterPerformed By: #### URDS, UHCG, UA #### [facility] [address] [place] [address] USAUrine clarity by refractometry automatedOrdered By: Caron Ribeiro on 43-14-5795Ruyaynx Refractometry automated (U)ClearCleProvidence HospitalUrine glucose measurement by automated test strip (mass/volume)Ordered By: Caron Ribeiro on 37-20-5446Kbpolpb Auto test strip (U) [Mass/Vol]Normal mg/dLNormOhioHealth Pickerington Methodist HospitalUrine hemoglobin detection by automated test stripOrdered By: Caron Ribeiro on 11-18-2022 Hemoglobin Auto test strip Ql (U)NegativeNegativeChildren'S Hospital Of ColumbusUrine leukocyte esterase detection by automated test stripOrdered By: Caron Ribeiro on 69-56-9435Hnecfldwg esterase Auto test strip Ql (U)Negative NegativeChildren'S Hospital Of ColumbusUrobilinogen Auto test strip (U) [Mass/Vol]Ordered By: Caron Ribeiro on 60-06-4640Detpbcahgyhu (U) [Mass/Vol] Normal mg/dLNoAdena Pike Medical CenterWBC Auto (Bld) [#/Vol]Ordered By: Caron Ribeiro on 89-25-8696TTE (Bld) [#/Vol]8.9 10*3/uL3.8-11.6FSt. Mary's Medical CenterXR chest 1V portableon 91-15-6203AF chest 1V portable [facility] Main [place] [address] [place] [address] XRay Report Signed Patient: Tristen Mccracken MR#: [id number] 0 : 1995 Acct:[id number] Age/Sex: 27 / F ADM Date: 11/18/22 Loc: ER Room: [facility] Attending Dr: Copies to: Caron [...] Mandeep Chowdhury M.D.11/18/2022 11:25 AM Dictation Location: [place] [address] Transcribed By: [facility] 11/18/22 1125 Dictated By: Mandeep Chowdhury II, MD 11/18/22 1124 Signed By: 11/18/22 1125NoAdena Pike Medical CenterpH Auto test strip (U) Ordered By: Caron Ribeiro on 01-65-4901mV (U)5.5 [pH]5.0-9.0Children'S Hospital Of ColumbusXR CSPINE 2_3 VIEWSon 14-44-6310FG CSPINE 2_3 VIEWSEXAMINATION: XR CSPINE 2_3 VIEWS [...] Electronically authenticated by: JESENIA MOBLEY Date: 2020-08-03 15:03[facility] Vital Signs Date TimeVital SignValuePerforming FaizhdvvbXfepedqk13-82-3611 11:43-0500Body mass index (BMI) [Ratio]32.25 kg/w0Ubezm Oneida DO Work Phone: [phone] [place], [place] [address]11-05-2025 11:43-0500Body tatety97.91 kgCorey Oneida DO Work Phone: [phone] [place] [address]-05-2025 11:43-0500Diastolic blood racuhdve95 mm[Hg]Gilmer Oneida DO Work Phone: [phone] [place], [place] [address]11-05-2025 11:43-0500Systolic blood mm[Hg]Gilmer Oneida DO Work Phone: [phone] [place], [place] [address]10-20-2025 13:58-0400Body mass index (BMI) [Ratio]31.45 kg/b1Afxyq Oneida DO Work Phone: [phone] [place], [place] [address]10-20-2025 13:58-0400Body otzkjs73.73 kgCorey Oneida DO Work Phone: [phone] [place], [place] [address]Cxgrvpblrz23-85-3714 13:58-0400Diastolic blood xwxdafbt30 mm[Hg]Gilmer Oneida DO Work Phone: [phone] [place] [address]-20-2025 13:58-0400Systolic blood uyncukln271 mm[Hg]Gilmer Oneida DO Work Phone: [phone] [place], [place] [address]6610-06-2025 09:05-0400Body mass index (BMI) [Ratio]32.18 kg/d0KupcqavhMervat Hall NP Work Phone: [phone] [place], [place] [address]Wojdblovti68-60-9855 09:05-0400Body udhrxu67.73 kgMervat Hall NP Work Phone: [facility] CenterXhspxyaccr61-42-8942 09:05-0400Diastolic blood mm[Hg]Mervat Rafael [employer] Work Phone: [phone]-[facility] CenterQphucjbmfu49-78-3814 09:05-0400Systolic blood lrponqiu994 mm[Hg]Mervat Rafael [employer] SH[employer]ELER Work Phone: [phone] [place], [place] [address]Faattwjrnw81-32-5306 13:48-0400Body mass index (BMI) [Ratio]31.09 kg/m2Amy Amrit PA Work Phone: [phone] [place], [place] [id number] 13:48-0400Body miukta05.73 kgAmy Victoria PA Work Phone: [phone] [place] [id number] 13:48-0400Diastolic blood fgpnqpur61 mm[Hg]Josseline Amrit PA Work Phone: [phone] [place], [place] [id number] 13:48-0400Systolic blood vhiegxhs062 mm[Hg]Josseline Amrit PA Work Phone: [phone] [place], [place] [address]Ibwxqxfjza31-05-1507 16:17-0400Body mass index (BMI) [Ratio]29.39 kg/m2Amy Amrit PA Work Phone: [phone] [place], [place] [address]Qphpwighph65-51-7460 16:17-0400Body .11 kgAmy Amrit PA Work Phone: [phone] [place], [place] [address]Gdkvzgmqln24-56-6580 16:17-0400Diastolic blood ireyxjgn98 mm[Hg]Josseline Amrit PA Work Phone: [phone] [place], [place] [address]Ohspzmmlme93-29-8857 16:17-0400Systolic blood ugkkpsno324 mm[Hg]Josseline Amrit PA Work Phone: [phone] [place], [place] [address]Rimqonggjn02-28-2185 09:47-0400Body mass index (BMI) [Ratio]28.76 kg/y9Vnekv Oneida DO Work Phone: [facility] CenterBohrbkeqkq26-54-0108 09:47-0400Body .38 kgCorey Oneida DO Work Phone: [phone] [place], [place] [address]Fkvxzvnwgj23-39-6085 09:47-0400Diastolic blood lafmevpe02 mm[Hg]Gilmer Oneida DO Work Phone: [phone] CenterAtlapaggty48-25-0391 09:47-0400Systolic blood usengavv346 mm[Hg]Gilmer Oneida DO Work Phone: [phone] [place], [place] [address]Ciayhnvaky82-74-7003 09:53-0400Body .1 Parth Amrit PATEL Work Phone: [phone] [place], [place] [address]Eqftdcnjpu16-67-1496 09:47-0400Body mass index (BMI) [Ratio]28.12 kg/m2Josseline Amrit PATEL Work Phone: [phone] [place], [place] [address]Hzfpqudasj56-69-8517 09:47-0400Body klenye87.66 kgJosseline PATEL Work Phone: [phone] [place], [place] [address]Wejshxvadh17-86-5326 09:47-0400Diastolic blood mm[Hg]Josseline PATEL Work Phone: [phone] [place], [place] [address]Jftojbojic77-31-3439 09:47-0400Systolic blood zonzkvwp864 mm[Hg]Josseline PATEL Work Phone: [phone] [place], [place] [address]Razljieydx54-14-9015 11:45-0400Body tyyzjg52.41 kgCorey Oneida DO Work Phone: [phone] [place], [place] [address]Jhimamjcme77-26-0076 11:45-0400Diastolic blood yywrxteu15 mm[Hg]Gilmer Oneida DO Work Phone: [phone] [place], [place] [address]Cflpusobyh87-59-1287 11:45-0400Systolic blood prbplhus751 mm[Hg]Gilmer Oneida DO Work Phone: [phone] [place], [place] [address]Zjvoiarhlj56-30-1258 10:37-0400Body synstf63.47 kgNoCarondelet Health01-09-2025 11:50-0500Body ntbwye42.85 kgCorey Oneida DO Work Phone: [phone] [place], [place] [address]Whyejzldwi80-97-4949 11:50-0500Diastolic blood meujnecr56 mm[Hg]Gilmer Oneida DO Work Phone: [facility] CenterBaxdxcefdp71-18-7916 11:50-0500Systolic blood vurukrgf885 mm[Hg]Gilmer Oneida DO Work Phone: [facility] CenterLvtnbowwgs28-34-7127 06:23-0400Diastolic blood mm[Hg]MD Caron Ribeiro Jr Work Phone: [phone] [place], [place] 9284103-18-2023 06:23-0400 Heart rate90 /minMD Caron Ribeiro Jr Work Phone: [phone] [place], [place] 9284103-18-2023 06:23-0400 Respiratory rate18 /minMD Caron Ribeiro Jr Work Phone: [phone] [place], [place] 9284103-18-2023 06:23-0400 SaO2% (BldA) [Mass fraction]99 %MD Caron Ribeiro Jr Work Phone: [phone]03-18-2023 06:23-0400 Systolic blood mm[Hg]MD Caron Ribeiro Jr Work Phone: [phone] [place], [place] 9284103-18-2023 04:33-0400 Body osgrtuwefxx18.8 [degF]MD Caron Ribeiro Jr Work Phone: [phone] [place], [place] 9284103-18-2023 03:19-0400 Inhaled oxygen flow rate2 L/minMD Caron Ribeiro Jr Work Phone: [phone] [place], [place] 9284103-18-2023 00:42-0400 Body arbabu124.72 cmMD Caron Ribeiro Jr Work Phone: [phone] [place], [place] 9284103-18-2023 00:42-0400 Body uzyeqc34.2 kgMD Caron Ribeiro Jr Work Phone: [phone] [place] [address] Encounters Encounter DateEncounter TypeCare ProviderFacilityStart: 07-08-2025 End: 21-59-3985Kxused flowsheetCorey Oneida DO Work Phone: [facility] OBGYNStart: 07-08-2025 End: 48-31-2190Drffjz flowsheetCorey Oneida DO Work Phone: [facility]BGYNStart: 07-08-2025 End: 79-19-8352hfuomufqvnHHYMN FAZIONot AvailableStart: 07-08-2025 End: 08-00-6433Llndza outpatient visit 15 minutesCorey Oneida DO Work Phone: [facility] OBGYNComment on above:Third trimester ([facility]); 35 weeks gestation of ([facility])Start: 07-06-2025 End: 51-90-5884Bsobqxkja Result EncounterCorey Oneida DO Work Phone: NOHX External Department UnsolicitedStart: 07-06-2025 End: 17-36-3653Dbzlgmxmu Result EncounterCorey Oneida DO Work Phone: noms External Department UnsolicitedStart: 06-22-2025 End: 51-57-9115Gxqqei outpatient visit 15 minutesCorey Oneida DO Work Phone: [facility] OBGYNComment on above:Third trimester ([facility]); 33 weeks gestation of ([facility])Start: 06-22-2025 End: 26-51-7941cvntxusaywOWZJP FAZIONot AvailableStart: 06-08-2025 End: 55-33-3807Tcgkuj flowsOmkar Hall SNOW SHOVELER Work Phone: [facility]BGYNStart: 06-08-2025 End: 56-96-3997Sbsxsj flowsheetMervat Kingly [employer] SHOVELER Work Phone: [facility]BGYNStart: 06-08-2025 End: 25-76-3061tdupehzckdBMHIKMBF RAFAELNot AvailableStart: 06-08-2025 End: 46-21-3732Lbtojs outpatient visit 15 [address] SNOW SHOVELER Work Phone: [facility] OBGYNComment on above: size inconsistent with dates ([facility]) (Primary Dx); 31 weeks gestation of ([facility]); Third trimester ([facility])Start: 05-19-2025 End: 28-41-6380Uzpvex flowsDarshana PATEL Work Phone: [facility]BGYNStart: 05-19-2025 End: 13-51-7986Mzyzks flowsheetJosseline PATEL Work Phone: [facility]BGYNStart: 05-19-2025 End: 68-78-2396Oywbvv outpatient visit 15 minutesAmy Amrit PATEL Work Phone: [facility] OBGYNComment on above:Third trimester ([facility]); 28 weeks gestation of ([facility])Start: 05-19-2025 End: 30-81-1823cpqvbczljtOPQ AMRITNot AvailableStart: 04-27-2025 End: 33-30-4991Wdcppvxoo Result EncounterJosseline PATEL Work Phone: [facility] External Department UnsolicitedStart: 04-27-2025 End: 36-39-6206Rpujqqvpd Result EncounterJosseline PATEL Work Phone: [facility] External Department UnsolicitedStart: 04-22-2025 End: 58-59-3208nyhgtnbdchRRM RAMEYNot AvailableStart: 04-22-2025 End: 89-66-9376Nlfbbf outpatient visit 15 minutesAmy Amrit PATEL Work Phone: [facility] OBGYNComment on above:Second trimester ([facility]); 24 weeks gestation of ([facility]); Diabetes mellitus screening; Restless legStart: 04-22-2025 End: 51-60-7630Ytyjjz Liseth PATEL Work Phone: [facility]BGYNStart: 04-22-2025 End: 16-00-6175Lcoicf flowsheetJosseline PATEL Work Phone: [facility] OBGYNStart: 03-23-2025 End: 11-02-6253Ivscbe outpatient visit 15 minutesCorey Oneida DO Work Phone: [facility] BCP OBComment on above:20 weeks gestation of ([facility]); Second trimester ([facility])Start: 03-23-2025 End: 27-82-6506hswbpaxhczFLPWG FAZIONot AvailableStart: 02-18-2025 End: 25-62-6523Rtvjsu flowsheetJosseline PATEL Work Phone: [facility] OBStart: 02-18-2025 End: 73-61-7559Lejzdk flowsheetJosseline PATEL Work Phone: [facility] BCP OBStart: 02-18-2025 End: 01-68-7652Ryfnbkssf Result EncounterJosseline PATEL Work Phone: [facility] External Department UnsolicitedStart: 02-18-2025 End: 81-26-0017Gvngndyc Result EncounterJosseline PATEL Work Phone: noMS External Department UnsolicitedStart: 02-18-2025 End: 54-49-9079Adjyup outpatient visit 15 minutesAmy Amrit PATEL Work Phone: [facility] BCP OBComment on above:Well woman exam with routine gynecological exam; Exposure to STD; Need for maternal serum alpha-protein (MSAFP) screening ([facility]); Second trimester ([facility]); 15 weeks gestation of ([facility]); Screening, , for anatomic survey ([facility])Start: 02-18-2025 End: 38-19-2446Bqvfpud encounter procedureJosseline PATEL Work Phone: [facility] HealthcareStart: 02-18-2025 End: 61-71-7280gbksakwzglLVN Kateryna AvailableStart: 01-28-2025 End: 62-35-8363Qyehnw flowsheetCorey Oneida DO Work Phone: [facility] BCP OBStart: 01-28-2025 End: 81-17-1551Eodclf flowsheetCorey Oneida DO Work Phone: [facility] BCP OBStart: 01-28-2025 End: 90-58-8625hgsbwxdfdvQMSAI FAZIONot AvailableStart: 01-28-2025 End: 52-97-9727Dgshok outpatient visit 15 minutesCorey Oneida DO Work Phone: noms BCP OBComment on above:First trimester ; 12 weeks gestation of pregnancyStart: 01-09-2025 End: 75-42-7115Nirbrkwxj Result EncounterCorey Oneida DO Work Phone: noms External Department UnsolicitedStart: 01-09-2025 End: 93-65-5632Xgvworwin Result EncounterCorey Oneida DO Work Phone: noms External Department UnsolicitedStart: 01-09-2025 End: 20-85-7731Wcfwgb outpatient visit 5 minutesNoms Bcp Ob Oneida NurseNOMS BCP OBComment on above:GA: 8g9nXxnpg: 01-09-2025 End: 62-58-6895sbwhgmqqeqFFOVT FAZIONot AvailableStart: 09-11-2024 End: 25-77-1238Nfpkald encounter procedureCorey Oneida DO Work Phone: noms BCP OBComment on above:Encounter for IUD removal Start: 09-11-2024 End: 31-88-0748zjlbouglztEPICI FAZIONot AvailableStart: 11-18-2022 End: 15-02-2175Bxoilwvyk department patient visitBryfarideh RamirezFacility:[facility] Hospitaltart: 11-18-2022 End: 81-98-3480Bvyhhfspw department patient visitMD Caron Ribeiro Jr Work Phone: [facility] Work Phone: Start: 08-03-2020 End: 05-68-7699Jskapfb encounter procedureDOCTOR MISCFacility:H1 Procedures DateProcedureProcedure DetailPerforming ClinicianStart: 77-04-5541Owusj dip stick/tablet rgnt non-auto w/o micrscpCorey Oneida DO Work Phone: Start: 73-75-0219IZV UA (CLEAN/CATCH) MERCERIZING RANGE FEEDER/MICRO IF IND.Gilmer Oneida DO Work Phone: Start: 68-89-2949Pbxpd dip stick/tablet rgnt non-auto w/o micrscpCorey Oneida DO Work Phone: Start: 60-98-7372Walxl dip stick/tablet rgnt non-auto w/o micrscpMervat Hall [employer]ER Work Phone: Start: 68-63-8183TNA CBC WITH AUTO DIFFAmy Amrit PATEL Work Phone: Start: 55-66-4448Lawas dip stick/tablet rgnt non-auto w/o micrscpAmy Amrit PATEL Work Phone: Start: 80-36-3501Ppddi dip stick/tablet rgnt non-auto w/o micrscpCorey Oneida DO Work Phone: Start: 99-21-3955ENRXUDRTU VAGINITIS (HTRX)Josseline PATEL Work Phone: Start: 86-32-2545Nsvaz dip stick/tablet rgnt non-auto w/o micrscpAmy Amrit PATEL Work Phone: Start: 79-36-0749FXE,APTIMA HPV,AGE GDLNJosseline PATEL Work Phone: Start: 86-65-0251Yepqe dip stick/tablet rgnt non-auto w/o micrscpCorey Oneida DO Work Phone: Start: 37-26-4292CIJ CBC WITH AUTO DIFFCorey Oneida DO Work Phone: Start: 01-09-2025 End: 01-66-4306Jwbyr dip stick/tablet rgnt non-auto w/o micrscpCorey Oneida DO Work Phone: Start: 97-66-8164ROX REMOVALCorey Oneida DO Work Phone: Plan of Treatment DateCare ActivityDetailAuthorStart: 07-16-2025 End: 26-00-8294Buuhudw encounter camaatdtt63/13/2025 11:20 AM EST Routine [facility] [address] [facility] [place] [phone] Mervat Hall, [employer]ELER [address] [place] [address] [facility] OBGYNStart: 07-08-2025 End: 89-62-2298Rbxleba encounter eewptccmd81/05/2025 11:20 AM EST Routine [facility] [address] [place] [phone] Gilmer Mohamud DO [address] [place] [address] [facility] OBGYNStart: 06-08-2025 End: 66-92-0265FG for pregnancyUS OB follow up transabdominal approach Imaging Routine size inconsistent with dates ([facility]) Expected: 06/08/2025, Expires: 10/09/2025[facility] Work Phone: comment on above:Expected: 06/08/2025, Expires: 10/09/2025Start: 06-01-2025 End: 33-95-8539Xdxjxia encounter /29/2025 9:50 AM EDT Routine [facility] [address] [place], [id number] Mervat Hall, [employer]ER [address] [place] [phone] [facility] OBGYNStart: 05-19-2025 End: 89-29-7234Hylcdxb encounter sqjtsrakh63/16/2025 1:30 PM EDT Routine [facility] [address] [place], [id number] Josseline Marcus PA [address] [place] [address] ArrivedAPARNA [place] OBGYNComment on above:ArrivedStart: 05-13-2025 End: 97-47-5017Pppjhdu encounter /10/2025 3:10 PM EDT Routine [facility] [address] [place], [id number] Gilmer Mohamud, DO [address] [place] [address] NOMArron [place] OBGYNStart: 04-22-2025 End: 65-13-7595HVS panel - Blood by Automated countCBC Lab Routine Diabetes mellitus screening Expected: 04/22/2025 (Approximate), Expires: 04/22/2026[facility] Work Phone: comment on above:Expected: 04/22/2025 (Approximate), Expires: 04/22/2026Start: 04-22-2025 End: 49-48-0331Xqeiycltrsc of glucose 1 hour after glucose challenge for glucose tolerance testGlucose tolerance, 1 hour Lab Routine Diabetes mellitus screening Expected: 04/22/2025 (Approximate), Expires: 04/22/2026[facility] HealthcareComment on above:Expected: 04/22/2025 (Approximate), Expires: 04/22/2026Start: 03-23-2025 End: 87-71-3681Nvcaqss encounter xbyvqpjoh88/21/2025 9:40 AM EDT Routine [facility] [address] [place], [place] [phone] Gilmer Mohamud, DO [address] [place] [address] N[facility] BCP OBStart: 03-23-2025 End: 36-09-2677Fxmgolghdhks / ancillary services ggnjgshuvi31/21/2025 8:30 AM EDT Ancillary Procedure [facility] [address] [place] [address] UQRQ BCP OBStart: 02-18-2025 End: 32-46-8635Purfu fetoprotein, maternalAlpha fetoprotein, maternal Lab Routine Need for maternal serum alpha-protein (MSAFP) screening ([facility]) Expected: 02/18/2025 (Approximate), Expires: 03/20/2025N[facility]S HealthcareComment on above:Expected: 02/18/2025 (Approximate), Expires: 03/20/2025Start: 02-18-2025 End: 93-85-2137BD for pregnancyUS OB 14+ weeks anatomy scan Imaging Routine Screening, , for anatomic survey ([facility]) Expected: 02/18/2025 (Approximate), Expires: 05/21/2025N[facility] HealthcareComment on above:Expected: 02/18/2025 (Approximate), Expires: 05/21/2025Start: 02-18-2025 End: 83-86-6504Odupsmt encounter procedureNOMS BCP OBComment on above:Arrived Start: 02-03-2025 End: 51-42-6584Oaseogu encounter nsydxmfir02/03/2025 10:00 AM EDT Office Visit [facility] [address] [place], [place] [phone] Gilmer Mohamud, DO [address] [place] [address] N[facility] BCP OBStart: 01-28-2025 End: 08-57-2826Ddbwgmd encounter ostnmtxjg20/28/2025 11:20 AM EDT Routine [facility] [address] [place] [address] Gilmer Mohamud, DO [address] [place] [address] NOM[facility] BCP OBStart: 01-09-2025 End: 84-09-6872TMB/RhABO/Rh Lab Routine Missed menses , unspecified gestational age Expected: 01/09/2025 (Approximate), Expires: 01/09/2026[facility] HealthcareComment on above:Expected: 01/09/2025 (Approximate), Expires: 01/09/2026Start: 01-09-2025 End: 60-92-3336Phqnr type and Indirect antibody screen panel - BloodType and screen Lab Routine Missed menses , unspecified gestational age Expected: 01/09/2025 (Approximate), Expires: 01/09/2026[facility] HealthcareComment on above:Expected: 01/09/2025 (Approximate), Expires: 01/09/2026Start: 01-09-2025 End: 27-21-3481Xnloa of abuse panel - Urine by Screen methodRapid drug screen, urine Lab Routine , unspecified gestational age Encounter for supervision of normal first in first trimester Expected: 01/09/2025 (Approximate), Expires: 01/09/2026[facility] HealthcareComment on above:Expected: 01/09/2025 (Approximate), Expires: 01/09/2026Start: 01-08-2025 End: 78-32-3131GK Pelvis transvaginalUS OB transvaginal Imaging Routine Missed menses Expected: 01/08/2025, Expires: 04/10/2025[facility] Work Phone: comment on above:Expected: 01/08/2025, Expires: 04/10/2025Start: 13-76-9126Hrchh chest X-rayXR chest 1V portablePaulding County Hospitaltart: 26-36-5753IB Chest Single viewPaulding County Hospitaltart: 54-87-4969CG cervical spine without contrastCT cervical spine wo [facility]: 42-40-4536TR Cervical spine WO [facility] Hospitalt[facility]: 95-80-7222HT of head without contrastCT head/brain wo [facility]tart: 34-24-3008EN Unspecified body region WO [facility] SystemBacteria identified in Urine by CultureUrine culture Microbiology Routine Missed menses Ordered: 01/09/2025[facility] HealthcareComment on above:Ordered: 01/09/2025BC W Auto Differential panel - BloodCBC and differential Lab Routine Missed menses , unspecified gestational age Ordered: 01/09/2025[facility] HealthcareComment on above:Ordered: 01/09/2025HLAMYDIA TRACHOMATIS (GENITO/STI)CHLAMYDIA TRACHOMATIS (GENITO/STI) Lab Routine Exposure to STD Ordered: 02/18/2025[facility] HealthcareComment on above:Ordered: 02/18/2025ytology Cervical or vaginal smear or scraping studyPap Smear Pathology and Cytology Routine Well woman exam with routine gynecological exam Ordered: 02/18/2025[facility] HealthcareComment on above: Ordered: 02/18/2025Hemoglobin A1c/Hemoglobin.total in BloodHemoglobin A1c Lab Routine Missed menses , unspecified gestational age Ordered: 01/09/2025 [facility] HealthcareComment on above:Ordered: 01/09/2025Hepatitis B virus surface Ag [Presence] in Serum or Plasma by ImmunoassayHepatitis B surface antigen Lab Routine Missed menses , unspecified gestational age Ordered: 01/09/2025 [facility] HealthcareComment on above:Ordered: 01/09/2025Hepatitis C virus Ab [Presence] in Serum or Plasma by ImmunoassayHepatitis C antibody Lab Routine Missed menses , unspecified gestational age Ordered: 01/09/2025[facility] HealthcareComment on above:Ordered: 01/09/2025HIV-1/HIV-2 antigen/antibody combination immunoassayHIV-1 and HIV-2 antibodies Lab Routine Missed menses , unspecified gestational age Ordered: 01/09/2025[facility] HealthcareComment on above:Ordered: 01/09/2025Neisseria gonorrhoeae DNA [Presence] in Unspecified specimen by GHAZALA with probe detectionNeisseria gonorrhea DNA probe, direct Lab Routine Exposure to STD Ordered: 02/18/2025[facility] HealthcareComment on above: Ordered: 02/18/2025Patient EducationAlcohol Intoxication [facility] Work Phone: Patient [facility] Work Phone: Reagin Ab [Presence] in Serum by RPRRPR Lab Routine Missed menses , unspecified gestational age Ordered: 01/09/2025[facility] CenterComment on above:Ordered: 01/09/2025Rubella antibody, IgGRubella antibody, IgG Lab Routine Missed menses , unspecified gestational age Ordered: 01/09/2025[facility] CenterComment on above:Ordered: 01/09/2025 SURESWAB(R) ADVANCED VAGINITIS PLUS, TMASURESWAB(R) ADVANCED VAGINITIS PLUS, TMA Pathology and Cytology Routine Exposure to STD Ordered: 02/18/2025[facility] Work Phone: comment on above:Ordered: 02/18/2025US Pelvis transvaginalUS OB transvaginal Imaging Routine Missed menses 01/09/2025 9:45 AM [facility] Payers DatePayer CategoryPayerPolicy [id number] [id number] [id number]-[id number] 2..1.565791.3.57[id number] 2..1.205153.3.57[id number] 2..1.995804.3.57[id number] 2..1.560671.3.57[id number] 2..1.259159.3.57[id number] 2..1.322493.3.57[id number] 2.16.840.1.526176.3.57[id number] 2.16.840.1.728065.3.57[id number] 2.16.840.1.265816.3.57[id number] 2.16.840.1.962648.3.57[id number] 2.16.840.1.332904.3.57[id number] 2.16.840.1.318533.3.57[id number] 2..840.1.981965.3.57[id number] 2.840.1.597663.3.57[id number] 2..840.1.292333.3.579.2.531 Social History DateTypeDetailFacilityStart: 88-55-7697Sljybdp smoking status NHISUnknown if ever smokedPaulding County Hospitaltart: 10-82-8244Tfj Assigned At BirthFeSelect Medical Cleveland Clinic Rehabilitation Hospital, Beachwoodtart: 73-73-2772Ubh assigned at birthNot on fileS[facility]E VALLEY [facility] HealthcareStart: 42-98-8293Vajplv identityNot on fileSANPETE VALLEY HOSP[facility] Healthcare Work Phone: Start: 80-46-9824ZcvvsykzaMGVH HealthcareStart: 30-95-5860Vwvkcep of Social functionNOIL Healthcare Work Phone: Start: 28-05-5982OzbSewaobUKDH Healthcare Clinical Notes 09-11-2024 to 07-08-2025 Note Date & FlieTdblAmwayndk66-52-6328 History of Present illness Narrative* Esther Leo, [employer] DEVELOPER - 07/08/2025 11:20 AM EST Reason for [...] nursing note reviewed. Exam conducted with a rn paralegal present. Vitals: Estimated body mass index is 32.25 kg/m as calculated from the following: Height as of 02/18/25: 5' 5 . Weight as of this encounter: 193 lb 12.8 oz. BP: 108/70 Patient's last menstrual period was 10/17/2024. Assessment/Plan ICD-10-CM 1. Third trimester ([facility]) Z34.93 2. 35 weeks gestation of ([facility]) Z3A.35 POCT urinalysis dipstick manually resulted [...] of: Gilmer Mohamud DO documented in this encounterWestern Missouri Mental Health CenterOzarxbjpkj71-75-4898 History of Present illness Narrative* Mervat Hall [...] nursing note reviewed. Exam conducted with a rn paralegal present. Vitals: Estimated body mass index is 31.45 kg/m as calculated from the following: Height as of 02/18/25: 5' 5 . Weight as of this encounter: 189 lb. BP: 110/70 Patient's last menstrual period was 10/17/2024. Assessment/Plan ICD-10-CM 1. Third trimester ([facility]) Z34.93 2. 33 weeks gestation of ([facility]) Z3A.33 POCT urinalysis dipstick manually resulted Return [...] VAGINAL DELIVERY x2 2014&2017 documented in this encounterWestern Missouri Mental Health CenterNbkuirypzq68-86-3630 History of Present illness Narrative* Mervat Hall [...] nursing note reviewed. Exam conducted with a rn paralegal present. Vitals: Estimated body mass index is 32.18 kg/m as calculated from the following: Height as of 02/18/25: 5' 5 . Weight as of this encounter: 193 lb 6.4 oz. BP: 118/78 Patient's last menstrual period was 10/17/2024. ASSESSMENT & PLAN ICD-10-CM 1. 31 weeks gestation of ([facility]) Z3A.31 POCT urinalysis dipstick manually resulted 2. Third trimester ([facility]) Z34.93 Return OB: Patient presents today for [...] of: Mervat Hall NP documented in this encounterWestern Missouri Mental Health CenterIrasdfqbzg16-75-7525 History of Present illness Narrative* JORGE Patrick [...] ASSESSMENT & PLAN ICD-10-CM 1. Third trimester ([facility]) Z34.93 2. 28 weeks gestation of ([facility]) Z3A.28 Return OB: Patient presents today for [...] behalf of: JORGE Patrick documented in this encounterWestern [facility] Health [id number] History of Present illness Narrative* JORGE Patrick [...] ASSESSMENT & PLAN ICD-10-CM 1. Second trimester ([facility]) Z34.92 POCT urinalysis dipstick manually resulted 2. 24 weeks gestation of ([facility]) Z3A.24 POCT urinalysis dipstick manually resulted [...] behalf of: JORGE Patrick documented in this encounterWestern [facility] Mental Health [id number] History of Present illness Narrative* Mervat Hall NP - 03/23/2025 9:40 AM EDT Reason for [...] nursing note reviewed. Exam conducted with a rn paralegal present. Vitals: Estimated body mass index is 28.76 kg/m as calculated from the following: Height as of 02/18/25: 5' 5 . Weight as of this encounter: 172 lb 12.8 oz. BP: 118/70 Patient's last menstrual period was 10/17/2024. ASSESSMENT & PLAN ICD-10-CM 1. 20 weeks gestation of ([facility]) Z3A.20 POCT urinalysis dipstick manually resulted 2. Second trimester ([facility]) Z34.92 POCT urinalysis dipstick manually resulted Return [...] of: Gilmer Mohamud DO documented in [facility] encounterWestern [facility] [id number] History of Present illness Narrative* JORGE Patrick [...] nursing note reviewed. Exam conducted with a rn paralegal present. Vitals: Estimated body mass index is [...] Need for maternal serum alpha-protein (MSAFP) screening ([facility]) Z36.1 Alpha fetoprotein, maternal Alpha fetoprotein, maternal 4. Second trimester ([facility]) Z34.92 POCT urinalysis dipstick manually resulted 5. 15 weeks gestation of ([facility]) Z3A.15 6. Screening, , for anatomic survey ([facility]) Z36.89 US OB 14+ weeks anatomy scan [...] nursing note reviewed. Exam conducted with a rn paralegal present. Vitals: Estimated body mass index is [...] Need for maternal serum alpha-protein (MSAFP) screening ([facility]) Z36.1 Alpha fetoprotein, maternal Alpha fetoprotein, maternal 4. Second trimester ([facility]) Z34.92 POCT urinalysis dipstick manually resulted 5. 15 weeks gestation of ([facility]) Z3A.15 6. Screening, , for anatomic survey ([facility]) Z36.89 US OB 14+ weeks anatomy scan Return OB/Annual Exam: Patient presents today for a annual exam/routine obstetrics appointment. Patient is currently [id number]. Patient states she is doing well but [...] behalf of: JORGE Patrick documented in this encounterWestern Missouri Mental Health CenterAsqialaepo49-07-8564 History of Present illness Narrative* Esther Leo, CHANDA - 01/28/2025 11:20 AM EDT Reason for [...] nursing note reviewed. Exam conducted with a rn paralegal present. Vitals: There is no height or [...] or undercooked meat, and stay away from [facility]. Patient has been consulted regarding any further do's and don'tsof . Patient voiced understanding and all questions and concerns were answered. Orders Placed This Encounter Procedures POCT urinalysis dipstick manually resulted Follow Up: Patient is to return in 4 weeks for routine OB appointment. Documented by Esther Leo LPN on behalf of: Gilmer Mohamud DO documented in this encounterWestern Missouri Mental Health [id number] History of Present illness Narrative* Isabel Adair [...] or undercooked meat, and stay away from [facility]. Patient has also been advised to [...] by: Isabel Adair LPN documented in this encounterWestern Missouri Mental Health [id number] History of Present illness Narrative* Mitali Tavares LPN - 09/11/2024 11:30 AM ESTAssociated Order(s): IUD [...] nursing note reviewed. Exam conducted with a rn paralegal present. Vitals: There is no height or [...] of: Gilmer Mohamud DO documented in this encounterNOIL HealthcareEvaluation noteNo assessment information availableAvita Health System Ctr Work Phone: Evaluation note* Diagnosis Encounter for IUD removal documented [facility] this encounter [facility]* Diagnosis Missed menses , unspecified gestational age Encounter for supervision of normal first in first trimester [facility]* Diagnosis First trimester state, incidental 12 weeks gestation of documented in this encounter [facility]* Diagnosis Well woman exam with routine gynecological exam Routine gynecological examination Exposure to STD Need for maternal serum alpha-protein (MSAFP) screening ([facility]) Second trimester ([facility]) state, incidental 15 weeks gestation of ([facility]) Screening, , for anatomic survey ([facility]) Encounter for anatomic survey documented in this encounter [facility]* Diagnosis 20 weeks gestation of ([facility]) Second trimester ([facility]) state, incidental documented in this encounter [facility]* Diagnosis Second trimester ([facility]) state, incidental 24 weeks gestation of ([facility]) Diabetes mellitus screening Screening for diabetes mellitus Restless leg Restless legs syndrome (RLS) documented in this encounter [facility]* Diagnosis Third trimester ([facility]) state, incidental 28 weeks gestation of ([facility]) documented in this encounter [facility]* Diagnosis size inconsistent with dates ([facility])- Primary 31 weeks gestation of ([facility]) Third trimester ([facility]) state, incidental documented in this [facility]* Diagnosis Third trimester ([facility]) state, incidental 33 weeks gestation of ([facility]) documented [facility] this encounter [facility]* Diagnosis Third trimester ([facility]) state, incidental 35 [...] if you have any further problems or concerns.[facility] Work Phone: Summary Purpose Family History No Family History Records FoundNo Family History Records FoundNo Family History Records Found Advance Directives Advance Directive Response Recorded Date/ Time Advance Directives No November 18 023 1:04am Chief Complaint and Reason for Visit Chief Complaint AMS Additional Source Comments INFORMATION SOURCE (unrecogn ized section and content) DATE CREATED AUTHOR 08/05/2020 [facility] DATE CREATED AUTHOR AUTHOR'S ORGANIZ ATION 11/29/2022 [facility] DATE CREATED AUTHOR AUTHOR'S ORGANIZ ATION 07/10/2025 [facility] EPIC Care Teams (unrecognized sec tion and content) Team Status: Active Member Role Status Dates Jef Ramirez DO Primary Care Provider Active Team Status: Inactive Member Role Status Dates Caron Ribeiro Jr, MD Emergency Provider Active Loly Serrano Care ProviderActiveTeam MemberRelationshipSpecialtyStart DateEnd Date Jef Ramirez MD [address] [place] [phone] PCP - General09/11/24Team MemberRelationshipSpecialtyStart DateEnd Date Jef Ramirez DO [address] [place] [phone] PCP - General09/11/24Team MemberRelationshipSpecialtyStart DateEnd Date Jef Ramirez, DO [address] [place] [facility] [place] [address] PCP - General09/11/24Team MemberRelationshipSpecialtyStart DateEnd Date Jef Ramirez, DO [address] [place] [facility] [place] [address] PCP - General09/11/24Team MemberRelationshipSpecialtyStart DateEnd Date Jef Ramirez, DO [address] [place] [facility] [place] [address] PCP - General09/11/24Team MemberRelationshipSpecialtyStart DateEnd Date Jef Ramirez, DO [address] [place] [facility] [place] [address] PCP - General09/11/24Team MemberRelationshipSpecialtyStart DateEnd Date Jef Ramirez, DO [address] [place] [facility] [place] [address] PCP - General09/11/24Team MemberRelationshipSpecialtyStart DateEnd Date Jef Ramirez, DO [address] [place] [facility] [place] [address] PCP - General09/11/24Team MemberRelationshipSpecialtyStart DateEnd Date Jef Ramirez, DO [address] [place] [facility] [place] [address] PCP - General09/11/24Team MemberRelationshipSpecialtyStart DateEnd Date Jef Ramirez, DO [address] [place] [facility] [place] [phone] PCP - General09/11/24Te MemberRelationshipSpecialtyStart DateEnd Date Jef Ramirez, DO [address] [place] [facility] [place] [phone] PCP - General09/11/24Team MemberRelationshipSpecialtyStart DateEnd Date Jef Ramirez, DO [address] [place] [facility] [place] [address] PCP - General09/11/24Te MemberRelationshipSpecialtyStart DateEnd Date Jef Ramirez, DO [address] [place] [facility] [place] [phone] PCP - General09/11/24 Goals (unrecognized section and [...] BE BASED ON THE PRIMARY CLINICAL RECORDS. [facility] [employer] [facility]. provides no warranty or guarantee of the accuracy or completeness of information in this document.
== END 2025-07-15 14:22 | disposition home or self-care (01) ==
LOC: LAB 14:21
PROVIDERS: PCP Family Medicine; Visit Provider Nurse Practitioner Family
DX: Z34.93 Encounter for supervision of normal pregnancy, unspecified, third trimester (principal)
CPT/HCPCS: 87081

== ENCOUNTER 2025-08-03 23:22 | Inpatient (IN) | payer MEDICAID, SELFPAY ==
--- OUTSIDE RECORDS SUMMARY | 2019-03-13 04:00 | XMS_ITS | Continuity of Care Document ---
Author Organization [facility] Address [address] [place] [address] Phone Care Team Providers Care Procurement Coordinator Name Role Phone Ralph Santillan DDS Unavailable [...] Procedures Procedure Date Extract; Erupted Th/exposted Rt Extract; Erupted Th/exposted Rt 019 Panoramic Film [...] Diagnoses Date Provider Providers Copied on Encounter [facility], [address] [place] [address], [id number], [place] tel:[phone] Dental Clinic Extractions (chief complaint) Encounter for screening for dental disorders 9 Tyrell Rosas. [address] [place], [place], [id number], [place]. tel:[phone] [facility], [address] [place] [address], [id number], [place] tel:[phone] Dental Clinic Encounter for screening for dental disorders 9 Lisa Oviedo. [address] [place], [place], [id number], [place]. tel:[phone] [facility], [address] [place] [address], [id number], [place] tel:[phone] [facility] No Information 9-201 8 Kristofer Steven. [address] [place], [place], [id number], [place]. tel:[phone] OFFICE/OUTPAT IENT VISIT, [facility], [address] [place], [place], [id number], [place] tel:[phone] [facility] Routine PN Visit (chief complaint) No Information 1- 4 Ken [facility] Mitali. [address] [place], [place], [id number], [place]. tel:[phone] OFFICE/OUTPAT IENT VISIT, [facility], [address] [place], [place], [id number], [place] tel:[phone] [facility] Routine PN Visit (chief complaint) No Information 7- 4 [facility] Mitali. [address] [place], [place], [id number], [place]. tel:[phone] OFFICE/OUTPAT IENT VISIT, [facility], [address] [place], [place], [id number], [place] tel:[phone] [facility] Routine PN Visit (chief complaint) No Information 3- 4 [facility] Mitali. [address] [place], [place], [id number], [place]. tel:[phone] OFFICE/OUTPAT IENT VISIT, [facility], [address] [place], [place], [id number], [place] tel:[phone] [facility] Interview (chief complaint) Influenza Vaccine 8- 4 [facility] Mitali. [address] [place], [place], [id number], [place]. tel:[phone] OFFICE/OUTPAT IENT VISIT, [facility], [address] [place], [place], [id number], [place] tel:[phone] [facility] Supervision of other normal 2-201 4 [facility] Mitali. [address] [place], [place], [id number], [place]. tel:[phone] [facility], [address] [place], [place], [id number], tel:[phone] [facility] No Information 2 Tara Cunningham. [address] [place], [place], [id number], . tel:[phone] Family History Family Member Type Diagnosis Age [...] tion(s) D [place] [facility] [place] [id number] [place] [employer] [place] [id number] [place] Wrap - [facility] [place] [id number] Social History Type Description Quantity Date Captured [...] Of Treatment Date Type Action Status Goal Influenza Vaccine. Due on due Goal Tdap. Due on due Goal PAP. Due on due Goal RLP. Due on due Goal Depression screening. Due on due Goal PAP. Due on due Goal Tdap. Due on due Goal Depression screening. Due on due Goal Influenza Vaccine. Due on Oc due Goal RLP. Due on due Goal PAP. Due on due Goal Influenza Vaccine. Due on Oc due Goal Depression screening. Due on due Goal RLP. Due on due Goal Tdap. Due on due History Of Present Illness Encounter Date Complaint History Of Prese nt Illness Extractions Functional Status Date Functional Assessmen t No Information Instructions Date Instruction Additional Infor mation No Information Assessments Type Assessment Date assessment Encounter for screening for dent al disorders Patient Care Teams Name Effective Dates (start - stop) Status Members No Information
--- OUTSIDE RECORDS SUMMARY | 2025-07-21 10:30 | XMS_ITS | Encounter Summary ---
Author Organization [facility] Address [address] [place] [address] Care Team Providers Care Staff Nuclear Weapons Officer Name Role Phone Jef Ramirez Primary Care Provider [phone] Reason for Visit * ReasonCommentsRoutine Visit Encounter Details DateTypeDepartmentCare Team (Latest Contact Info)Elbmuknxxut29/18/2025 10:30 AM ESTRoutine [facility] [address] [place] [phone] Harjeet Mohamud DO [address] [place] [address] Third trimester ([facility]); 37 weeks gestation of ([facility]) Social History Tobacco UseTypesPacks/DayYears UsedDateSmoking Tobacco: Never AssessedPHQ-2 AnswerDate RecordedPatient Health Questionnaire-2 Anizu792 Estimated Date of WsgizaroMyxexuorXth99/08/2025Based on UltrasoundSex and Gender InformationValueDate RecordedSex Assigned at BirthNot on fileLegal SexFemale 11/15/2022 6:46 PM EDTGender IdentityNot on fileSexual OrientationNot on file documented as of this encounter Last Filed Vital Signs Vital SignReadingTime TakenCommentsBlood Jmjixhgm970/7207/21/2025 11:01 AM EST Pulse--Temperature--Respiratory Rate--Oxygen Saturation--Inhaled Oxygen Concentration--Umerrw20 kg (194 lb)07/21/2025 11:01 AM ESTHeight--Body Mass Index32.28002/18/2025 9:53 AM EDTdocumented in this encounter Progress Notes * Esther Leo LPN - 07/21/2025 10:30 AM EST Reason for Appointment: Patient ID: [...] nursing note reviewed. Exam conducted with a instrumentation manager present. Vitals: Estimated body mass index is 32.28 kg/m?? as calculated from the following: Height as of 02/18/25: 5' 5 . Weight as of this encounter: 194 lb. BP: 118/72 Patient's last menstrual period was 10/17/2024. Assessment/Plan ICD-10-CM 1. Third trimester ([facility]) Z34.93 2. 37 weeks gestation of ([facility]) Z3A.37 POCT urinalysis dipstick manually resulted Assessment/Plan Return OB: Patient presents today for a routine obstetrics appointment. Patient is currently 37w1d . Patient states she is doing well [...] documented in this encounter Plan of Treatment Not on file documented as of this encounter Procedures Procedure NamePriorityDate/TimeAssociated DiagnosisCommentsPOCT URINALYSIS WMAOKIDXKoulgcs94/18/2025 11:01 AM EST 37 weeks gestation of ([facility]) documented in this encounter Results * POCT urinalysis dipstick manually resulted (07/21/2025 11:01 AM EST)Component ValueRef RangeTest MethodAnalysis TimePerformed AtPathologist SignatureColor, UAYellowClarity, UAClearGlucose, UANegativeNegative - 1999(110) ++++ mg/dL Bilirubin, UANegativeNegative - 4(70) +++ mg/dLKetones, UANegativeNegative - 160(16) ++++ mg/dLSpec Grav, UA1.0151 - 1.03Blood, UANegativeNegative - 50 Hesham/mcLpH, UA6.55 - 9Protein, UANegativeNegative - 2000(20) ++++ mg/dL Urobilinogen, UA1.00.2 - 12 mg/dLLeukocytes, UANegativeNegative - 500+++ Dary/mcLNitrite, UANegativeNegative - PositiveSpecimen (Source)Anatomical Location / LateralityCollection Method / VolumeCollection TimeReceived Time Urine07/21/2025 11:01 AM EST Narrative Authorizing ProviderResult TypeResult StatusCorey Oneida DOPOINT OF CARE TEST ENTER/EDIT ORDERABLESFinal Result documented in this encounter Visit Diagnoses Diagnosis Third trimester ([facility]) state, incidental 37 weeks gestation of ([facility]) documented in this encounter Care Teams Team MemberRelationshipSpecialtyStart DateEnd Date Jef Ramirez, [address] [place] [phone] PCP - General09/11/24documented as of this encounter
--- OUTSIDE RECORDS SUMMARY | 2025-07-28 10:20 | XMS_ITS | Encounter Summary ---
Author Organization [facility] Address [address] [place] [address] Care Team Providers Care Processing [employer] Supervisor Name Role Phone Jef Ramirez DO Primary Care Provider [phone] Reason for Visit * ReasonCommentsRoutine Visit Encounter Details DateTypeDepartmentCare Team (Latest Contact Info)Ahcoiayisjp61/25/2025 10:20 AM ESTRoutine [facility] [address] [place] [phone] Josseline Andersen PA [address] [place], [id number] Third trimester ([facility]); 38 weeks gestation of ([facility]) Social History Tobacco UseTypesPacks/DayYears UsedDateSmoking Tobacco: Never AssessedPHQ-2 AnswerDate RecordedPatient Health Questionnaire-2 Zodaz453 Estimated Date of JilowggeNxklpyeyOsg74/08/2025Based on UltrasoundSex and Gender InformationValueDate RecordedSex Assigned at BirthNot on fileLegal SexFemale 11/15/2022 6:46 PM EDTGender IdentityNot on fileSexual OrientationNot on file documented as of this encounter Last Filed Vital Signs Vital SignReadingTime TakenCommentsBlood Tvsgdwgt694/7207/28/2025 10:37 AM EST Pulse--Temperature--Respiratory Rate--Oxygen Saturation--Inhaled Oxygen Concentration--Rmifks97 kg (194 lb)07/28/2025 10:37 AM ESTHeight--Body Mass Index32.28002/18/2025 9:53 AM EDTdocumented in this encounter Progress Notes * JORGE Patrick - 07/28/2025 10:20 AM EST Reason for Appointment: Patient ID: Tristen Mccracken is a 30 y.o. female who presents for Routine Visit Patient presents today for Return OB appointment. MEDICATIONS Current Outpatient Medications Medication Instructions BABY ASPIRIN PO Take by mouth MV-Min-Fe Fum-FA-DHA ( 1 PO) 1 tablet, [...] reviewed. Vitals: Estimated body mass index is 32.28 kg/m?? as calculated from the following: Height as of 02/18/25: 5' 5 . Weight as of this encounter: 194 lb. BP: 116/72 Patient's last menstrual period was 10/17/2024. Assessment/Plan ICD-10-CM 1. Third trimester ([facility]) Z34.93 2. 38 weeks gestation of ([facility]) Z3A.38 POCT urinalysis dipstick manually resulted Assessment/Plan Return OB: Patient presents today for a routine obstetrics appointment. Patient is currently 38w1d . Patient states she is doing well [...] this encounter Procedures Procedure NamePriorityDate/TimeAssociated DiagnosisCommentsPOCT URINALYSIS JBOHRGRBFrygkdj40/25/2025 10:45 AM EST 38 weeks gestation of ([facility]) documented in this encounter Results * (ABNORMAL) POCT urinalysis dipstick manually resulted (07/28/2025 10:45 AM EST)ComponentValueRef RangeTest MethodAnalysis TimePerformed AtPathologist SignatureColor, UAYellowClarity, UAClearGlucose, UANegativeNegative - 2000(110) ++++ mg/dLBilirubin, UA1+Negative - 4(70) +++ mg/dLKetones, UA NegativeNegative - 160(16) ++++ mg/dLSpec Grav, UA1.0301 - 1.03Blood, UA NegativeNegative - 50 Hesham/mcLpH, UA6.05 - 9Protein, UAPositiveNegative - 2000(20) ++++ mg/dLComment:TraceUrobilinogen, UA0.20.2 - 12 mg/dLLeukocytes, UAPositiveNegative - 500+++ Dary/mcLComment:1+Nitrite, UANegativeNegative - PositiveSpecimen (Source)Anatomical Location / LateralityCollection Method / VolumeCollection TimeReceived MmpqAogpo34/25/2025 10:45 AM EST Narrative Authorizing ProviderResult TypeResult StatusJosseline Andersen PAPGENERAL [facility] OF CARE TEST ENTER/EDIT ORDERABLESFinal Result documented in this encounter Visit Diagnoses Diagnosis Third trimester ([facility]) state, incidental 38 weeks gestation of ([facility]) documented in this encounter Care Teams Team MemberRelationshipSpecialtyStart DateEnd Date Jef Ramirez [place] [place] [phone] PCP - General09/11/24documented as of this encounter
--- OUTSIDE RECORDS SUMMARY | 2025-08-03 23:26 | XMS_ITS | CCD ---
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 /100{WBC}Normal0-0.5FAdams County Regional Medical CenterComhuron valley-[facility] on above:Performed By: #### HS TROP, CBC, CMP, CK #### [facility] [address] [place] [address] USAPlatelet mean volume (Bld) [Entitic vol]6.9 fLNormal 6.3-10.7FAdams County Regional Medical CenterComment on above:Performed By: #### HS TROP, CBC, CMP, CK #### [place] [address] USAPlatelets (Bld) [#/Vol]277 10*3/lCTkyosw105-879MgpczksttTrinity Health System East CampusComment on above:Performed By: #### HS TROP, CBC, CMP, CK #### [address] [place] [address] USARBC (Bld) [#/Vol]4.20 10*6/uLNormal3.60-5.00[facility] CampusComment on above:Performed By: #### HS TROP, CBC, CMP, CK #### [facility] [address] [place] [address] USAWBC (Bld) [#/Vol]8.9 10*3/uLNormal3.8-11.6FAdams County Regional Medical CenterComment on above:Performed By: #### HS TROP, CBC, CMP, CK #### [place] [address] USAComprehensive Metabolic Panelon 13-51-7796Owfdxxh [Mass/Vol]4.8 g/dLNormal3.5-5.7FAdams County Regional Medical CenterComment on above:Performed By: #### HS TROP, CBC, CMP, CK #### [place] [address] USAAlbumin/Globulin [Mass ratio]1.7 {ratio}NormalTrinity Health System East CampusComment on above:Performed By: #### HS TROP, CBC, CMP, CK #### [place] [address] USAALP [Catalytic activity/Vol]48 U/RQsizhh56-932MxbnnmxbxTrinity Health System East CampusComment on above:Performed By: #### HS TROP, CBC, CMP, CK #### [facility] [address] [place] [address] USAALT [Catalytic activity/Vol]26 U/LNormal7-52Tr[facility] CampusComment on above:Performed By: #### HS TROP, CBC, CMP, CK #### [facility] [address] [place] [address] USAAnion gap [Moles/Vol]18.9 mmol/LHigh6.0-15.0[facility] CampusComment on above:Performed By: #### HS TROP, CBC, CMP, CK #### [place] [address] USAAST [Catalytic activity/Vol]24 U/ZZcxlvg79-05CgqmnoarxTrinity Health System East CampusComment on above:Performed By: #### HS TROP, CBC, CMP, CK #### [facility] [address] [place] [address] USABilirubin [Mass/Vol]0.3 mg/dLNormal0.3-1.0[facility] CampusComment on above:Performed By: #### HS TROP, CBC, CMP, CK #### [facility] [address] [place] [address] USACalcium [Mass/Vol]9.3 mg/dLNormal8.6-10.3FAdams County Regional Medical CenterComment on above:Performed By: #### HS TROP, CBC, CMP, CK #### [facility] [address] [place] [address] USAChloride [Moles/Vol]108 mmol/ZJlqy07-104AfwxzefeuTrinity Health System East CampusComment on above:Performed By: #### HS TROP, CBC, CMP, CK #### [place] [address] USACO2 [Moles/Vol]16.3 mmol/LLow21.0-31.0Tr[facility] CampusComment on above:Performed By: #### HS TROP, CBC, CMP, CK #### [facility] [address] [place] [address] USACreatinine [Mass/Vol]0.54 mg/dLLow0.60-1.20[facility] CampusComment on above:Performed By: #### HS TROP, CBC, CMP, CK #### [place] [address] USACreatinine Clr Calc Phwnsdlk243.65NormalTrinity Health System East CampusComment on above:Result Comment: PERFORMED BY: [place] [address] PATHOLOGIST FITTINGS TIGHTENER ELDER HUFF M.D.Performed By: #### HS TROP, CBC, CMP, CK #### [place] [id number] USAGFR/1.73 sq M.predicted MDRD (S/P/Bld) [Vol rate/Area] mL/min/{1.73_m2}NormalTrinity Health System East CampusComment on above: Performed By: #### HS TROP, CBC, CMP, CK #### [facility] [address] [place] [address] USAGlobulin (S) [Mass/Vol]2.9 g/dLNormalTrinity Health System East CampusComment on above:Performed By: #### HS TROP, CBC, CMP, CK #### [facility] [address] [place] [address] USAGlucose [Mass/Vol]160 mg/iJBgqt92-152QptdzwjyjTrinity Health System East CampusComment on above:Result Comment: Random Glucose Reference Range is dependent on time and content of last meal. Glucose of more than 200 mg/dL in a nonstressed, ambulatory subject supports the diagnosis of Diabetes Mellitus. ADA recommended reference rangePerformed By: #### HS TROP, CBC, CMP, CK #### [facility] [address] [place] [address] USAPotassium [Moles/Vol]3.2 mmol/LLow3.5-5.1FAdams County Regional Medical CenterComment on above:Performed By: #### HS TROP, CBC, CMP, CK #### [facility] [address] [place] [address] USAProtein [Mass/Vol]7.7 g/dLNormal6.4-8.9[facility] CampusComment on above:Performed By: #### HS TROP, CBC, CMP, CK #### [facility] [address] [place] [address] USASodium [Moles/Vol]140 mmol/VDuwjtl967-900CtaaroafdTrinity Health System East CampusComment on above:Performed By: #### HS TROP, CBC, CMP, CK #### [facility] [address] [place] [address] USAUrea nitrogen [Mass/Vol]19 mg/dLNormal7-25Tr[facility] CampusComment on above:Performed By: #### HS TROP, CBC, CMP, CK #### [facility] [address] [place] [id number] USACreatine Kinaseon 62-13-1206SU [Catalytic activity/Vol]112 U/HXbogis45-878PpyqjxbumTrinity Health System East CampusComment on above:Performed By: #### HS TROP, CBC, CMP, CK #### [facility] [address] [place] [address] USACreatine kinase [Enzymatic activity/volume] in Serum or PlasmaOrdered By: Caron Ribeiro on 44-10-0890EP [Catalytic activity/Vol]112 U/L [facility] CampusCreatinine [Mass/volume] in Serum or PlasmaOrdered By: Caron Ribeiro on 17-56-0256Ggxwnqabwq [Mass/Vol]0.54 mg/dL 0.60-1.20[facility] CampusDrug Screen,Urineon 11-18-2022 Amphetamine Screen,UrineNegativeNormalNegativeTrinity Health System East Campus Comment on above:Performed By: #### URDS, CG, UA #### [place] [address] USABarbiturate Screen,UrineNegativeNormalNegativeTrinity Health System East CampusComment on above:Performed By: #### URDS, CG, UA #### [place] [address] USABenzodiazepines Screen,UrineNegativeNormalNegative [facility] CampusComment on above:Performed By: #### URJORGE A, CG, UA #### [place] [address] USACannabinoid Screen,UrinePositiveHighNegativeTrinity Health System East CampusComment on above:Result Comment: These are unconfirmed results and should not be used for legal purposes. Drug Cut-Off Concentration: AMPH 1000 ng/mL NOEMI 200 ng/mL EVER 200 ng/mL COCM 300 ng/mL OP 300 ng/mL PCP 25 ng/mL THC 20 ng/mL PERFORMED BY: [place] [address] PATHOLOGIST FITTINGS TIGHTENER ELDER HUFF M.D.Performed By: #### URDS, UHCG, UA #### [facility] [address] [place] [address] USACocaine Screen,UrineNegativeNounc health wayneNegWVUMedicine Barnesville HospitalComment on above:Performed By: #### URDS, UHCG, UA #### [facility] [address] [place] [address] USAOpiate Screen,UrineNegativeNormdcNegWVUMedicine Barnesville HospitalComment on above:Performed By: #### URDS, UHCG, UA #### [facility] [address] [place] [address] USAPhencyclidine Screen,UrineNegativeTrinity Health System Twin City Medical CenterComment on above:Performed By: #### URDS, UHCG, UA #### [facility] [address] [place] [address] USAECG 12 lead ECGon 84-28-9195LMD 12 lead [facility] [place] [address] [place] [address] Electrocardiograph Report Signed Patient: Tristen Mccracken MR#: [id number] 0 : 1995 Acct:[id number] Age/Sex: 27 / F ADM Date: 11/18/22 Loc: ER Room: Type: [facility] ER Attending Dr: Ordering Provider: Caron Ribeiro Jr, [...] ECGs available Confirmed by CARON RIBEIRO MD ([id number]) on 11/18/2022 7:42:29 AM Referred By: Electronically Signed By:CARON RIBEIRO MD Transcribed By: MUS Signed By Craon Ribeiro Jr, [place] [id number] City HospitalEosinophils Auto (Bld) [#/Vol] Ordered By: Caron Ribeiro on 38-29-6626Wwuqvdajopj (Bld) [#/Vol]0.1 10*3/uL 0.0-0.45[facility] CampusEosinophils/100 WBC Auto (Bld)Ordered By: Caron Ribeiro on 57-08-5128Ifirejpsuew/100 WBC (Bld)0.7 %.[facility] CampusErythrocyte distribution width Auto (RBC) [Ratio]Ordered By: Caron Ribeiro on 20-25-6994Tyzhotmyiew distribution width (RBC) [Ratio]12.9 % 11.9-15.3FAdams County Regional Medical CenterEthanol [Mass/volume] in Serum or PlasmaOrdered By: Caron Ribeiro on 77-53-6446Pozqxbl [Mass/Vol]246 mg/dL [facility] CampusEthanol [Mass/Vol]0.246 %[facility] CampusEthyl Alcohol Profileon 43-41-3639Ziiskry [Mass/Vol]246 mg/dL [facility] City HospitalComment on above:Performed By: #### HS TROP, CBC, CMP, CK #### [facility] [address] [place] [address] USAPercent Ethanol0.246 %[facility]ville City HospitalComment on above:Result Comment: PERFORMED BY: [place] [address] PATHOLOGIST FITTINGS TIGHTENER ELDER HUFF M.D.Performed By: #### HS TROP, CBC, CMP, CK #### [facility] [address] [place] [address] USAGlobulin Calc (S) [Mass/Vol]Ordered By: Caron Ribeiro on 94-69-4810Zsyqymcj (S) [Mass/Vol]2.9 g/dLTrinity Health System East Campus Glucose [Mass/volume] in Serum or PlasmaOrdered By: Caron Ribeiro on 11-18-2022 Glucose [Mass/Vol]160 mg/pG97-315XqwbfsdywTrinity Health System East CampusComment on above:ADA recommended reference rangeRandom Glucose Reference Range is dependent on time and content of last meal. Glucose of more than 200 mg/dL in a nonstressed, ambulatory subject supports the diagnosisof Diabetes Mellitus.HCG ( test) IA.rapid Ql (U)Ordered By: Caron Ribeiro on 82-98-3417VAQ ( test) Ql (U)NegativeTrinity Health System East CampusHCG,Urineon 69-38-4360Dfwx HCG ( test) Ql (U)NegativeNormalTrinity Health System East CampusComment on above:Order Comment: Name Collection Type:: Patricia CatheterResult Comment: PERFORMED BY: [facility] [address] [place] [address] PATHOLOGIST FITTINGS TIGHTENER ELDER HUFF M.D.Performed By: #### URDS, CG, UA #### [place] [address] USAHematocrit Auto (Bld) [Volume fraction]Ordered By: Caron Ribeiro on 40-40-2706Zfoplbguoo (Bld) [Volume fraction]38.0 %34.0-46.4FAdams County Regional Medical CenterHemoglobin [Mass/volume] in BloodOrdered By: Caron Ribeiro on 58-20-7554Ogaguaayfa (Bld) [Mass/Vol]12.9 g/dL11.8-15.4FAdams County Regional Medical CenterKetones Auto test strip (U) [Mass/Vol]Ordered By: Caron Ribeiro on 22-24-1407Ukbulfz (U) [Mass/Vol]NegativeNegativeTrinity Health System East CampusLaboratory - Chemistry and Chemistry - challengeOrdered By: Caron Ribeiro on 54-10-9194NLM/1.73 sq M.predicted MDRD (S/P/Bld) [Vol rate/Area] mL/min/{1.73_m2}[facility] CampusLaboratory - CoagulationOrdered By: Caron Ribeiro on 80-88-0512VA Coag (PPP) [Time]10.9 s9.0-12.9[facility] CampusLeukocytes [#/volume] corrected for nucleated erythrocytes in Blood by Automated counOrdered By: Caron Ribeiro on 11-18-2022 WBC corrected for nucl RBC Auto (Bld) [#/Vol]8.9 10*3/uL3.8-11.6FAdams County Regional Medical CenterLymphocytes Auto (Bld) [#/Vol]Ordered By: Caron Ribeiro on 13-83-8729Ycuqfuyifko (Bld) [#/Vol]2.7 10*3/uL1.00-4.8[facility] CampusLymphocytes/100 WBC Auto (Bld)Ordered By: Caron Ribeiro on 16-06-3814Eosmimkmlmm/100 WBC (Bld)29.8 %.[facility] Auto (RBC) [Entitic mass]Ordered By: Caron Ribeiro on 59-42-7471YWJ (RBC) [Entitic mass]30.8 pg24.7-34.3FAdams County Regional Medical CenterMCHC Auto (RBC) [Mass/Vol]Ordered By: Caron Ribeiro on 10-31-3216KBKI (RBC) [Mass/Vol]34.0 g/dL 32.0-35.0[facility] CampusMCV Auto (RBC) [Entitic vol]Ordered By: Caron Ribeiro on 82-22-8078IQJ (RBC) [Entitic vol]90.6 bM23-328GemjollshTrinity Health System East CampusMonocyte distribution width [Entitic volume] in Blood by AutomatedOrdered By: Caron Ribeiro on 82-44-1686Npmvltxb distribution width Auto (Bld) [Entitic vol]17.76 %0.00-20.00[facility] CampusMonocytes Auto (Bld) [#/Vol]Ordered By: Caron Ribeiro on 20-26-6068Rgzbhbtqe (Bld) [#/Vol] 0.5 10*3/uL0.0-0.8[facility] CampusMonocytes/100 WBC Auto (Bld) Ordered By: Caron Ribeiro on 78-37-6729Lcoojbxfv/100 WBC (Bld)5.1 %.[facility] System [facility] CampusNeutrophils Auto (Bld) [#/Vol]Ordered By: Caron Ribeiro on 30-87-3575Dfdpnvsgajz (Bld) [#/Vol]5.7 10*3/uL1.8-7.7FAdams County Regional Medical CenterNeutrophils/100 WBC Auto (Bld)Ordered By: Caron Ribeiro on 36-97-0269Axkuppndxwh/100 WBC (Bld)63.9 %.[facility] Nitrite Test strip Ql (U)Ordered By: Caron Ribeiro on 52-67-7628Digloly Ql (U) NegativeNegWVUMedicine Barnesville HospitalNo Panel InformationOrdered By: Caron Ribeiro on 34-92-1902Wqgbgnao Creatinine Clearance (Ggtg348.65[facility] CampusNucleated erythrocytes [Presence] in Blood by Automated countOrdered By: Caron Ribeiro on 09-53-0444Mjnpilnve RBC Auto Ql (Bld)0.1 /100{WBC}0-0.5FAdams County Regional Medical CenterOpiates [Presence] in Urine by Screen methodOrdered By: Caron Ribeiro on 20-69-0809Repstid Screen Ql (U) NegativeNegWVUMedicine Barnesville HospitalPartial Thromboplastin Timeon 38-37-0941uUYC Coag (Bld) [Time]25.0 sLow25.1-36.5FAdams County Regional Medical CenterComment on above:Result Comment: PERFORMED BY: [place] [address] PATHOLOGIST FITTINGS TIGHTENER ELDER HUFF M.D.Performed By: #### HS TROP, CBC, CMP, CK #### [place] [address] USAPhencyclidine Screen Ql (U)Ordered By: Caron Ribeiro on 49-80-1545Hrdjdhuxgcyla Ql (U)NegativeNegWVUMedicine Barnesville Hospital Platelet mean volume Auto (Bld) [Entitic vol]Ordered By: Caron Ribeiro on 68-35-8816Blwxepza mean volume (Bld) [Entitic vol]6.9 fL6.3-10.7FAdams County Regional Medical CenterPlatelet poor plasma international normalized ratio (INR) by coagulation assay (relatOrdered By: Caron Ribeiro on 29-56-8188HHA Coag (PPP) [Relative time]0.9 {INR}[facility] CampusComment on above:INR Therapeutic Range A) Pre- and [...] Auto (Bld) [#/Vol]Ordered By: Caron Ribeiro on 80-27-7255Hxfpqpcmo (Bld) [#/Vol] 277 10*3/uD936-160FlyiupojmTrinity Health System East CampusPotassium [Moles/volume] in Serum or PlasmaOrdered By: Caron Ribeiro on 10-22-1781Wnefdjfao [Moles/Vol]3.2 mmol/L3.5-5.1FAdams County Regional Medical CenterProtein Auto test strip (U) [Mass/Vol]Ordered By: Caron Ribeiro on 61-83-6605Hvilrqa (U) [Mass/Vol]Negative NegativeTrinity Health System East CampusProtein [Mass/volume] in Serum or PlasmaOrdered By: Caron Ribeiro on 95-60-2898Bolnoqv [Mass/Vol]7.7 g/dL6.4-8.9 [facility] CampusProthrombin Time INRon 48-76-9233WYJ Coag (PPP) [Relative time]0.9 {INR}NormalTrinity Health System East CampusComment on above:Result Comment: INR Therapeutic Range A) [...] #### HS TROP, CBC, CMP, CK #### [facility] [address] [place] [address] USAPT Coag (PPP) [Time]10.9 sNormal9.0-12.9[facility] CampusComment on above:Performed By: #### HS TROP, CBC, CMP, CK #### [facility] [address] [place] [address] USARBC Auto (Bld) [#/Vol]Ordered By: Caron Ribeiro on 51-16-9738HKT (Bld) [#/Vol]4.20 10*6/uL3.60-5.00[facility] Medical Centererum or plasma albumin/globulin mass ratioOrdered By: Caron Ribeiro on 62-77-0436Ffvdtup/Globulin [Mass ratio]1.7 {ratio}[facility] Medical Centererum or plasma anion gap determinationOrdered By: Caron Ribeiro on 81-43-9749Irdhi gap [Moles/Vol]18.9 mmol/L6.0-15.0[facility] Medical Centerodium [Moles/volume] in Serum or PlasmaOrdered By: Caron Ribeiro on 83-20-7134Wjjeee [Moles/Vol]140 mmol/T506-686DnfgndnriTrinity Health System East Campus Specific gravity Auto test strip (U) [Rel density]Ordered By: Caron Ribeiro on 77-33-9372Lmddgjle gravity (U) [Rel density]1.0061.001-1.030[facility] CampusTroponin I High Sensitivityon 66-45-1609Mxkfwwhr I High Sensitivity2.6 pg/mLNormal0.0-15.0[facility] CampusComment on above:Result Comment: PERFORMED BY: [place] [address] PATHOLOGIST FITTINGS TIGHTENER ELDER HUFF M.D.Performed By: #### HS TROP, CBC, CMP, CK #### [facility] [address] [place] [address] USATroponin I.cardiac [Mass/volume] in Serum or Plasma by Detection limit <= 0.01 ng/Ordered By: Caron Ribeiro on 16-34-7703Pfrinukz I.cardiac DL <= 0.01 ng/mL [Mass/Vol]2.6 pg/mL0.0-15.0[facility] CampusUrea nitrogen [Mass/volume] in Serum or PlasmaOrdered By: Caron Ribeiro on 64-14-8111Sydl nitrogen [Mass/Vol]19 mg/dL7-25[facility] East CampusUrinalysison 62-70-4414Deyopquxak (U)ClearNormalClearTrinity Health System East CampusComment on above:Order Comment: Name Collection Type:: Patricia CatheterPerformed By: #### URDS, UHCG, UA #### [facility] [address] [place] [address] USABilirubin,UrineNegativeNormalNegativeTrinity Health System East CampusComment on above:Order Comment: Name Collection Type:: Patricia CatheterPerformed By: #### URDS, UHCG, UA #### [facility] [address] [place] [id number] USAColor (U)YellowNormalYellowTrinity Health System East CampusComment on above:Order Comment: Name Collection Type:: Patricia Catheter Performed By: #### URDS, UHCG, UA #### [facility] [address] [place], [place] [address] USAGlucose Ql (U)NormalNormalNormMcKitrick HospitalComment on above:Order Comment: Name Collection Type:: Patricia Catheter Performed By: #### URDS, UHCG, UA #### [facility] [address] [place] [address] USAKetones Ql (U)NegativeNormalNegWVUMedicine Barnesville HospitalComment on above:Order Comment: Name Collection Type:: Patricia CatheterPerformed By: #### URDS, UHCG, UA #### [facility] [address] [place] [address] USALeukocyte esterase Test strip Ql (U)NegativeNormalBrown Memorial HospitalComment on above:Order Comment: Name Collection Type:: Patricia CatheterPerformed By: #### URDS, UHCG, UA #### [facility] [address] [place], [place] [address] USANitrite,UrineNegativeNormalNegativeTrinity Health System East CampusComment on above:Order Comment: Name Collection Type:: Patricia CatheterPerformed By: #### URDS, UHCG, UA #### [facility] [address] [place], [place] [address] USAOccult Blood,UrineNegativeNormalNegWVUMedicine Barnesville HospitalComment on above:Order Comment: Name Collection Type:: Patricia CatheterPerformed By: #### URDS, UHCG, UA #### [facility] [address] [place] [address] USApH (U)5.5 [pH]Normal5.0-9.0[facility] CampusComment on above:Order Comment: Name Collection Type:: Patricia Catheter Performed By: #### URDS, UHCG, UA #### [facility] [address] [place] [address] USAProtein,UrineNegativeNormalNegativeTrinity Health System East CampusComment on above:Order Comment: Name Collection Type:: Patricia CatheterPerformed By: #### URDS, UHCG, UA #### [facility] [address] [place] [address] USASpecificy Jes[place],Urine1.966Rprrop0.001-1.030[facility] CampusComment on above:Order Comment: Name Collection Type:: Patricia CatheterPerformed By: #### URDS, UHCG, UA #### [facility] [address] [place] [id number] USAUrobilinogen,UrineNormalNormalNormalTrinity Health System East CampusComment on above:Order Comment: Name Collection Type:: Patricia CatheterPerformed By: #### URDS, UHCG, UA #### [facility] [address] [place] [address] USAUrine clarity by refractometry automatedOrdered By: Caron Ribeiro on 22-57-4937Nrkeilp Refractometry automated (U)ClearCleSelect Medical Specialty Hospital - ColumbusUrine glucose measurement by automated test strip (mass/volume)Ordered By: Caron Ribeiro on 34-54-6622Gwuzrtp Auto test strip (U) [Mass/Vol]Normal mg/dLNoSelect Medical Specialty Hospital - AkronUrine hemoglobin detection by automated test stripOrdered By: Caron Ribeiro on 11-18-2022 Hemoglobin Auto test strip Ql (U)NegativeNegativeTrinity Health System East CampusUrine leukocyte esterase detection by automated test stripOrdered By: Caron Ribeiro on 41-97-5450Irpokotsg esterase Auto test strip Ql (U)Negative NegativeTrinity Health System East CampusUrobilinogen Auto test strip (U) [Mass/Vol]Ordered By: Caron Ribeiro on 92-44-5666Aplwpnhpyhqs (U) [Mass/Vol] Normal mg/dLNoSelect Medical Specialty Hospital - AkronWBC Auto (Bld) [#/Vol]Ordered By: Caron Ribeiro on 11-45-8337BNO (Bld) [#/Vol]8.9 10*3/uL3.8-11.6FAdams County Regional Medical CenterXR chest 1V portableon 39-68-4720GP chest 1V portable [facility] [place] [address] XRay Report Signed Patient: Tristen Mccrakcen MR#: [id number] 0 : 1995 Acct:[id number] Age/Sex: 27 / F ADM Date: 11/18/22 Loc: ER Room: Type: [facility] ER Attending Dr: Copies to: Caron [...] Mandeep Chowdhury M.D.11/18/2022 11:25 AM Dictation Location: [place] [address] Transcribed By: [facility] 11/18/22 1125 Dictated By: Mandeep Chowdhury II, MD 11/18/22 1124 Signed By: 11/18/22 1125NoSelect Medical Specialty Hospital - AkronpH Auto test strip (U) Ordered By: Caron Ribeiro on 73-90-8249pQ (U)5.5 [pH]5.0-9.0[facility] CampusXR CSPINE 2_3 VIEWSon 83-78-9638JB CSPINE 2_3 VIEWSEXAMINATION: XR CSPINE 2_3 VIEWS [...] Electronically authenticated by: JESENIA MOBLEY Date: 2020-08-03 15:03[facility] Vital Signs Date TimeVital SignValuePerforming BvwqdmielOxpnnqsk78-53-3964 11:43-0500Body mass index (BMI) [Ratio]32.25 kg/j4Ztjqz Oneida DO Work Phone: [phone] [place], [place] [address]Orcptcfaui89-14-4134 11:43-0500Body shpbet79.91 kgCorey Oneida DO Work Phone: [phone])[facility] [place], [place] [address]Iiziinzwud08-83-5986 11:43-0500Diastolic blood rybccgkk83 mm[Hg]Gilmer Oneida DO Work Phone: [phone] [place], [place] [address]Jxlkwxapwd59-11-9274 11:43-0500Systolic blood mwtgnnny279 mm[Hg]Gilmer Oneida DO Work Phone: [phone])[facility] [place], [place] [address]Gqkehkrxvb81-53-8323 13:58-0400Body mass index (BMI) [Ratio]31.45 kg/t0Nisqa Oneida DO Work Phone: [phone] [place], [place] [address]Didiikikse43-35-6271 13:58-0400Body uecygb59.73 kgCorey Oneida DO Work Phone: [phone] [place], [place] [address]Zdldlesarj04-71-8599 13:58-0400Diastolic blood zicgrkpc16 mm[Hg]Gilmer Oneida DO Work Phone: [phone])[facility] [place], [place] [address]Vrhmqqaahx06-81-4256 13:58-0400Systolic blood fbmdeezt092 mm[Hg]Gilmer Oneida DO Work Phone: [phone] [place], [place] [address]10-06-2025 09:05-0400Body mass index (BMI) [Ratio]32.18 kg/t7KfxaivbyMervat Hall TELEPHONE MECHANIC Work Phone: [phone] [place], [place] [address]Peuzowxfyz24-04-6035 09:05-0400Body sqamhc12.73 kgMervat Hall NP Work Phone: [facility] HospitalWyfytzjroa57-30-8820 09:05-0400Diastolic blood jksyxcga42 mm[Hg]Mervat Rafael TELEPHONE MECHANIC Work Phone: [facility] HospitalFmltkaidex01-94-8600 09:05-0400Systolic blood ybdgmivs604 mm[Hg]Mervat Rafael TELEPHONE MECHANIC Work Phone: [facility] HospitalIujohwzxpc27-22-0297 13:48-0400Body mass index (BMI) [Ratio]31.09 kg/m2Amy Amrit PA Work Phone: [facility] HospitalHwdpduzyja62-30-1977 13:48-0400Body azcwik79.73 kgAmy Amrit PA Work Phone: [facility] HospitalZrzktfmpsa11-69-0507 13:48-0400Diastolic blood fimrcffg52 mm[Hg]Josseline Andersen PA Work Phone: [facility] HospitalOurrmiwpil85-60-3122 13:48-0400Systolic blood xuzykbry738 mm[Hg]Josseline Andersen PA Work Phone: [facility] HospitalMckgfeofhh60-88-2084 16:17-0400Body mass index (BMI) [Ratio]29.39 kg/m2Amy Amrit PA Work Phone: [facility] HospitalZhgaiwjjcw65-35-4507 16:17-0400Body wpinpa66.11 kgAmy Amrit PA Work Phone: [facility] HospitalEtzdeggfst13-76-9577 16:17-0400Diastolic blood vebiwxzb62 mm[Hg]Josseline Andersen PA Work Phone: [facility] HospitalCzucdcuqzs93-83-7426 16:17-0400Systolic blood xwmhlhvo295 mm[Hg]Josseline Andersen PA Work Phone: [facility] HospitalWdtuhoorak72-94-5098 09:47-0400Body mass index (BMI) [Ratio]28.76 kg/w1Xvrxv Oneida DO Work Phone: [facility] HospitalMyomznwpem25-10-3110 09:47-0400Body .38 kgCorey Oneida DO Work Phone: [facility] HospitalEuttnqvbwc33-18-9861 09:47-0400Diastolic blood kkybucis96 mm[Hg]Gilmer Oneida DO Work Phone: 1([phone] [place], [place] [address]Eofefclvfp66-35-7293 09:47-0400Systolic blood akuuonqz962 mm[Hg]Gilmer Oneida DO Work Phone: 1(352)098-[address] [place], [place] [address]Ucruxvxdqb80-75-1070 09:53-0400Body .1 Parth Amrit PA Work Phone: 1([phone])602-[address] [place], [place] [address]Nhibcxzlzk58-17-1603 09:47-0400Body mass index (BMI) [Ratio]28.12 kg/m2Josseline Amrit PA Work Phone: [phone] [place], [place] [address]Mznpfvxmkg81-96-7255 09:47-0400Body dlcpra29.66 kgJosseline Amrit PA Work Phone: 1(761)453-[address] [place], [place] [address]Adteossqtm51-14-3491 09:47-0400Diastolic blood ktmcfuxa22 mm[Hg]Josseline Amrit PA Work Phone: 1([phone])148-[address] [place], [place] [address]Cegtsgvjxs70-73-2515 09:47-0400Systolic blood tmtobafw288 mm[Hg]Josseline Amrit PA Work Phone: 1(490)338-[address] [place], [place] [address]Vduvhtxycp73-90-5737 11:45-0400Body clbizu80.41 kgCorey Oneida DO Work Phone: 1(368)304-[address] [place], [place] [address]Bsnlqxmawg06-78-6644 11:45-0400Diastolic blood tgqayljx61 mm[Hg]Gilmer Oneida DO Work Phone: 1(620)374-[address] [place], [place] [address]Lpnlkahhju11-23-7319 11:45-0400Systolic blood fdybsmxf877 mm[Hg]Gilmer Oneida DO Work Phone: 1(915)238-[address] [place], [place] [address]Cbyhfqtfir15-53-7432 10:37-0400Body aikbym52.47 [facility]No[facility]01-[facility]-2025 11:50-0500Body culyin93.85 kgCorey Oneida DO Work Phone: 1(223)260-[address] [place], [place] [address]Jxxgtvhjww25-61-8764 11:50-0500Diastolic blood mm[Hg]Gilmer Oneida DO Work Phone: no[facility] HospitalSywdqisnmj15-17-2162 11:50-0500Systolic blood qzfnulsb844 mm[Hg]Gilmer Segoviao DO Work Phone: [facility] HospitalXkkdcgfdto13-49-1609 06:23-0400Diastolic blood twiqrfwb10 mm[Hg]MD Caron Ribeiro Jr Work Phone: [facility]03-18-2023 06:23-0400 Heart rate90 /minMD Caron Ribeiro Jr Work Phone: 1(038)209-[address] [place], [place] 2935603-18-2023 06:23-0400 Respiratory rate18 /minMD Caron Ribeiro Jr Work Phone: 1(311)587-[address] [place], [place] 2935603-18-2023 06:23-0400 SaO2% (BldA) [Mass fraction]99 %MD Caron Ribeiro Jr Work Phone: 1(728)608-[address] [place], [place] 2935603-18-2023 06:23-0400 Systolic blood bvnsbrew61 mm[Hg]MD Caron Ribeiro Jr Work Phone: [facility]03-18-2023 04:33-0400 Body drfuseuqzty07.8 [degF]MD Caron Ribeiro Jr Work Phone: [facility]03-18-2023 03:19-0400 Inhaled oxygen flow rate2 L/minMD Caron Ribeiro Jr Work Phone: [facility]03-18-2023 00:42-0400 Body gmmqyh849.72 cmMD Caron Ribeiro Jr Work Phone: [facility]03-18-2023 00:42-0400 Body .2 kgMD Caron Ribeiro Jr Work Phone: [facility] Encounters Encounter DateEncounter TypeCare ProviderFacilityStart: 07-15-2025 End: 26-21-4925Jnqzbh Vishal Hall NP Work Phone: [facility] Sohail OBGYNStart: 07-15-2025 End: 58-40-5889Owsedn flowsOmkar Hall TELEPHONE MECHANIC Work Phone: [facility] Sohail OBGYNStart: 07-15-2025 End: 71-24-2914sqrzqhjjdxENNUSHJD EBERLYNot AvailableStart: 07-08-2025 End: 66-03-2115Fwhhnn flowsheetCorey Oneida DO Work Phone: [facility] S[facility]ail OBGYNStart: 07-08-2025 End: 97-53-0185Jknkya flowsheetCorey Oneida DO Work Phone: [facility] Sohail OBGYNStart: 07-08-2025 End: 19-52-4332tnbswcjcxwOMBLW FAZIONot AvailableStart: 07-08-2025 End: 78-25-3044Tohydr outpatient visit 15 minutesCorey Oneida DO Work Phone: [facility] Sohail OBGYNComment on above:Third trimester ([facility]); 35 weeks gestation of ([facility])Start: 07-06-2025 End: 21-21-6054Mfvnkqnyv Result EncounterCorey Oneida DO Work Phone: [facility] External Department UnsolicitedStart: 07-06-2025 End: 81-22-7546Lqituhxne Result EncounterCorey Oneida DO Work Phone: [facility] External Department UnsolicitedStart: 06-22-2025 End: 63-01-6366Tucomd outpatient visit 15 minutesCorey Oneida DO Work Phone: [facility] Girard OBGYNComment on above:Third trimester ([facility]); 33 weeks gestation of ([facility])Start: 06-22-2025 End: 84-04-0117suncduxlcpOLGOL FAZIONot AvailableStart: 06-08-2025 End: 97-49-7476Lxrxyf flowsheetMervat Hall TELEPHONE MECHANIC Work Phone: [facility] OBGYNStart: 06-08-2025 End: 49-30-4638Pkmewy flowsOmkar Hall TELEPHONE MECHANIC Work Phone: [facility] OBGYNStart: 06-08-2025 End: 31-05-2057dlpmrossdhEYQKKZVE EBERLYNot AvailableStart: 06-08-2025 End: 17-38-2499Gemyjk outpatient visit 15 minutesMervat Hall TELEPHONE MECHANIC Work Phone: [facility] Sohail OBGYNComment on above: size inconsistent with dates ([facility]) (Primary Dx); 31 weeks gestation of ([facility]); Third trimester ([facility])Start: 05-19-2025 End: 30-96-3988Ijilfy Liseth PATEL Work Phone: [facility]ail OBGYNStart: 05-19-2025 End: 45-63-0363Gwtupu flowsheetJosseline PATEL Work Phone: [facility] OBGYNStart: 05-19-2025 End: 68-99-3342Umrcce outpatient visit 15 minutesAmy Amrit PATEL Work Phone: [facility] Sohail OBGYNComment on above:Third trimester ([facility]); 28 weeks gestation of ([facility])Start: 05-19-2025 End: 80-55-0800lknjvkvqwyKNV RAMEYNot AvailableStart: 04-27-2025 End: 23-64-4970Wmssbhqoe Result EncounterJosseline PATEL Work Phone: [facility] External Department UnsolicitedStart: 04-27-2025 End: 44-16-0038Ypyrthpwe Result EncounterJosseline PATEL Work Phone: [facility] External Department UnsolicitedStart: 04-22-2025 End: 21-56-4083xpnbupdcpoQIW RAMEYNot AvailableStart: 04-22-2025 End: 87-99-4492Vhgzha outpatient visit 15 minutesJosseline PATEL Work Phone: [facility] Sohail OBGYNComment on above:Second trimester ([facility]); 24 weeks gestation of ([facility]); Diabetes mellitus screening; Restless legStart: 04-22-2025 End: 37-79-1847Xrzmeu flowsDarshana PATEL Work Phone: [facility] OBGYNStart: 04-22-2025 End: 23-67-3014Ysmwbm flowsDarshana PATEL Work Phone: [facility] OBGYNStart: 03-23-2025 End: 36-89-5149Swihde outpatient visit 15 minutesCorey Oneida DO Work Phone: [facility] BCP OBComment on above:20 weeks gestation of ([facility]); Second trimester ([facility])Start: 03-23-2025 End: 67-43-7425jeomtzlaxzJGRGX FAZIONot AvailableStart: 02-18-2025 End: 90-37-9917Hvlasd flowsDarshana PATEL Work Phone: NOST BCP OBStart: 02-18-2025 End: 57-95-8703Nprvon flowsDarshana PATEL Work Phone: [facility] BCP OBStart: 02-18-2025 End: 06-67-4206Yxptvhrrs Result EncounterJosseline PATEL Work Phone: [facility] External Department UnsolicitedStart: 02-18-2025 End: 21-94-0709Ikkjbpif Result EncounterJosseline PATEL Work Phone: [facility] External Department UnsolicitedStart: 02-18-2025 End: 32-24-8032Fiapsp outpatient visit 15 minutesJosseline PATEL Work Phone: [facility] BCP OBComment on above:Well woman exam with routine gynecological exam; Exposure to STD; Need for maternal serum alpha-protein (MSAFP) screening ([facility]); Second trimester ([facility]); 15 weeks gestation of ([facility]); Screening, , for anatomic survey ([facility])Start: 02-18-2025 End: 47-22-6152Fftqgfz encounter procedureAmy Amrit PATEL Work Phone: [facility] HealthcareStart: 02-18-2025 End: 87-52-1928xsoxrvmnkuBKN Kateryna AvailableStart: 01-28-2025 End: 62-47-4268Mwrdwx flowsheetCorey Oneida DO Work Phone: [facility] BCP OBStart: 01-28-2025 End: 15-40-8969Dpxnud flowsheetCorey Oneida DO Work Phone: [facility] BCP OBStart: 01-28-2025 End: 28-44-1507fcbggrbexoSYFSX FAZIONot AvailableStart: 01-28-2025 End: 97-28-7374Yyxkhj outpatient visit 15 minutesCorey Oneida DO Work Phone: [facility] BCP OBComment on above:First trimester ; 12 weeks gestation of pregnancyStart: 01-09-2025 End: 61-93-2362Xlwzxmaoy Result EncounterCorey Oneida DO Work Phone: [facility] External Department UnsolicitedStart: 01-09-2025 End: 97-30-9074Moibooymg Result EncounterCorey Oneida DO Work Phone: noMS External Department UnsolicitedStart: 01-09-2025 End: 18-66-5732Rqhaty outpatient visit 5 minutesNoms Bcp Ob Oneida NurseNOMS BCP OBComment on above:GA: 3m2oCvrbq: 01-09-2025 End: 88-23-0215ejeriyjumaAXPVB FAZIONot AvailableStart: 09-11-2024 End: 80-41-8580Hnzvrzk encounter procedureCorey Oneida DO Work Phone: [facility] BCP OBComment on above:Encounter for IUD removal Start: 09-11-2024 End: 24-62-6974puegnjzweuODFRK FAZIONot AvailableStart: 11-18-2022 End: 27-79-1291Wwdjwiymy department patient visitJef Hernandezcility:[facility] Centertart: 11-18-2022 End: 49-72-1614Eussdregk department patient visitMD Caron Ribeiro Jr Work Phone: [facility] Work Phone: Start: 08-03-2020 End: 39-83-4912Vobgdtx encounter procedureDOCTOR MISCFacility:H1 Procedures DateProcedureProcedure DetailPerforming ClinicianStart: 30-16-8762Bfrdu dip stick/tablet rgnt non-auto w/o micrscpCorey Oneida DO Work Phone: Start: 44-72-2364IYP UA (CLEAN/CATCH) WIRE INSPECTOR/MICRO IF IND.Gilmer Oneida DO Work Phone: Start: 27-35-9743Kipqs dip stick/tablet rgnt non-auto w/o micrscpCorey Oneida DO Work Phone: Start: 63-75-9315Pvize dip stick/tablet rgnt non-auto w/o micrscpMervat Hall NP Work Phone: Start: 05-55-5438REY CBC WITH AUTO Zuri PATLE Work Phone: Start: 73-14-2875Lctat dip stick/tablet rgnt non-auto w/o micrscSundeep PATEL Work Phone: Start: 14-78-2533Pezho dip stick/tablet rgnt non-auto w/o micrscpCorey Oneida DO Work Phone: Start: 94-35-7514YAQXVPNAZ VAGINITIS (HTRX)Josseline PATEL Work Phone: Start: 97-01-0146Mjedi dip stick/tablet rgnt non-auto w/o micrscSundeep PATEL Work Phone: Start: 23-40-3426NZS,APTIMA HPV,AGE GDLNJosseline PATEL Work Phone: Start: 01-88-4376Iurad dip stick/tablet rgnt non-auto w/o micrscpCorey Oneida DO Work Phone: Start: 52-21-0966ZPI CBC WITH AUTO DIFFCorey Oneida DO Work Phone: Start: 01-09-2025 End: 11-60-2922Yhqfa dip stick/tablet rgnt non-auto w/o micrscpCorey Oneida DO Work Phone: Start: 44-16-3805BHS REMOVALCorey Oneida DO Work Phone: Plan of Treatment DateCare ActivityDetailAuthorStart: 07-16-2025 End: 78-75-1452Dcmhyrm encounter /13/2025 11:20 AM EST Routine [facility] [address] [place] [address] Mervat Hall, TELEPHONE MECHANIC [address] [place] [address] [facility] Girard OBGYNStart: 07-08-2025 End: 45-16-4826Yuoynpe encounter wjsfamvij53/05/2025 11:20 AM EST Routine [facility] [address] [place] [address] Gilmer Mohamud, DO [address] [place] [address] [facility] Sohail OBGYNStart: 06-08-2025 End: 40-81-4174MW for pregnancyUS OB follow up transabdominal approach Imaging Routine size inconsistent with dates ([facility]) Expected: 06/08/2025, Expires: 10/09/2025[facility] Work Phone: comment on above:Expected: 06/08/2025, Expires: 10/09/2025Start: 06-01-2025 End: 51-41-6351Dfrlwtn encounter vxnzbfaei26/29/2025 9:50 AM EDT Routine [facility] [address] [place], [id number] Mervat Hall, CHRISTIE [address] [place] [address] [address] NOMArron MacielSohail OBGYNStart: 05-19-2025 End: 41-91-0718Okvlbiw encounter wyeuyjtff35/16/2025 1:30 PM EDT Routine [facility] [address] [place], [id number] Josseline Andersen PA [address] [place] [address] ArrivedNO Sohail OBGYNComment on above:ArrivedStart: 05-13-2025 End: 75-34-6436Trnqvxn encounter jvueszkvl71/10/2025 3:10 PM EDT Routine [facility] [address] [place], [id number] Gilmer Mohamud DO [address] [place] [address] [address] TIMArron Sohail OBGYNStart: 04-22-2025 End: 26-46-0152TQJ panel - Blood by Automated countCBC Lab Routine Diabetes mellitus screening Expected: 04/22/2025 (Approximate), Expires: 04/22/2026[facility] Work Phone: comment on above:Expected: 04/22/2025 (Approximate), Expires: 04/22/2026Start: 04-22-2025 End: 97-01-1835Vcdfnfjfvtg of glucose 1 hour after glucose challenge for glucose tolerance testGlucose tolerance, 1 hour Lab Routine Diabetes mellitus screening Expected: 04/22/2025 (Approximate), Expires: 04/22/2026NONH HealthcareComment on above:Expected: 04/22/2025 (Approximate), Expires: 04/22/2026Start: 03-23-2025 End: 22-00-3253Epirkmf encounter gljvzyakj84/21/2025 9:40 AM EDT Routine [facility] [address] [place] [address] Gilmer Mohamud, DO [address] [place] [address] [facility] BCP OBStart: 03-23-2025 End: 18-51-1921Frvgdwfgcfod / ancillary services hfkrvvnbke57/21/2025 8:30 AM EDT Ancillary Procedure [facility] [address] [place] [address] [phone] BCP OBStart: 02-18-2025 End: 27-73-8385Rbrgt fetoprotein, maternalAlpha fetoprotein, maternal Lab Routine Need for maternal serum alpha-protein (MSAFP) screening ([facility]) Expected: 02/18/2025 (Approximate), Expires: 03/20/2025[facility] HealthcareComment on above:Expected: 02/18/2025 (Approximate), Expires: 03/20/2025Start: 02-18-2025 End: 47-77-6427LH for pregnancyUS OB 14+ weeks anatomy scan Imaging Routine Screening, , for anatomic survey ([facility]) Expected: 02/18/2025 (Approximate), Expires: 05/21/2025[facility] HealthcareComment on above:Expected: 02/18/2025 (Approximate), Expires: 05/21/2025Start: 02-18-2025 End: 04-99-9953Aznvdqh encounter procedureNOMS BCP OBComment on above:Arrived Start: 02-03-2025 End: 49-07-3655Xnbgznp encounter ctfdgaqul90/03/2025 10:00 AM EDT Office Visit [facility] [address] [place] [phone] Gilmer Mohamud, DO [address] [place] [address] [facility] BCP OBStart: 01-28-2025 End: 51-81-4612Lcezzxo encounter qrafbultw52/28/2025 11:20 AM EDT Routine [facility] [address] [place] [address] Gilmer Mohamud, DO [address] [place] [address] [facility] BCP OBStart: 01-09-2025 End: 39-18-7592OAC/RhABO/Rh Lab Routine Missed menses , unspecified gestational age Expected: 01/09/2025 (Approximate), Expires: 01/09/2026NONH HealthcareComment on above:Expected: 01/09/2025 (Approximate), Expires: 01/09/2026Start: 01-09-2025 End: 18-83-0632Rqhcb type and Indirect antibody screen panel - BloodType and screen Lab Routine Missed menses , unspecified gestational age Expected: 01/09/2025 (Approximate), Expires: 01/09/2026NONH HealthcareComment on above:Expected: 01/09/2025 (Approximate), Expires: 01/09/2026Start: 01-09-2025 End: 56-30-9931Izsso of abuse panel - Urine by Screen methodRapid drug screen, urine Lab Routine , unspecified gestational age Encounter for supervision of normal first in first trimester Expected: 01/09/2025 (Approximate), Expires: 01/09/2026NON[facility] HealthcareComment on above:Expected: 01/09/2025 (Approximate), Expires: 01/09/2026Start: 01-08-2025 End: 84-88-1364GL Pelvis transvaginalUS OB transvaginal Imaging Routine Missed menses Expected: 01/08/2025, Expires: 04/10/2025[facility] Work Phone: comment on above:Expected: 01/08/2025, Expires: 04/10/2025Start: 20-71-4830Tadhr chest X-rayXR chest 1V [facility] Townshiptart: 47-55-1887XQ Chest Single viewCommunity Regional Medical Centertart: 99-34-0687IS cervical spine without contrastCT cervical spine wo [facility] Hospitaltart: 02-57-5050XG Cervical spine WO [facility] Systemtart: 67-17-4098FI of head without contrastCT head/brain [facility] Hospitaltart: 08-07-5281VQ Unspecified body region WO [facility] HospitalBacteria identified in Urine by CultureUrine culture Microbiology Routine Missed menses Ordered: 01/09/2025[facility] HealthcareComment on above:Ordered: 01/09/2025BC W Auto Differential panel - BloodCBC and differential Lab Routine Missed menses , unspecified gestational age Ordered: 01/09/2025[facility] HealthcareComment on above:Ordered: 01/09/2025HLAMYDIA TRACHOMATIS (GENITO/STI)CHLAMYDIA TRACHOMATIS (GENITO/STI) Lab Routine Exposure to STD Ordered: 02/18/2025[facility] HealthcareComment on above:Ordered: 02/18/2025ytology Cervical or vaginal smear or scraping studyPap Smear Pathology and Cytology Routine Well woman exam with routine gynecological exam Ordered: 02/18/2025[facility] HealthcareComment on above: Ordered: 02/18/2025Hemoglobin A1c/Hemoglobin.total in BloodHemoglobin A1c Lab Routine Missed menses , unspecified gestational age Ordered: 01/09/2025 [facility] HealthcareComment on above:Ordered: 01/09/2025Hepatitis B virus surface Ag [Presence] in Serum or Plasma by ImmunoassayHepatitis B surface antigen Lab Routine Missed menses , unspecified gestational age Ordered: 01/09/2025 [facility] HealthcareComment on above:Ordered: 01/09/2025Hepatitis C virus Ab [Presence] in Serum or Plasma by ImmunoassayHepatitis C antibody Lab Routine Missed menses , unspecified gestational age Ordered: 01/09/2025[facility] HealthcareComment on above:Ordered: 01/09/2025HIV-1/HIV-2 antigen/antibody combination immunoassayHIV-1 and HIV-2 antibodies Lab Routine Missed menses , unspecified gestational age Ordered: 01/09/2025[facility] HealthcareComment on above:Ordered: 01/09/2025Neisseria gonorrhoeae DNA [Presence] in Unspecified specimen by GHAZALA with probe detectionNeisseria gonorrhea DNA probe, direct Lab Routine Exposure to STD Ordered: 02/18/2025[facility] HealthcareComment on above: Ordered: 02/18/2025Patient EducationAlcohol Intoxication [facility] Work Phone: Patient [facility] Work Phone: Reagin Ab [Presence] in Serum by RPRRPR Lab Routine Missed menses , unspecified gestational age Ordered: 01/09/2025[facility] HealthcareComment on above:Ordered: 01/09/2025Rubella antibody, IgGRubella antibody, IgG Lab Routine Missed menses , unspecified gestational age Ordered: 01/09/2025[facility] HealthcareComment on above:Ordered: 01/09/2025 SURESWAB(R) ADVANCED VAGINITIS PLUS, TMASURESWAB(R) ADVANCED VAGINITIS PLUS, TMA Pathology and Cytology Routine Exposure to STD Ordered: 02/18/2025[facility] Work Phone: comment on above:Ordered: 02/18/2025US Pelvis transvaginalUS OB transvaginal Imaging Routine Missed menses 01/09/2025 9:45 AM [facility] Payers DatePayer CategoryPayerPolicy [id number] [id number] [id number]-[id number] ..1.735968.3.57[id number] 2..1.618415.3.57[id number] 2..1.212625.3.57[id number] 2.0.1.275087.3.57[id number] 2.16840.1.569052.3.57[id number] 2.0.1.354659.3.57[id number] 2.0.1.196572.3.57[id number] 2..1.238444.3.57[id number] 2..1.007365.3.57[id number] 2..1.334129.3.57[id number] 2..1.812384.3.57[id number] 2.0.1.278880.3.579.2.[id number] 2..1.571803.3.57[id number] 2..1.421021.3.57[id number] 2..1.710259.3.57[id number] 2.0.1.786338.3.579.2.531 Social History DateTypeDetailFacilityStart: 41-90-1370Wkmhoga smoking status NHISUnknown if ever smokedCommunity Regional Medical Centertart: 62-58-5488Xgz Assigned At BirthFeOhioHealth Arthur G.H. Bing, MD, Cancer Centertart: 20-82-1996Skr assigned at birthNot on [facility] HealthcareStart: 31-53-6257Srcqed identityNot on [facility] Work Phone: Start: 13-57-1064GalofobliZEHY HealthcareStart: 69-45-4842Wqadnoi of Social functionSullivan County Memorial Hospital Work Phone: Start: 93-72-3304VhjAtauzoEMRE Healthcare Clinical Notes 09-11-2024 to 07-08-2025 Note Date & FbdxLnbgAecnlfen66-55-7292 History of Present illness Narrative* Esther Felipa, CHANDA - 07/08/2025 11:20 AM EST Reason for [...] nursing note reviewed. Exam conducted with a aquarium specialist present. Vitals: Estimated body mass index is 32.25 kg/m as calculated from the following: Height as of 02/18/25: 5' 5 . Weight as of this encounter: 193 lb 12.8 oz. BP: 108/70 Patient's last menstrual period was 10/17/2024. Assessment/Plan ICD-10-CM 1. Third trimester ([facility]) Z34.93 2. 35 weeks gestation of ([facility]) Z3A.35 POCT urinalysis dipstick manually resulted [...] of: Gilmer Mohamud DO documented in this encounterSullivan County Memorial HospitalFtauxovpki44-45-6721 History of Present illness Narrative* Mervat Hall [...] nursing note reviewed. Exam conducted with a aquarium specialist present. Vitals: Estimated body mass index is 31.45 kg/m as calculated from the following: Height as of 02/18/25: 5' 5 . Weight as of this encounter: 189 lb. BP: 110/70 Patient's last menstrual period was 10/17/2024. Assessment/Plan ICD-10-CM 1. Third trimester ([facility]) Z34.93 2. 33 weeks gestation of ([facility]) Z3A.33 POCT urinalysis dipstick manually resulted [...] VAGINAL DELIVERY x2 2014&2017 documented in this encounterSullivan County Memorial HospitalTifmiwesed60-29-5233 History of Present illness Narrative* Mervat Hall [...] nursing note reviewed. Exam conducted with a aquarium specialist present. Vitals: Estimated body mass index is 32.18 kg/m as calculated from the following: Height as of 02/18/25: 5' 5 . Weight as of this encounter: 193 lb 6.4 oz. BP: 118/78 Patient's last menstrual period was 10/17/2024. ASSESSMENT & PLAN ICD-10-CM 1. 31 weeks gestation of ([facility]) Z3A.31 POCT urinalysis dipstick manually resulted 2. Third trimester ([facility]) Z34.93 Return OB: Patient presents today [...] of: Mervat Hall NP documented in this encounterSullivan County Memorial HospitalSuypbbmije92-28-4368 History of Present illness Narrative* JORGE Patrick [...] ASSESSMENT & PLAN ICD-10-CM 1. Third trimester ([facility]) Z34.93 2. 28 weeks gestation of ([facility]) Z3A.28 Return OB: Patient presents today [...] behalf of: JORGE Patrick documented in this encounterSullivan County Memorial HospitalSdwcudpvph75-80-5330 History of Present illness Narrative* JORGE Patrick [...] ASSESSMENT & PLAN ICD-10-CM 1. Second trimester ([facility]) Z34.92 POCT urinalysis dipstick manually resulted 2. 24 weeks gestation of ([facility]) Z3A.24 POCT urinalysis dipstick manually resulted [...] behalf of: JORGE Patrick documented in this encounterSullivan County Memorial [id number] History of Present illness Narrative* [facility] [...] nursing note reviewed. Exam conducted with a aquarium specialist present. Vitals: Estimated body mass index is 28.76 kg/m as calculated from the following: Height as of 02/18/25: 5' 5 . Weight as of this encounter: 172 lb 12.8 oz. BP: 118/70 Patient's last menstrual period was 10/17/2024. ASSESSMENT & PLAN ICD-10-CM 1. 20 weeks gestation of ([facility]) Z3A.20 POCT urinalysis dipstick manually resulted 2. Second trimester ([facility]) Z34.92 POCT urinalysis dipstick manually resulted [...] of: Gilmer Mohamud DO documented in this encounterSullivan County Memorial [id number] History of Present illness Narrative* JORGE Patrick [...] nursing note reviewed. Exam conducted with a aquarium specialist present. Vitals: Estimated body mass index is [...] Need for maternal serum alpha-protein (MSAFP) screening ([facility]) Z36.1 Alpha fetoprotein, maternal Alpha fetoprotein, maternal 4. Second trimester ([facility]) Z34.92 POCT urinalysis dipstick manually resulted 5. 15 weeks gestation of ([facility]) Z3A.15 6. Screening, , for anatomic survey ([facility]) Z36.89 US OB 14+ weeks anatomy [...] nursing note reviewed. Exam conducted with a aquarium specialist present. Vitals: Estimated body mass index is [...] Need for maternal serum alpha-protein (MSAFP) screening ([facility]) Z36.1 Alpha fetoprotein, maternal Alpha fetoprotein, maternal 4. Second trimester ([facility]) Z34.92 POCT urinalysis dipstick manually resulted 5. 15 weeks gestation of ([facility]) Z3A.15 6. Screening, , for anatomic survey ([facility]) Z36.89 US OB 14+ weeks anatomy scan Return OB/Annual Exam: Patient presents today for a annual exam/routine obstetrics appointment. Patient is currently 02e7uzxtgwpvj. Patient states she is doing well but [...] behalf of: JORGE Patrick documented in this encounterSullivan County Memorial HospitalHhquokeknh95-28-8286 History of Present illness Narrative* Esther Leo LPN - 01/28/2025 11:20 AM EDT Reason for [...] nursing note reviewed. Exam conducted with a aquarium specialist present. Vitals: There is no height or [...] or undercooked meat, and stay away from [facility]. Patient has been consulted regarding any further do's and don'tsof . Patient voiced understanding and all questions and concerns were answered. Orders Placed This Encounter Procedures POCT urinalysis dipstick manually resulted Follow Up: Patient is to return in 4 weeks for routine OB appointment. Documented by Esther Leo LPN on behalf of: Gilmer Mohamud DO documented in this encounterSullivan County Memorial HospitalBimqfkhbxv09-20-1737 History of Present illness Narrative* Isbael Adair, PROFILER - 01/09/2025 10:00 AM EDT Reason for [...] or undercooked meat, and stay away from [facility]. Patient has also been advised to [...] by: Isabel Adair LPN documented in this encounterSullivan County Memorial HospitalAeapggtoxt97-34-2262 History of Present illness Narrative* Mitali Tavares [...] nursing note reviewed. Exam conducted with a aquarium specialist present. Vitals: There is no height or [...] of: Gilmer Mohamud DO documented in this encounterNOMS HealthcareEvaluation noteNo assessment information availableFairfield Medical Center Work Phone: Evaluation note* Diagnosis Encounter for [...] Need for maternal serum alpha-protein (MSAFP) screening ([facility]) Second trimester ([facility]) state, incidental 15 weeks gestation of ([facility]) Screening, , for anatomic survey ([facility]) Encounter for anatomic survey documented in this encounter [facility] HealthcareEvaluation note* Diagnosis 20 weeks gestation of ([facility]) Second trimester ([facility]) state, incidental documented in this encounter [facility]* Diagnosis Second trimester ([facility]) state, incidental 24 weeks gestation of ([facility]) Diabetes mellitus screening Screening for diabetes mellitus Restless leg Restless legs syndrome (RLS) documented in this encounter [facility] note* Diagnosis Third trimester ([facility]) state, incidental 28 weeks gestation of ([facility]) documented in this encounter [facility] HealthcareEvaluation note* Diagnosis size inconsistent with dates ([facility])- Primary 31 weeks gestation of ([facility]) Third [...] if you have any further problems or concerns.[facility] Work Phone: Summary Purpose Family History No Family History Records FoundNo Family History Records FoundNo Family History Records Found Advance Directives Advance Directive Response Recorded Date/ Time Advance Directives No November 18, 023 1:04am Chief Complaint and Reason for Visit Chief Complaint AMS Additional Source Comments INFORMATION SOURCE (unrecogn ized section and content) DATE CREATED AUTHOR 08/05/2020 [facility] DATE CREATED AUTHOR AUTHOR'S ORGANIZ ATION 11/29/2022 [facility] DATE CREATED AUTHOR AUTHOR'S ORGANIZ ATION 07/17/2025 [facility] EPIC Care Teams (unrecognized sec tion and content) Team Status: Active Member Role Status Dates Jef Ramirez DO Primary Care Provider Active Team Status: Inactive Member Role Status Dates Caron Ribeiro Jr, MD Emergency Provider Active Loly Serrano Care ProviderActiveTeam MemberRelationshipSpecialtyStart DateEnd Date Jef Ramirez MD [address] [facility] [place] [address] PCP - General09/11/24Team MemberRelationshipSpecialtyStart DateEnd Date Jef Ramirez, DO [address] [facility] [place] [address] PCP - General09/11/24Team MemberRelationshipSpecialtyStart DateEnd Date Jef Ramirez, DO [address] [facility] [place] [address] PCP - General09/11/24Team MemberRelationshipSpecialtyStart DateEnd Date Jef Ramirez, DO [address] [facility] [place] [address] PCP - General09/11/24Team MemberRelationshipSpecialtyStart DateEnd Date Jef Ramirez, DO [address] [facility] [place] [address] PCP - General09/11/24Team MemberRelationshipSpecialtyStart DateEnd Date Jef Ramirez, DO [address] [facility] [place] [address] PCP - General09/11/24Team MemberRelationshipSpecialtyStart DateEnd Date Jef Ramirez, DO [address] [facility] [place] [address] PCP - General09/11/24Team MemberRelationshipSpecialtyStart DateEnd Date Jef Ramirez, DO [address] [facility] [place] [address] PCP - General09/11/24Team MemberRelationshipSpecialtyStart DateEnd Date Jef Ramirez, DO [address] [facility] [place] [address] PCP - General09/11/24Team MemberRelationshipSpecialtyStart DateEnd Date Jef Ramirez, DO [address] [facility] [place] [address] PCP - General09/11/24Team MemberRelationshipSpecialtyStart DateEnd Date Jef Ramirez, DO [address] [facility] [place] [address] PCP - General09/11/24Team MemberRelationshipSpecialtyStart DateEnd Date Jef Ramirez, DO [address] [facility] [place] [address] PCP - General09/11/24Team MemberRelationshipSpecialtyStart DateEnd Date Jef Ramirez, DO [address] [facility] [place] [address] PCP - General09/11/24 Goals (unrecognized section and [...] BE BASED ON THE PRIMARY CLINICAL RECORDS. [facility], [facility]. provides no warranty or guarantee of the accuracy or completeness of information in this document.
--- OUTSIDE RECORDS SUMMARY | 2025-08-03 23:27 | XMS_ITS | Encounter Summary ---
Author Organization [facility] Address [address] [place] [address] Care Team Providers Care Pulpit Operator Name Role Phone Jef Ramirez DO Primary Care Provider [phone] Encounter Details DateTypeDepartmentCare Team (Latest Contact Info)Ainduxlnlmh54/18/2025Bamboo flowsheet [facility] [address] [address] Harjeet Mohamud DO [address] Cadence Sauceda, [facility]11 Social History Tobacco UseTypesPacks/DayYears UsedDateSmoking Tobacco: Never AssessedPHQ-2 AnswerDate RecordedPatient Health Questionnaire-2 Kevbq632 Estimated Date of CcnjyqvjZcqyuukmDvv13/08/2025Based on UltrasoundSex and Gender InformationValueDate RecordedSex Assigned at BirthNot on fileLegal SexFemale 11/15/2022 6:46 PM EDTGender IdentityNot on fileSexual OrientationNot on file documented as of this encounter Plan of Treatment Not on file documented as of this encounter Visit Diagnoses Not on filedocumented in this encounter Care Teams Team MemberRelationshipSpecialtyStart DateEnd Date Jef Ramirez DO [address] [place] [address] PCP - General09/11/24documented as of this encounter
--- OUTSIDE RECORDS SUMMARY | 2025-08-03 23:27 | XMS_ITS | Encounter Summary ---
Author Organization [facility] Address [address] [place] [address] Care Team Providers Care Box Office Manager Name Role Phone Jef Ramirez DO Primary Care Provider [phone] Encounter Details DateTypeDepartmentCare Team (Latest Contact Info)Laesffndrxw77/25/2025bstract [facility] [address] [place] [address] Harjeet Mohamud DO [address] Cadence Sauceda, [facility]11 Social History Tobacco UseTypesPacks/DayYears UsedDateSmoking Tobacco: Never AssessedPHQ-2 AnswerDate RecordedPatient Health Questionnaire-2 Onmli113 Estimated Date of GzjkgxysKhxujitqPit50/08/2025Based on UltrasoundSex and Gender InformationValueDate RecordedSex Assigned at BirthNot on fileLegal SexFemale 11/15/2022 6:46 PM EDTGender IdentityNot on fileSexual OrientationNot on file documented as of this encounter Plan of Treatment Not on file documented as of this encounter Visit Diagnoses Not on filedocumented in this encounter Care Teams Team MemberRelationshipSpecialtyStart DateEnd Date Jef Ramirez DO [address] [place] [address] PCP - General09/11/24documented as of this encounter
--- OUTSIDE RECORDS SUMMARY | 2025-08-03 23:27 | XMS_ITS ---
Author Organization [facility] Source Produ ction (ClinicalSummary Clone) Address Unknown Care Team Providers Care Fabric Worker Foreman Name Role Phone Unavailable Primary Care Physician Unavailab le Results * [UNITY] ANEUPLOIDY NIPT Performed by: Textic Component Value Range Date Fraction 10.5% 01/16/2025 09:06 pm UTCRh(D) NIPTRhD JHIBHJIJ55/16/2025 09:06 pm UTCSex Chromosome AneuploidyNOT EKBSSVRA94/16/2025 09:06 pm UTCMonosomy XLOW RISK <1 in , 09:06 pm UTCTrisomy 13LOW RISK <1 in , 09:06 pm UTCTrisomy 18LOW RISK <1 in , 09:06 pm UTCTrisomy 21LOW RISK <1 in , 09:06 pm UTCFetal EvpUPLV5001/16/2025 09:06 pm UTCPregnancy TgybmvhmwQHAWBOKIX35/16/2025 09:06 pm UTCFor detailed report, see PDFSee PDF 01/16/2025 09:06 pm UTC01/16/2025 09:06 pm UTC Social History Observation Value Start Date End Date
--- OUTSIDE RECORDS SUMMARY | 2025-08-03 23:27 | XMS_ITS | Encounter Summary ---
Author Organization [facility] Address [address] [place] [address] Care Team Providers Care Cleaner Laboratory Equipment Name Role Phone Jef Ramirez DO Primary Care Provider [phone] Encounter Details DateTypeDepartmentCare Team (Latest Contact Info)Dwmkwhiupls54/25/2025Bamboo flowsheet [facility] [address] [place] [address] Josseline Andersen PA [address] [place], [facility]11 Social History Tobacco UseTypesPacks/DayYears UsedDateSmoking Tobacco: Never AssessedPHQ-2 AnswerDate RecordedPatient Health Questionnaire-2 Qjddq373 Estimated Date of DsrwwkjnUcqhucwdRqv97/08/2025Based on UltrasoundSex and Gender InformationValueDate RecordedSex Assigned at BirthNot on fileLegal SexFemale 11/15/2022 6:46 PM EDTGender IdentityNot on fileSexual OrientationNot on file documented as of this encounter Plan of Treatment Not on file documented as of this encounter Visit Diagnoses Not on filedocumented in this encounter Care Teams Team MemberRelationshipSpecialtyStart DateEnd Date Jef Ramirez DO [address] [place] [address] PCP - General09/11/24documented as of this encounter
--- OUTSIDE RECORDS SUMMARY | 2025-08-03 23:27 | XMS_ITS | Clinical Summary ---
Author Organization [facility] Address [address] [place] [address] Care Team Providers Care Shuttle Final Inspector Name Role Phone Jef Ramirez DO Primary Care Provider [phone] Allergies No known active allergies Medications MedicationSigDispense QuantityRefillsLast FilledStart DateEnd DateStatus MV-Min-Fe Fum-FA-DHA ( 1 PO) Take 1 tablet by mouth DailyActive BABY ASPIRIN PO Take by mouthActive magnesium oxide (Mag-Ox) 400 MG tablet Indications:Restless legTake 1 tablet (400 mg) by mouth Daily 30 tablet 11004/22/07867809/27/2024Discontinued Active Problems ProblemNoted DateDiagnosed DateIrregular lnadmrhw98/18/2023Estimated Date of DwemmcdbMvapcefxHmc46/08/2025ased on Ultrasound Encounters DateTypeDepartmentCare XvbiFbphdktcaid75/25/2025 10:20 [place] [address] Josseline Andersen PA Third trimester ([facility]); 38 weeks gestation of ([facility])07/28/2025bstract [facility] [address] [place] [address] Harjeet Mohamud DO 07/28/2025amboo flowsheet [facility] [address] [place] [address] Josseline Andersen PA 07/21/2025 10:30 [place] [phone] Harjeet Mohamud, DO Third trimester ([facility]); 37 weeks gestation of ([facility])07/21/2025amboo flowsheet [facility] [address] [place] [address] Harjeet Mohamud, DO 07/15/2025 11:20 AM ESTRoutine [facility] [address] [place] [phone] Mervat Hall, CHRISTIE 36 weeks gestation of ([facility]); Third trimester ([facility]); Restless leg5Clinisync Result Encounter NOM[facility] External Department Unsolicited Mervat Hall, CHRISTIE 07/15/2025Patient Outreach [facility] [address] [place] [address] Josseline Hastings LPN 07/15/2025amboo flowsheet [facility] [address] [place] [address] Mervat Hall NP 07/10/2025bstract [facility] [address] [place] [address] [place] [address] Harjeet Mohamud, DO 07/08/2025 11:20 AM ESTRoutine [facility] [address] [place] [address] Harjeet Mohamud, Third trimester ([facility]); 35 weeks gestation of ([facility])07/08/2025amboo flowsheet [facility] [address] [place] [phone] Harjeet Mohamud, 5Clinisync Result Encounter NOMS External Department Unsolicited Harjeet Mohamud, DO 07/06/2025Telephone [facility] [address] [place] [address] [place] [address] Harjeet Mohamud, 06/22/2025 1:30 PM EDTRoutine [facility] [address] [place] [address] Harjeet Mohamud, DO Third trimester ([facility]); 33 weeks gestation of ([facility])06/22/2025 1:00 PM EDTAncillary Procedure [facility] [address] [place] [address] [place] [address] size inconsistent with dates ([facility])06/16/2025Patient Outreach [facility] [address] [place] [address] Josseline Hastings LPN 06/15/2025bstract [facility] [address] [place] [address] [place] [address] Harjeet Mohamud, 06/12/2025bstract [facility] [address] [place] [address] Josseline Hastings LPN 06/08/2025 9:00 AM EDTRoutine [facility] [address] [place] [address] Mervat Hall NP size inconsistent with dates ([facility]) (Primary Dx); 31 weeks gestation of ([facility]); Third trimester ([facility])06/08/2025amboo flowsheet [facility] [address] [place] [address] Mervat Hall NP 05/19/2025 1:30 PM EDTRoutine [facility] [address] [place] [address] Josseline Andersen, PA Third trimester ([facility]); 28 weeks gestation of ([facility])5Bamboo flowsheet [facility] [address] [place] [address] Josseline Andersen PA from Last 3 Months Social History Tobacco UseTypesPacks/DayYears UsedDateSmoking Tobacco: Never AssessedPHQ-2 AnswerDate RecordedPatient Health Questionnaire-2 Jsvts304 Estimated Date of MpxwovxcOpwxytzgUwm80/08/2025Based on UltrasoundSex and Gender InformationValueDate RecordedSex Assigned at BirthNot on fileLegal SexFemale 11/15/2022 6:46 PM EDTGender IdentityNot on fileSexual OrientationNot on file Last Filed Vital Signs Vital SignReadingTime TakenCommentsBlood Uzugmkcx248/7207/28/2025 10:37 AM EST Pulse--Temperature--Respiratory Rate--Oxygen Saturation--Inhaled Oxygen Concentration--Zhnlkw91 kg (194 lb)07/28/2025 10:37 AM ZNYIxdfkc353.1 cm (5' 5 ) 02/18/2025 9:53 AM EDTBody Mass Index32.28002/18/2025 9:53 AM EDT Plan of Treatment Not on file Procedures Procedure NamePriorityDate/TimeAssociated DiagnosisCommentsPOCT URINALYSIS WUMSKCIEHftddrt54/25/2025 10:45 AM EST 38 weeks gestation of ([facility]) POCT URINALYSIS IZOTJRSNGoxosew87/18/2025 11:01 AM EST 37 weeks gestation of ([facility]) POCT URINALYSIS VURLEYHBFnbqkin33/12/2025 11:45 AM EST 36 weeks gestation of ([facility]) Third trimester ([facility]) STREP GP B CULTURE+NPHQQaixrjz07/12/2025 11:31 AM EST POCT URINALYSIS LHCTDWLMRwyknit39/05/2025 11:49 AM EST 35 weeks gestation of ([facility]) GWRAWZOSZsvsprs17/03/2025 12:12 PM EST [facility] (CLEAN/CATCH) LINK TRAINER/MICRO IF IND.Bpgrcri1507/06/2025 12:00 PM EST POCT URINALYSIS YPHTVILIMufvacz79/20/2025 2:07 PM EDT 33 weeks gestation of ([facility]) US OB FOLLOW UP TRANSABDOMINAL YREHUUBFHlvwshw59/20/2025 1:40 PM EDT size inconsistent with dates ([facility]) POCT URINALYSIS DFMRXGFPLfelyco42/06/2025 9:21 AM EDT 31 weeks gestation of ([facility]) from Last 3 Months Results * (ABNORMAL) POCT urinalysis dipstick manually resulted (07/28/2025 10:45 AM EST) Only the most recent of6 resultswithin the time period is included. ComponentValueRef RangeTest MethodAnalysis TimePerformed AtPathologist Signature Color, UAYellowClarity, UAClearGlucose, UANegativeNegative - 2000(110) ++++ mg/dLBilirubin, UA1+Negative - 4(70) +++ mg/dLKetones, UANegativeNegative - 160(16) ++++ mg/dLSpec Grav, UA1.0301 - 1.03Blood, UANegativeNegative - 50 Hesham/mcLpH, UA6.05 - 9Protein, UAPositiveNegative - 2000(20) ++++ mg/dLComment: TraceUrobilinogen, UA0.20.2 - 12 mg/dLLeukocytes, UAPositiveNegative - 500+++ Dary/mcLComment:1+Nitrite, UANegativeNegative - PositiveSpecimen (Source) Anatomical Location / LateralityCollection Method / VolumeCollection Time Received TxfzCzjin23/25/2025 10:45 AM EST Narrative Authorizing ProviderResult TypeResult StatusMassachusetts Mental Health Center OF CARE TEST ENTER/EDIT ORDERABLESFinal Result * STREP GP B CULTURE+RFLX (07/15/2025 11:31 AM EST)ComponentValueRef RangeTest MethodAnalysis TimePerformed AtPathologist SignatureSTREP GP B CULTURE+RFLX ??Strep Gp B Culture+Rflx TBHSTREP GP B CULTURE+RFLXNegativeTBHSTREP GP B CULTURE+RFLXCenters for Disease Control and Prevention (CDC) andTBHSTREP GP B CULTURE+RFLXAmerican Congress of Obstetricians and GynecologistsTBHSTREP GP B CULTURE+RFLX(ACOG) guidelines for prevention of group BTBHSTREP GP B CULTURE+RFLXstreptococcal (GBS) disease specify co-collection ofTBHSTREP GP B CULTURE+RFLXa vaginal and rectal swab specimen to maximizeTBHSTREP GP B CULTURE+RFLXsensitivity of GBS detection. Per the CDC and ACOG,TBHSTREP GP B CULTURE+RFLXswabbing both the lower vagina and rectumTBHSTREP GP B CULTURE+RFLXsubstantially increases the yield of detectionTBHSTREP GP B CULTURE+RFLXcompared with sampling the vagina alone.TBH STREP GP B CULTURE+RFLXPenicillin G, ampicillin, or cefazolin are indicatedTBH STREP GP B CULTURE+RFLXfor intrapartum prophylaxis of GBSTBHSTREP GP B CULTURE+RFLXcolonization. Reflex susceptibility testing should beTBHSTREP GP B CULTURE+RFLXperformed prior to use of clindamycin only on GBSTBHSTREP GP B CULTURE+RFLXisolates from penicillin-allergic women who areTBHSTREP GP B CULTURE+RFLXconsidered a high risk for anaphylaxis. Treatment withTBHSTREP GP B CULTURE+RFLXvancomycin without additional testing is warranted ifTBHSTREP GP B CULTURE+RFLXresistance to clindamycin is noted.TBHSTREP GP B CULTURE+RFLX Performed at: - LabBeaumont HospitalTBHSTREP GP B CULTURE+[id number] [place], [place] [id number] GP B CULTURE+RFLXLab Director: Pedro Luis Anders PhD, Phone: [phone] (Source)Anatomical Location / Laterality Collection Method / VolumeCollection TimeReceived Time11/08/2025 11:31 AM EST 07/15/2025 2:24 PM EST Narrative [facility]INISY[facility] - 07/19/2025 6:08 PM EST Authorizing ProviderResult TypeResult StatusKristina Rafael NPLAB BLOOD ORDERABLESFinal ResultPerforming OrganizationAddressCity/State/ZIP CodePhone Number [place] * AMNISURE (07/06/2025 12:12 PM EST)ComponentValueRef RangeTest MethodAnalysis TimePerformed AtPathologist SignatureTBH AMNISURENEGATIVENEGATIVETBHSpecimen (Source)Anatomical Location / LateralityCollection Method / VolumeCollection TimeReceived Time07/06/2025 12:12 PM EST07/06/2025 12:18 PM EST Narrative [facility]IN[facility] - 07/06/2025 12:35 PM EST Authorizing ProviderResult TypeResult StatusCorey Oneida DOLAB BLOOD ORDERABLES Final ResultPerforming OrganizationAddressCity/State/ZIP CodePhone Number [place] * [facility] UA (CLEAN/CATCH) LINK TRAINER/MICRO IF IND. (07/06/2025 12:00 PM EST)ComponentValue Ref [...] DOCLINISYNCFinal Result Performing OrganizationAddressCity/State/ZIP CodePhone Number [facility] BOUDREAUXH * OB follow up transabdominal approach (06/22/2025 [...] Lopez MD Authorizing ProviderResult TypeResult StatusMervat Hall NPPIEDMONT [facility]ON [facility] PROCEDURESFinal Result from Last 3 Months Insurance Care Teams Team MemberRelationshipSpecialtyStart DateEnd Date Jef Ramirez DO [address] [place] [address] PCP - General09/11/24
[2025-08-03 23:56] LABS: Hematocrit 31.0 % (36.0-48.0); Hemoglobin 10.5 g/dL (12.0-16.0); Mean Corpuscular HGB Conc 33.9 g/dL (29.9-35.2); Mean Corpuscular Hemoglobin 29.5 pg (26.7-34.0); Mean Corpuscular Volume 87.1 fL (81.0-99.0); Platelet Count 218 10^3/uL (150-450); Red Blood Count 3.56 10^6/uL (4.20-5.40); White Blood Count 7.9 10^3/uL (4.0-11.0)
[2025-08-04] VITALS (58 sets, daily range): BP systolic 95–134; BP diastolic 52–88; PULSE 66–117; TEMP 35.7–36.9
[2025-08-04] MEDS: 0.9 % SODIUM CHLORIDE 1,000 ML 125 ML IV ×2 (00:02→07:58)
[2025-08-04 00:06] LABS: Cannabinoid Screen Urine POSITIVE (NEGATIVE); Methamphetamines Screen Urine NEGATIVE (NEGATIVE); Tricyclic Antidepressant Urine NEGATIVE (NEGATIVE)
[2025-08-04] MEDS: OXYTOCIN/0.9 % SODIUM CHLORIDE 10 UNITS/500 ML PLAST..BAG 6 UNIT IV (00:10)
[2025-08-04] MEDS: ROPIVACAINE HCL/PF 400 MG/200 ML PREMIX 8 MG EPIDURAL (09:45)
[2025-08-04] MEDS: OXYTOCIN/0.9 % SODIUM CHLORIDE 10 UNITS/500 ML PLAST..BAG 48 UNIT IV (12:37)
--- NOTE | 2025-08-04 15:16 | PM.OBPRCVD ---
Procedure Intrapartal events: None Induction method: per pitocin protocol Delivery augmentation: rupture of membranes and pitocin Delivery monitor: external FHT and external uterine Route of delivery: Episiotomy Description: none L&D Laceration Description: none Estimated blood loss (mL): 250 Anesthesia type: Epidural Disposition: floor Delivery date: 08/04/25 Gender: male presentation: vertex Placental delivery description: Spontaneous cord description: 3 Vessels
[2025-08-04] MEDS: OXYTOCIN/0.9 % SODIUM CHLORIDE 20 UNITS/1,000 ML PLAST..BAG 125 UNIT IV (15:28)
[2025-08-04] MEDS: IBUPROFEN 600 MG TABLET PO (16:02)
[2025-08-05 01:06] VITALS: BP 123/72; PULSE 89; TEMP 37.1
[2025-08-05 06:12] LABS: Hematocrit 27.1 % (36.0-48.0); Hemoglobin 8.9 g/dL (12.0-16.0); Immature Granulocytes Abs Auto 0.03 10^3/uL (0.00-0.03); Immature Granulocytes Pct Auto 0.4 % (0.0-0.5); Lymphocytes Absolute Auto 2.1 10^3/uL (1.2-3.8); Mean Corpuscular HGB Conc 32.8 g/dL (29.9-35.2); Mean Corpuscular Hemoglobin 29.3 pg (26.7-34.0); Mean Corpuscular Volume 89.1 fL (81.0-99.0); Platelet Count 184 10^3/uL (150-450); Red Blood Count 3.04 10^6/uL (4.20-5.40); White Blood Count 7.0 10^3/uL (4.0-11.0)
[2025-08-05 09:17] VITALS: BP 133/87; PULSE 66
[2025-08-05] MEDS: IBUPROFEN 600 MG TABLET PO (09:20)
[2025-08-05] MEDS: DOCUSATE SODIUM 100 MG CAPSULE PO (09:21)
[2025-08-05 09:32] VITALS: PULSE 66
--- NOTE | 2025-08-05 12:26 | SWNOTE1 ---
SW consulted due to pt being positive for THC. SW spoke to nurse and pt and father of baby appropriate with baby and the other children in room. Father of this baby is not father to older children. No other concerns. SW met with pt and father of baby. 2 other children in room as well. Pt and father of baby confirmed they do have everything they need at home for baby. Pt's other children children are 7 and 10 years old. The 7 and 10 year old have a different father than the baby. They do have good support at home as well. Pt is breast feeding and voiced baby is doing well. Pt and father of baby attentive to all children while SW in room. SW did ask pt about positive THC drug screen on admission. Pt did admit to taking gummies during . She stated she was very sick during , very nauseous. She attempted Zofran, but this did not help. Pt does not plan on continuing THC use once home. Pt does not have medical marijuana card. SW did let pt and father of baby know that SW is mandated game operator and a report will be made to [facility] CPS. SW advised that CPS may or may not open a case. If they do, they will call pt directly prior to coming to the home. They voiced understanding and no further questions. Referral made to [facility] CPS. HIPAA form completed and sent to Soheila Jenkins.
[2025-08-05 12:52] VITALS: BP 119/68; PULSE 63
[2025-08-05 13:25] VITALS: BP 119/68; PULSE 63; TEMP 36.6
[2025-08-07 23:08] LABS: Carboxy THC Conf, MS, UR 39 ng/mL (Cutoff=10)
== END 2025-08-05 17:50 | disposition home or self-care (01) | DRG 560 ==
PROVIDERS: Admitting Provider Obstetrics & Gynecology; PCP Family Medicine; Visit Provider Obstetrics & Gynecology
DX: O99.324 Drug use complicating childbirth (principal); F12.90 Cannabis use, unspecified, uncomplicated; Z3A.39 39 weeks gestation of pregnancy; Z37.0 Single live birth
CPT/HCPCS: 36415; 59050; 59410; 80307; 80349; 85025; 85027; 86850; 86900; 86901; J2795

== ENCOUNTER 2025-08-10 08:52 | Outpatient (OUT) | payer MEDICAID, SELFPAY ==
--- OUTSIDE RECORDS SUMMARY | 2025-08-10 08:59 | XMS_ITS | CCD ---
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 [place] [address] USAPlatelet mean volume (Bld) [Entitic vol]6.9 fLNormal 6.3-10.7FMarymount HospitalComment on above:Performed By: #### HS TROP, CBC, CMP, CK #### [place] [address] USAPlatelets (Bld) [#/Vol]277 10*3/pYBkazgu152-720JjmuwijsxMorrow County HospitalComment on above:Performed By: #### HS TROP, CBC, CMP, CK #### [address] [place] [address] USARBC (Bld) [#/Vol]4.20 10*6/uLNormal3.60-5.00M[facility] County HospitalComment on above:Performed By: #### HS TROP, CBC, CMP, CK #### [facility] [address] [place] [address] USAWBC (Bld) [#/Vol]8.9 10*3/uLNormal3.8-11.6FMarymount HospitalComment on above:Performed By: #### HS TROP, CBC, CMP, CK #### [place] [address] USAComprehensive Metabolic Panelon 50-36-1143Gajexgd [Mass/Vol]4.8 g/dLNormal3.5-5.7FMarymount HospitalComment on above:Performed By: #### HS TROP, CBC, CMP, CK #### [place] [address] USAAlbumin/Globulin [Mass ratio]1.7 {ratio}NormalMorrow County HospitalComment on above:Performed By: #### HS TROP, CBC, CMP, CK #### [place] [address] USAALP [Catalytic activity/Vol]48 U/IIvjrzw73-252HqeljiimdMorrow County HospitalComment on above:Performed By: #### HS TROP, CBC, CMP, CK #### [facility] [address] [place] [address] USAALT [Catalytic activity/Vol]26 U/LNormal7-52Morrow County HospitalComment on above:Performed By: #### HS TROP, CBC, CMP, CK #### [facility] [address] [place] [address] USAAnion gap [Moles/Vol]18.9 mmol/LHigh6.0-15.0M[facility] County HospitalComment on above:Performed By: #### HS TROP, CBC, CMP, CK #### [place] [address] USAAST [Catalytic activity/Vol]24 U/ZIjylut95-78HkghtsqrpMorrow County HospitalComment on above:Performed By: #### HS TROP, CBC, CMP, CK #### [facility] [address] [place] [address] USABilirubin [Mass/Vol]0.3 mg/dLNormal0.3-1.0M[facility] County HospitalComment on above:Performed By: #### HS TROP, CBC, CMP, CK #### [facility] [address] [place] [address] USACalcium [Mass/Vol]9.3 mg/dLNormal8.6-10.3FMarymount HospitalComment on above:Performed By: #### HS TROP, CBC, CMP, CK #### [facility] [address] [place] [address] USAChloride [Moles/Vol]108 mmol/MHvax99-986PbpuhugmbMorrow County HospitalComment on above:Performed By: #### HS TROP, CBC, CMP, CK #### [place] [address] USACO2 [Moles/Vol]16.3 mmol/LLow21.0-31.0M[facility] County HospitalComment on above:Performed By: #### HS TROP, CBC, CMP, CK #### [facility] [address] [place] [address] USACreatinine [Mass/Vol]0.54 mg/dLLow0.60-1.20M[facility] County HospitalComment on above:Performed By: #### HS TROP, CBC, CMP, CK #### [place] [address] USACreatinine Clr Calc Miqbeoeg647.65NormalMorrow County HospitalComment on above:Result Comment: PERFORMED BY: [place] [address] PATHOLOGIST LACQUER DIPPING MACHINE OPERATOR ELDER HUFF M.D.Performed By: #### HS TROP, CBC, CMP, CK #### [place] [id number] USAGFR/1.73 sq M.predicted MDRD (S/P/Bld) [Vol rate/Area] mL/min/{1.73_m2}NormalMorrow County HospitalComment on above: Performed By: #### HS TROP, CBC, CMP, CK #### [facility] [address] [place] [address] USAGlobulin (S) [Mass/Vol]2.9 g/dLNormalMorrow County HospitalComment on above:Performed By: #### HS TROP, CBC, CMP, CK #### [facility] [address] [place] [address] USAGlucose [Mass/Vol]160 mg/vQEvku88-897EyzmuqqdhMorrow County HospitalComment on above:Result Comment: Random Glucose Reference Range is dependent on time and content of last meal. Glucose of more than 200 mg/dL in a nonstressed, ambulatory subject supports the diagnosis of Diabetes Mellitus. ADA recommended reference rangePerformed By: #### HS TROP, CBC, CMP, CK #### [facility] [address] [place] [address] USAPotassium [Moles/Vol]3.2 mmol/LLow3.5-5.1FMarymount HospitalComment on above:Performed By: #### HS TROP, CBC, CMP, CK #### [facility] [address] [place] [address] USAProtein [Mass/Vol]7.7 g/dLNormal6.4-8.9M[facility] County HospitalComment on above:Performed By: #### HS TROP, CBC, CMP, CK #### [facility] [address] [place] [address] USASodium [Moles/Vol]140 mmol/UDagemc154-465OwmlccexgMorrow County HospitalComment on above:Performed By: #### HS TROP, CBC, CMP, CK #### [facility] [address] [place] [address] USAUrea nitrogen [Mass/Vol]19 mg/dLNormal7-25M[facility] County HospitalComment on above:Performed By: #### HS TROP, CBC, CMP, CK #### [facility] [address] [place] [id number] USACreatine Kinaseon 85-33-1190FW [Catalytic activity/Vol]112 U/ZAapyyx23-574DjlijryudMorrow County HospitalComment on above:Performed By: #### HS TROP, CBC, CMP, CK #### [facility] [address] [place] [address] USACreatine kinase [Enzymatic activity/volume] in Serum or PlasmaOrdered By: Caron Ribeiro on 01-45-9792UW [Catalytic activity/Vol]112 U/L [facility] County HospitalCreatinine [Mass/volume] in Serum or PlasmaOrdered By: Caron Ribeiro on 29-19-6889Bfaxidfynf [Mass/Vol]0.54 mg/dL 0.60-1.20M[facility] County HospitalDrug Screen,Urineon 11-18-2022 Amphetamine Screen,UrineNegativeNormalNegativeMorrow County Hospital Comment on above:Performed By: #### URDS, CG, UA #### [place] [address] USABarbiturate Screen,UrineNegativeNormalNegativeMorrow County HospitalComment on above:Performed By: #### URDS, CG, UA #### [place] [address] USABenzodiazepines Screen,UrineNegativeNormalNegative [facility] County HospitalComment on above:Performed By: #### URJORGE A, CG, UA #### [place] [address] USACannabinoid Screen,UrinePositiveHighNegativeMorrow County HospitalComment on above:Result Comment: These are unconfirmed results and should not be used for legal purposes. Drug Cut-Off Concentration: AMPH 1000 ng/mL NOEMI 200 ng/mL EVER 200 ng/mL COCM 300 ng/mL OP 300 ng/mL PCP 25 ng/mL THC 20 ng/mL PERFORMED BY: [place] [address] PATHOLOGIST LACQUER DIPPING MACHINE OPERATOR ELDER HUFF M.D.Performed By: #### URDS, UHCG, UA #### [facility] [address] [place] [address] USACocaine Screen,UrineNegativeNoformerly memorial hospital of wake countyNegFostoria City HospitalComment on above:Performed By: #### URDS, UHCG, UA #### [facility] [address] [place] [address] USAOpiate Screen,UrineNegativeNormwiNegFostoria City HospitalComment on above:Performed By: #### URDS, UHCG, UA #### [facility] [address] [place] [address] USAPhencyclidine Screen,UrineNegativeSt. Anthony's HospitalComment on above:Performed By: #### URDS, UHCG, UA #### [facility] [address] [place] [address] USAECG 12 lead ECGon 09-45-4892BUI 12 lead ECGKET[facility] [address] [place] [address] Electrocardiograph Report Signed Patient: Tristen Mccracken MR#: [id number] 0 : 1995 Acct:[id number] Age/Sex: 27 / F ADM Date: 11/18/22 Loc: ER Room: Type: [facility] ER Attending Dr: Ordering Provider: Caron [...] ECGs available Confirmed by CARON RIBEIRO MD ([id number]) on 11/18/2022 7:42:29 AM Referred By: Electronically Signed By:CARON RIBEIRO MD Transcribed By: MUS Signed By Caron Ribeiro Jr, [place] [address] Medical CenterEosinophils Auto (Bld) [#/Vol] Ordered By: Caron Ribeiro on 01-01-1959Rlcaxpvrebz (Bld) [#/Vol]0.1 10*3/uL 0.0-0.45Morrow County HospitalEosinophils/100 WBC Auto (Bld)Ordered By: Caron Ribeiro on 38-57-6357Ouyemwboewp/100 WBC (Bld)0.7 %.Morrow County HospitalErythrocyte distribution width Auto (RBC) [Ratio]Ordered By: Caron Ribeiro on 63-74-1645Ljqcgyuhqam distribution width (RBC) [Ratio]12.9 % 11.9-15.3FMarymount HospitalEthanol [Mass/volume] in Serum or PlasmaOrdered By: Caron Ribeiro on 52-17-2553Gbkfkvq [Mass/Vol]246 mg/dL [facility] HospitalEthanol [Mass/Vol]0.246 %[facility] County HospitalEthyl Alcohol Profileon 29-65-0109Udtlfrz [Mass/Vol]246 mg/dL [facility] CenterComment on above:Performed By: #### HS TROP, CBC, CMP, CK #### [facility] [address] [place] [address] USAPercent Ethanol0.246 %[facility] Medical CenterComment on above:Result Comment: PERFORMED BY: [place] [address] PATHOLOGIST LACQUER DIPPING MACHINE OPERATOR ELDER HUFF M.D.Performed By: #### HS TROP, CBC, CMP, CK #### [facility] [address] [place] [address] USAGlobulin Calc (S) [Mass/Vol]Ordered By: Caron Ribeiro on 52-26-0829Uysswbyf (S) [Mass/Vol]2.9 g/dLMorrow County Hospital Glucose [Mass/volume] in Serum or PlasmaOrdered By: Caron Ribeiro on 11-18-2022 Glucose [Mass/Vol]160 mg/rT71-144TgyotredlMorrow County HospitalComment on above:ADA recommended reference rangeRandom Glucose Reference Range is dependent on time and content of last meal. Glucose of more than 200 mg/dL in a nonstressed, ambulatory subject supports the diagnosisof Diabetes Mellitus.HCG ( test) IA.rapid Ql (U)Ordered By: Caron Ribeiro on 47-19-2862PCV ( test) Ql (U)NegativeMorrow County HospitalHCG,Urineon 99-62-0315Riql HCG ( test) Ql (U)NegativeNormalMorrow County HospitalComment on above:Order Comment: Name Collection Type:: Patricia CatheterResult Comment: PERFORMED BY: [facility] [address] [place] [address] PATHOLOGIST LACQUER DIPPING MACHINE OPERATOR ELDER HUFF M.D.Performed By: #### URDS, CG, UA #### [place] [address] USAHematocrit Auto (Bld) [Volume fraction]Ordered By: Caron Ribeiro on 76-83-2746Mpictmorrs (Bld) [Volume fraction]38.0 %34.0-46.4FMarymount HospitalHemoglobin [Mass/volume] in BloodOrdered By: Caron Ribeiro on 65-12-9482Ipzcshxenv (Bld) [Mass/Vol]12.9 g/dL11.8-15.4FMarymount HospitalKetones Auto test strip (U) [Mass/Vol]Ordered By: Caron Ribeiro on 55-70-8099Intzoup (U) [Mass/Vol]NegativeNegativeMorrow County HospitalLaboratory - Chemistry and Chemistry - challengeOrdered By: Caron Ribeiro on 55-46-4942RKJ/1.73 sq M.predicted MDRD (S/P/Bld) [Vol rate/Area] mL/min/{1.73_m2}[facility] HospitalLaboratory - CoagulationOrdered By: Caron Ribeiro on 76-09-5859AJ Coag (PPP) [Time]10.9 s9.0-12.9M[facility] County HospitalLeukocytes [#/volume] corrected for nucleated erythrocytes in Blood by Automated counOrdered By: Caron Ribeiro on 11-18-2022 WBC corrected for nucl RBC Auto (Bld) [#/Vol]8.9 10*3/uL3.8-11.6FMarymount HospitalLymphocytes Auto (Bld) [#/Vol]Ordered By: Caron Ribeiro on 23-40-5763Ipjzfqvbajm (Bld) [#/Vol]2.7 10*3/uL1.00-4.8M[facility] County HospitalLymphocytes/100 WBC Auto (Bld)Ordered By: Caron Ribeiro on 34-28-6602Zoycuzuisfs/100 WBC (Bld)29.8 %.[facility] Auto (RBC) [Entitic mass]Ordered By: Caron Ribeiro on 73-85-9371IDR (RBC) [Entitic mass]30.8 pg24.7-34.3FMarymount HospitalMCHC Auto (RBC) [Mass/Vol]Ordered By: Caron Ribeiro on 43-51-0177JFGS (RBC) [Mass/Vol]34.0 g/dL 32.0-35.0M[facility] County HospitalMCV Auto (RBC) [Entitic vol]Ordered By: Caron Ribeiro on 09-44-7900XVZ (RBC) [Entitic vol]90.6 cU68-120BfppulzdfMorrow County HospitalMonocyte distribution width [Entitic volume] in Blood by AutomatedOrdered By: Caron Ribeiro on 98-57-5423Qtnxmodv distribution width Auto (Bld) [Entitic vol]17.76 %0.00-20.00M[facility] County HospitalMonocytes Auto (Bld) [#/Vol]Ordered By: Caron Ribeiro on 55-13-3494Pocwuauzy (Bld) [#/Vol] 0.5 10*3/uL0.0-0.8M[facility] County HospitalMonocytes/100 WBC Auto (Bld) Ordered By: Caron Ribeiro on 12-74-8008Tmpokyodp/100 WBC (Bld)5.1 %.Morrow County HospitalNeutrophils Auto (Bld) [#/Vol]Ordered By: Caron Ribeiro on 93-52-2225Ueaagpgtlvg (Bld) [#/Vol]5.7 10*3/uL1.8-7.7FMarymount HospitalNeutrophils/100 WBC Auto (Bld)Ordered By: Caron Ribeiro on 20-24-0418Opqhdgexabo/100 WBC (Bld)63.9 %.[facility] Nitrite Test strip Ql (U)Ordered By: Caron Ribeiro on 79-65-7509Jjksxzd Ql (U) NegativeNegFostoria City HospitalNo Panel InformationOrdered By: Caron Ribeiro on 07-62-7961Etdxqzpx Creatinine Clearance (Bmun508.65M[facility] County HospitalNucleated erythrocytes [Presence] in Blood by Automated countOrdered By: Caron Ribeiro on 16-23-0268Dlssttprg RBC Auto Ql (Bld)0.1 /100{WBC}0-0.5FMarymount HospitalOpiates [Presence] in Urine by Screen methodOrdered By: Caron Ribeiro on 46-60-1577Bpfvfdu Screen Ql (U) NegativeNegFostoria City HospitalPartial Thromboplastin Timeon 80-85-8809pSPK Coag (Bld) [Time]25.0 sLow25.1-36.5FMarymount HospitalComment on above:Result Comment: PERFORMED BY: [place] [address] PATHOLOGIST LACQUER DIPPING MACHINE OPERATOR ELDER HUFF M.D.Performed By: #### HS TROP, CBC, CMP, CK #### [place] [address] USAPhencyclidine Screen Ql (U)Ordered By: Caron Ribeiro on 25-61-4012Dofqxoaphwtsh Ql (U)NegativeNegFostoria City Hospital Platelet mean volume Auto (Bld) [Entitic vol]Ordered By: Caron Ribeiro on 79-03-9039Hphkfqqd mean volume (Bld) [Entitic vol]6.9 fL6.3-10.7FMarymount HospitalPlatelet poor plasma international normalized ratio (INR) by coagulation assay (relatOrdered By: Caron Ribeiro on 78-64-6742FXB Coag (PPP) [Relative time]0.9 {INR}[facility] County HospitalComment on above:INR Therapeutic Range A) Pre- [...] Auto (Bld) [#/Vol]Ordered By: Caron Ribeiro on 85-51-5800Mtzroljzl (Bld) [#/Vol] 277 10*3/bD934-568OwxlwgaxjMorrow County HospitalPotassium [Moles/volume] in Serum or PlasmaOrdered By: Caron Ribeiro on 01-30-3943Wxtvjjbxm [Moles/Vol]3.2 mmol/L3.5-5.1FMarymount HospitalProtein Auto test strip (U) [Mass/Vol]Ordered By: Caron Ribeiro on 96-74-2258Dxsjjna (U) [Mass/Vol]Negative NegativeMorrow County HospitalProtein [Mass/volume] in Serum or PlasmaOrdered By: Caron Ribeiro on 18-00-0702Cnmtdqn [Mass/Vol]7.7 g/dL6.4-8.9 [facility] HospitalProthrombin Time INRon 26-96-2038CHB Coag (PPP) [Relative time]0.9 {INR}NormalMorrow County HospitalComment on above:Result Comment: INR Therapeutic Range [...] #### HS TROP, CBC, CMP, CK #### [facility] [address] [place] [address] USAPT Coag (PPP) [Time]10.9 sNormal9.0-12.9M[facility] County HospitalComment on above:Performed By: #### HS TROP, CBC, CMP, CK #### [facility] [address] [place] [address] USARBC Auto (Bld) [#/Vol]Ordered By: Caron Ribeiro on 10-34-5996JWZ (Bld) [#/Vol]4.20 10*6/uL3.60-5.00[facility] Medical Centererum or plasma albumin/globulin mass ratioOrdered By: Caron Ribeiro on 69-28-7780Snrrhoo/Globulin [Mass ratio]1.7 {ratio}[facility] Medical Centererum or plasma anion gap determinationOrdered By: Caron Ribeiro on 23-68-3838Dqrww gap [Moles/Vol]18.9 mmol/L6.0-15.0[facility] Medical Centerodium [Moles/volume] in Serum or PlasmaOrdered By: Caron Ribeiro on 81-06-8513Simrmc [Moles/Vol]140 mmol/B318-871QfgslsngoMorrow County Hospital Specific gravity Auto test strip (U) [Rel density]Ordered By: Caron Ribeiro on 99-14-7594Ebaqotlp gravity (U) [Rel density]1.0061.001-1.030M[facility] County HospitalTroponin I High Sensitivityon 60-94-9964Glischsk I High Sensitivity2.6 pg/mLNormal0.0-15.0M[facility] County HospitalComment on above:Result Comment: PERFORMED BY: [place] [address] PATHOLOGIST LACQUER DIPPING MACHINE OPERATOR ELDER HUFF M.D.Performed By: #### HS TROP, CBC, CMP, CK #### [facility] [address] [place] [address] USATroponin I.cardiac [Mass/volume] in Serum or Plasma by Detection limit <= 0.01 ng/Ordered By: Caron Ribeiro on 43-04-0219Nnuvdmrc I.cardiac DL <= 0.01 ng/mL [Mass/Vol]2.6 pg/mL0.0-15.0M[facility] County HospitalUrea nitrogen [Mass/volume] in Serum or PlasmaOrdered By: Caron Ribeiro on 95-99-8988Kzfg nitrogen [Mass/Vol]19 mg/dL7-25Morrow County HospitalUrinalysison 80-32-9987Csfirfhlri (U)ClearNormalClearMorrow County HospitalComment on above:Order Comment: Name Collection Type:: Patricia CatheterPerformed By: #### URDS, UHCG, UA #### [facility] [address] [place] [address] USABilirubin,UrineNegativeNormalNegativeMorrow County HospitalComment on above:Order Comment: Name Collection Type:: Patricia CatheterPerformed By: #### URDS, UHCG, UA #### [facility] [address] [place] [id number] USAColor (U)YellowNormalYellowMorrow County HospitalComment on above:Order Comment: Name Collection Type:: Patricia Catheter Performed By: #### URDS, UHCG, UA #### [facility] [address] [place], [place] [id number] USAGlucose Ql (U)NormalNormalNormAdams County HospitalComment on above:Order Comment: Name Collection Type:: Patricia Catheter Performed By: #### URDS, UHCG, UA #### [facility] [address] [place] [address] USAKetones Ql (U)NegativeNormalNegFostoria City HospitalComment on above:Order Comment: Name Collection Type:: Patricia CatheterPerformed By: #### URDS, UHCG, UA #### [facility] [address] [place] [address] USALeukocyte esterase Test strip Ql (U)NegativeNormalGrand Lake Joint Township District Memorial HospitalComment on above:Order Comment: Name Collection Type:: Patricia CatheterPerformed By: #### URDS, UHCG, UA #### [facility] [address] [place], [place] [address] USANitrite,UrineNegativeNormalNegativeMorrow County HospitalComment on above:Order Comment: Name Collection Type:: Patricia CatheterPerformed By: #### URDS, UHCG, UA #### [facility] [address] [place], [place] [address] USAOccult Blood,UrineNegativeNormalNegFostoria City HospitalComment on above:Order Comment: Name Collection Type:: Patricia CatheterPerformed By: #### URDS, UHCG, UA #### [facility] [address] [place] [address] USApH (U)5.5 [pH]Normal5.0-9.0M[facility] County HospitalComment on above:Order Comment: Name Collection Type:: Patricia Catheter Performed By: #### URDS, UHCG, UA #### [facility] [address] [place] [address] USAProtein,UrineNegativeNormalNegativeMorrow County HospitalComment on above:Order Comment: Name Collection Type:: Patricia CatheterPerformed By: #### URDS, UHCG, UA #### [facility] [address] [place] [address] USASpecificy Rowe,Urine1.433Ovjsrp2.001-1.030M[facility] County HospitalComment on above:Order Comment: Name Collection Type:: Patricia CatheterPerformed By: #### URDS, UHCG, UA #### [facility] [address] [place] [id number] USAUrobilinogen,UrineNormalNormalNormalMorrow County HospitalComment on above:Order Comment: Name Collection Type:: Patricia CatheterPerformed By: #### URDS, UHCG, UA #### [facility] [address] [place] [address] USAUrine clarity by refractometry automatedOrdered By: Caron Ribeiro on 04-21-1922Mokwjwz Refractometry automated (U)ClearCleMemorial HospitalUrine glucose measurement by automated test strip (mass/volume)Ordered By: Caron Ribeiro on 57-88-1041Dpgvabu Auto test strip (U) [Mass/Vol]Normal mg/dLNoMercy Health St. Elizabeth Boardman HospitalUrine hemoglobin detection by automated test stripOrdered By: Caron Ribeiro on 11-18-2022 Hemoglobin Auto test strip Ql (U)NegativeNegativeMorrow County HospitalUrine leukocyte esterase detection by automated test stripOrdered By: Caron Ribeiro on 62-56-9149Tsitpwxpm esterase Auto test strip Ql (U)Negative NegativeMorrow County HospitalUrobilinogen Auto test strip (U) [Mass/Vol]Ordered By: Caron Ribeiro on 03-42-9672Uatdqaoahupb (U) [Mass/Vol] Normal mg/dLNoMercy Health St. Elizabeth Boardman HospitalWBC Auto (Bld) [#/Vol]Ordered By: Caron Ribeiro on 06-20-0096HCJ (Bld) [#/Vol]8.9 10*3/uL3.8-11.6FMarymount HospitalXR chest 1V portableon 53-33-8228ED chest 1V portable [facility] [place] [address] XRay Report Signed Patient: Tristen Mccracken MR#: [id number] 0 : 1995 Acct:[id number] Age/Sex: 27 / F ADM Date: 11/18/22 Loc: ER Room: Type: [facility] ER Attending Dr: Copies to: Caron [...] Mandeep Chowdhury M.D.11/18/2022 11:25 AM Dictation Location: [place] [address] Transcribed By: [facility] 11/18/22 1125 Dictated By: Mandeep Chowdhury II, MD 11/18/22 1124 Signed By: 11/18/[address] Elizabeth Boardman HospitalpH Auto test strip (U) Ordered By: Caron Ribeiro on 39-24-1613mU (U)5.5 [pH]5.0-9.0M[facility] County HospitalXR CSPINE 2_3 VIEWSon 82-49-1935RZ CSPINE 2_3 VIEWSEXAMINATION: XR CSPINE 2_3 VIEWS [...] Electronically authenticated by: JESENIA MOBLEY Date: 2020-08-03 15:03[facility] Vital Signs Date TimeVital SignValuePerforming QdycahyvbPfrernpo25-29-1804 11:43-0500Body mass index (BMI) [Ratio]32.25 kg/k4Yvxnk Oneida DO Work Phone: [phone] [place], [place] [address]Usrzaorygk72-94-9584 11:43-0500Body lzymjw51.91 kgCorey Oneida DO Work Phone: [phone] [place], [place] [address]Yxxfcfhnza97-49-3329 11:43-0500Diastolic blood xukwzrnl41 mm[Hg]Gilmer Oneida DO Work Phone: [phone] [place], [place] [address]Qnoqfostbq01-44-4006 11:43-0500Systolic blood svqfohwb370 mm[Hg]Gilmer Oneida DO Work Phone: [phone] [place], [place] [address]Qzohbcfpuv73-06-9336 13:58-0400Body mass index (BMI) [Ratio]31.45 kg/h6Uftgh Oneida DO Work Phone: [phone] [place], [place] [address]Spnnpuilfc43-12-7749 13:58-0400Body giqfqr46.73 kgCorey Oneida DO Work Phone: [phone] [place], [place] [address]Smdlusvnpv01-15-3325 13:58-0400Diastolic blood mm[Hg]Gilmer Oneida DO Work Phone: [phone] [place], [place] [address]Isemfqreig53-42-6228 13:58-0400Systolic blood vzmpywyz309 mm[Hg]Gilmer Oneida DO Work Phone: [phone] [place], [place] 1756010-06-2025 09:05-0400Body mass index (BMI) [Ratio]32.18 kg/q5IdgxhpeaMervat Hall SUPERINTENDENT [employer] Work Phone: [phone] [place], [place] [address]Hzbnndqpcc17-50-1835 09:05-0400Body .73 kgMervat Hall NP Work Phone: [facility] HospitalTqqzqlktbu19-45-6003 09:05-0400Diastolic blood zpeohgos97 mm[Hg]Mervat Rafael SUPERINTENDENT [employer] Work Phone: [facility] HospitalFnachxubpv66-36-5739 09:05-0400Systolic blood mm[Hg]Mervat Rafael SUPERINTENDENT [employer] Work Phone: [facility] HospitalRbtcmywbxj40-19-4343 13:48-0400Body mass index (BMI) [Ratio]31.09 kg/m2Amy Amrit PA Work Phone: [facility] HospitalWrgvjgjafw87-05-2341 13:48-0400Body izrxwx14.73 kgAmy Amrit PA Work Phone: [facility] HospitalRtygpvxbdj17-78-4063 13:48-0400Diastolic blood wdefrauy16 mm[Hg]Josseline Andersen PA Work Phone: [facility] HospitalAyjsjxlstf44-90-7805 13:48-0400Systolic blood mjjenhai145 mm[Hg]Josseline Andersen PA Work Phone: [facility] HospitalYtqawyuhts99-64-7388 16:17-0400Body mass index (BMI) [Ratio]29.39 kg/m2Amy Amrit PA Work Phone: [facility] HospitalNqiltielwe84-90-7390 16:17-0400Body zjfpui18.11 kgAmy Amrit PA Work Phone: [facility] HospitalVwbttabwkp77-03-0154 16:17-0400Diastolic blood gnxjeubk60 mm[Hg]Josseline Andersen PA Work Phone: [facility] HospitalJimvavsnrg88-26-8803 16:17-0400Systolic blood lhexrcfi832 mm[Hg]Josseline Andersen PA Work Phone: [facility] HospitalScknomeivu06-81-4390 09:47-0400Body mass index (BMI) [Ratio]28.76 kg/g1Mfhes Oneida DO Work Phone: [facility] HospitalCoowbbiemm74-07-0408 09:47-0400Body qcupri21.38 kgCorey Oneida DO Work Phone: [facility] HospitalHpfzjiqfup33-56-8376 09:47-0400Diastolic blood qkzgrjiw06 mm[Hg]Gilmer Oneida DO Work Phone: [phone] [place], [place] [address]Fselxpddki67-95-2844 09:47-0400Systolic blood rwearjhl088 mm[Hg]Gilmer Oneida DO Work Phone: [phone] [place], [place] [address]Wyrhodsxat46-98-3531 09:53-0400Body glhosb658.1 Parth Amrit PA Work Phone: [phone] [place] [address]Onsppeptpw33-22-1914 09:47-0400Body mass index (BMI) [Ratio]28.12 kg/m2Josseline Amrit PA Work Phone: 1([phone] [place], [place] [address]Rmukjapoyj56-41-7595 09:47-0400Body rbbvea66.66 kgJosseline Amrit PA Work Phone: 1([phone])058-[address] [place], [place] [address]Kdrmsslivo34-18-9772 09:47-0400Diastolic blood asqzkoom04 mm[Hg]Josseline Amrit PA Work Phone: 1([phone])995-[address] [place], [place] [address]Ncyglzyqro27-49-0255 09:47-0400Systolic blood bsufzzvc204 mm[Hg]Josseline Amrit PA Work Phone: [phone] [place], [place] [address]Adsctdhuqp58-39-1758 11:45-0400Body nyzaeg11.41 kgCorey Oneida DO Work Phone: [phone] [place], [place] [address]Yokraxkqee12-54-5983 11:45-0400Diastolic blood kidmzpvu37 mm[Hg]Gilmer Oneida DO Work Phone: 1([phone] [place], [place] [address]Fyipfrdzza51-43-5196 11:45-0400Systolic blood gwecppne687 mm[Hg]Gilmer Oneida DO Work Phone: 1([phone] [place], [place] [address]Kfhxpibeto41-92-2347 10:37-0400Body kpmgpi30.47 kgNoWashington [facility]01-[facility]-2025 11:50-0500Body .85 kgCorey Oneida DO Work Phone: 1([phone] [place], [place] [address]Gqaygteova85-71-0184 11:50-0500Diastolic blood hdafhgoq45 mm[Hg]Gilmer Oneida DO Work Phone: noMet[facility] CenterKwmmuckstp36-12-7191 11:50-0500Systolic blood psjcqubu492 mm[Hg]Gilmer Segoviao DO Work Phone: [facility] HospitalCvsgsxktym62-62-8485 06:23-0400Diastolic blood xdoxykot35 mm[Hg]MD Caron Ribeiro Jr Work Phone: [facility]03-18-2023 06:23-0400 Heart rate90 /minMD Caron Ribeiro Jr Work Phone: 1([phone] [place], [place] 7247203-18-2023 06:23-0400 Respiratory rate18 /minMD Caron Ribeiro Jr Work Phone: 1([phone] [place], [place] 7247203-18-2023 06:23-0400 SaO2% (BldA) [Mass fraction]99 %MD Caron Ribeiro Jr Work Phone: 1(494)648-[address] [place], [place] 7247203-18-2023 06:23-0400 Systolic blood mm[Hg]MD Caron Ribeiro Jr Work Phone: [facility]03-18-2023 04:33-0400 Body leibrvfklcp00.8 [degF]MD Caron Ribeiro Jr Work Phone: [facility]03-18-2023 03:19-0400 Inhaled oxygen flow rate2 L/minMD Caron Ribeiro Jr Work Phone: [facility]03-18-2023 00:42-0400 Body nuwmwh160.72 cmMD Caron Ribeiro Jr Work Phone: [facility]03-18-2023 00:42-0400 Body vpzqlu91.2 kgMD Caron Ribeiro Jr Work Phone: [facility] Encounters Encounter DateEncounter TypeCare ProviderFacilityStart: 07-15-2025 End: 78-95-5888Gbnked Vishal Hall NP Work Phone: [facility] Sohail OBGYNStart: 07-15-2025 End: 58-80-2156Gcmzqq flowsOmkar Hall [employer] Work Phone: [facility] OBGYNStart: 07-15-2025 End: 68-84-4813evpbeoecjlVSYFRGLN EBERLYNot AvailableStart: 07-08-2025 End: 64-85-2488Lqblio flowsheetCorey Oneida DO Work Phone: [facility] OBGYNStart: 07-08-2025 End: 09-48-5182Cuqnvq flowsheetCorey Oneida DO Work Phone: [facility] OBGYNStart: 07-08-2025 End: 96-15-6667vknlnqjozxYIFVE FAZIONot AvailableStart: 07-08-2025 End: 87-16-9166Rlszyt outpatient visit 15 minutesCorey Oneida DO Work Phone: [facility] Sohail OBGYNComment on above:Third trimester ([facility]); 35 weeks gestation of ([facility])Start: 07-06-2025 End: 23-01-6920Cuworjbal Result EncounterCorey Oneida DO Work Phone: [facility] External Department UnsolicitedStart: 07-06-2025 End: 77-25-3276Ffguksapm Result EncounterCorey Oneida DO Work Phone: [facility] External Department UnsolicitedStart: 06-22-2025 End: 38-92-6016Vbzipv outpatient visit 15 minutesCorey Oneida DO Work Phone: [facility] [place] OBGYNComment on above:Third trimester ([facility]); 33 weeks gestation of ([facility])Start: 06-22-2025 End: 02-16-8549tcwgxugpplCGNHF FAZIONot AvailableStart: 06-08-2025 End: 58-38-4224Fmtudv flowsheetMervat Hall [employer] Work Phone: [facility] [place] OBGYNStart: 06-08-2025 End: 38-64-9936Xjqjxq flowsOmkar Hall [employer] Work Phone: [facility] [place] OBGYNStart: 06-08-2025 End: 49-54-4648nxznrsftlyDMDMWCON EBERLYNot AvailableStart: 06-08-2025 End: 59-66-6456Vwqbkh outpatient visit 15 minutesMervat Hall [employer] Work Phone: [facility] Sohail OBGYNComment on above: size inconsistent with dates ([facility]) (Primary Dx); 31 weeks gestation of ([facility]); Third trimester ([facility])Start: 05-19-2025 End: 87-17-8710Rdiqtc Liseth PATEL Work Phone: [facility] OBGYNStart: 05-19-2025 End: 83-03-3857Qikoed flowsheetJosseline PATEL Work Phone: [facility] [place] OBGYNStart: 05-19-2025 End: 50-67-1544Owngxs outpatient visit 15 minutesAmy Amrit PATEL Work Phone: [facility] S[facility]ail OBGYNComment on above:Third trimester ([facility]); 28 weeks gestation of ([facility])Start: 05-19-2025 End: 85-62-4121zuyxwetiarDMQ RAMEYNot AvailableStart: 04-27-2025 End: 20-91-3971Xvopthsse Result EncounterJosseline PATEL Work Phone: [facility] External Department UnsolicitedStart: 04-27-2025 End: 04-34-5696Snflzqjjo Result EncounterJosseline PATEL Work Phone: [facility] External Department UnsolicitedStart: 04-22-2025 End: 94-12-7881xjnqyddizyHMC RAMEYNot AvailableStart: 04-22-2025 End: 48-93-5634Bcezxg outpatient visit 15 minutesJosseline PATEL Work Phone: [facility] Sohail OBGYNComment on above:Second trimester ([facility]); 24 weeks gestation of ([facility]); Diabetes mellitus screening; Restless legStart: 04-22-2025 End: 83-06-3493Wexeuz flowsDarshana PATEL Work Phone: [facility] [place] OBGYNStart: 04-22-2025 End: 53-78-7560Ktppnn flowsDarshana PATEL Work Phone: [facility] [place] OBGYNStart: 03-23-2025 End: 76-77-6327Zfsdvs outpatient visit 15 minutesCorey Oneida DO Work Phone: [facility] BCP OBComment on above:20 weeks gestation of ([facility]); Second trimester ([facility])Start: 03-23-2025 End: 43-36-0949hntllrwztvPPCZV FAZIONot AvailableStart: 02-18-2025 End: 05-66-2692Tzthag flowsDarshana PATEL Work Phone: NOEE BCP OBStart: 02-18-2025 End: 29-96-7051Istchp flowsDarshana PATEL Work Phone: [facility] BCP OBStart: 02-18-2025 End: 54-30-0472Psejbjrdo Result EncounterJosseline PATEL Work Phone: [facility] External Department UnsolicitedStart: 02-18-2025 End: 84-31-1785Zfagkdyy Result EncounterJosseline PATEL Work Phone: [facility] External Department UnsolicitedStart: 02-18-2025 End: 18-13-1350Wrapww outpatient visit 15 minutesJosseline PATEL Work Phone: n[facility] BCP OBComment on above:Well woman exam with routine gynecological exam; Exposure to STD; Need for maternal serum alpha-protein (MSAFP) screening ([facility]); Second trimester ([facility]); 15 weeks gestation of ([facility]); Screening, , for anatomic survey ([facility])Start: 02-18-2025 End: 29-54-5622Otybgwc encounter procedureAmy Amrit PATEL Work Phone: [facility] HealthcareStart: 02-18-2025 End: 53-25-1389uoebbuciumXVZ Kateryna AvailableStart: 01-28-2025 End: 60-74-4822Tfrcnt flowsheetCorey Oneida DO Work Phone: [facility] BCP OBStart: 01-28-2025 End: 95-35-3225Pcdhcu flowsheetCorey Oneida DO Work Phone: [facility] BCP OBStart: 01-28-2025 End: 50-34-6531bpxofjdwseYISWY FAZIONot AvailableStart: 01-28-2025 End: 88-60-0747Gzgluw outpatient visit 15 minutesCorey Oneida DO Work Phone: [facility] BCP OBComment on above:First trimester ; 12 weeks gestation of pregnancyStart: 01-09-2025 End: 93-46-0845Xvlgdmqyg Result EncounterCorey Oneida DO Work Phone: [facility] External Department UnsolicitedStart: 01-09-2025 End: 56-78-0311Yjitghjcd Result EncounterCorey Oneida DO Work Phone: noMS External Department UnsolicitedStart: 01-09-2025 End: 64-72-4250Yjjkts outpatient visit 5 minutesNoms Bcp Ob Oneida NurseNOMS BCP OBComment on above:GA: 5m2yBnvrc: 01-09-2025 End: 56-94-4098fnrnwwdzkoCWBBG FAZIONot AvailableStart: 09-11-2024 End: 11-97-5735Arscrwr encounter procedureCorey Oneida DO Work Phone: [facility] BCP OBComment on above:Encounter for IUD removal Start: 09-11-2024 End: 58-80-7411xsquoivmpqZODBU FAZIONot AvailableStart: 11-18-2022 End: 17-09-2273Mfoonghwm department patient visitJef Hernandezcility:[facility] Centertart: 11-18-2022 End: 36-37-4447Glptgrsbd department patient visitMD Caron Ribeiro Jr Work Phone: [facility] Work Phone: Start: 08-03-2020 End: 62-07-1054Mpcjidy encounter procedureDOCTOR MISCFacility:H1 Procedures DateProcedureProcedure DetailPerforming ClinicianStart: 61-79-3295Yqdoz dip stick/tablet rgnt non-auto w/o micrscpCorey Oneida DO Work Phone: Start: 65-80-1553LVB UA (CLEAN/CATCH) CUSTOMER SUCCESS DIRECTOR/MICRO IF IND.Gilmer Oneida DO Work Phone: Start: 13-53-8598Htpym dip stick/tablet rgnt non-auto w/o micrscpCorey Oneida DO Work Phone: Start: 98-40-5718Rhvci dip stick/tablet rgnt non-auto w/o micrscpMervat Hall NP Work Phone: Start: 60-56-9310SLB CBC WITH AUTO Zuri PATEL Work Phone: Start: 43-82-1541Enmsl dip stick/tablet rgnt non-auto w/o micrscSundeep PATEL Work Phone: Start: 05-69-6112Qsemm dip stick/tablet rgnt non-auto w/o micrscpCorey Oneida DO Work Phone: Start: 93-77-3587KXTSVYQLJ VAGINITIS (HTRX)Josesline PATEL Work Phone: Start: 12-98-1505Npfwq dip stick/tablet rgnt non-auto w/o micrscSundeep PATEL Work Phone: Start: 72-96-7669STT,APTIMA HPV,AGE GDLNJosseline PATEL Work Phone: Start: 33-71-8704Sulbg dip stick/tablet rgnt non-auto w/o micrscpCorey Oneida DO Work Phone: Start: 07-58-8050NIU CBC WITH AUTO DIFFCorey Oneida DO Work Phone: Start: 01-09-2025 End: 39-63-3126Jcomb dip stick/tablet rgnt non-auto w/o micrscpCorey Oneida DO Work Phone: Start: 72-74-2163VKK REMOVALCorey Oneida DO Work Phone: Plan of Treatment DateCare ActivityDetailAuthorStart: 07-16-2025 End: 17-67-8747Uqspcjb encounter vhucjylkx54/13/2025 11:20 AM EST Routine [facility] [address] [place] [address] Mervat Hall, [employer] [address] [place] [address] [facility] [place] OBGYNStart: 07-08-2025 End: 50-36-5276Mjlklah encounter acnwnxrvp49/05/2025 11:20 AM EST Routine [facility] [address] [place] [address] Gilmer Mohamud, DO [address] [place] [address] [facility] Sohail OBGYNStart: 06-08-2025 End: 07-18-9453WH for pregnancyUS OB follow up transabdominal approach Imaging Routine size inconsistent with dates ([facility]) Expected: 06/08/2025, Expires: 10/09/2025[facility] Work Phone: comment on above:Expected: 06/08/2025, Expires: 10/09/2025Start: 06-01-2025 End: 92-96-3414Ixqpywo encounter abuippsdl05/29/2025 9:50 AM EDT Routine [facility] [place] [facility] [address] [place], [id number] Mervat Hall, CHRISTIE [address] [place] [address] NOMArron MacielSohail OBGYNStart: 05-19-2025 End: 83-76-6913Lnpwsik encounter qhqyafvqq21/16/2025 1:30 PM EDT Routine [facility] [address] [place], [id number] Josseline Andersen PA [address] [place] [address] ArrivedNO Sohail OBGYNComment on above:ArrivedStart: 05-13-2025 End: 05-87-1393Ocbdrnz encounter coppenmzr25/10/2025 3:10 PM EDT Routine [facility] [address] [place], [id number] Gilmer Mohamud DO [address] [place] [address] TIMArron Sohail OBGYNStart: 04-22-2025 End: 14-37-5891JOT panel - Blood by Automated countCBC Lab Routine Diabetes mellitus screening Expected: 04/22/2025 (Approximate), Expires: 04/22/2026[facility] Work Phone: comment on above:Expected: 04/22/2025 (Approximate), Expires: 04/22/2026Start: 04-22-2025 End: 62-56-1340Ejqivrnuksx of glucose 1 hour after glucose challenge for glucose tolerance testGlucose tolerance, 1 hour Lab Routine Diabetes mellitus screening Expected: 04/22/2025 (Approximate), Expires: 04/22/2026[facility] HealthcareComment on above:Expected: 04/22/2025 (Approximate), Expires: 04/22/2026Start: 03-23-2025 End: 37-84-7903Hkqwuuy encounter sovfmliso33/21/2025 9:40 AM EDT Routine [facility] [address] [place] [address] Gilmer Mohamud, DO [address] [place] [address] [facility] BCP OBStart: 03-23-2025 End: 20-41-8440Sbrfkszgzuht / ancillary services ikkgxtfzdx36/21/2025 8:30 AM EDT Ancillary Procedure [facility] [address] [place] [address] [phone] BCP OBStart: 02-18-2025 End: 78-67-4542Hvguk fetoprotein, maternalAlpha fetoprotein, maternal Lab Routine Need for maternal serum alpha-protein (MSAFP) screening ([facility]) Expected: 02/18/2025 (Approximate), Expires: 03/20/2025[facility] HealthcareComment on above:Expected: 02/18/2025 (Approximate), Expires: 03/20/2025Start: 02-18-2025 End: 20-32-3476LN for pregnancyUS OB 14+ weeks anatomy scan Imaging Routine Screening, , for anatomic survey ([facility]) Expected: 02/18/2025 (Approximate), Expires: 05/21/2025[facility] HealthcareComment on above:Expected: 02/18/2025 (Approximate), Expires: 05/21/2025Start: 02-18-2025 End: 66-49-9284Nxbfrif encounter procedureNOMS BCP OBComment on above:Arrived Start: 02-03-2025 End: 61-70-9269Kanyvxa encounter rllnxlbaj73/03/2025 10:00 AM EDT Office Visit [facility] [address] [place] [phone] Gilmer Mohamud, DO [address] [place] [address] [facility] BCP OBStart: 01-28-2025 End: 51-32-5734Ettquwj encounter uyjmdxomv58/28/2025 11:20 AM EDT Routine [facility] [address] [place] [address] Gilmer Mohamud, DO [address] [place] [address] [facility] BCP OBStart: 01-09-2025 End: 61-90-5947AFN/RhABO/Rh Lab Routine Missed menses , unspecified gestational age Expected: 01/09/2025 (Approximate), Expires: 01/09/2026[facility] HealthcareComment on above:Expected: 01/09/2025 (Approximate), Expires: 01/09/2026Start: 01-09-2025 End: 50-66-6292Marvb type and Indirect antibody screen panel - BloodType and screen Lab Routine Missed menses , unspecified gestational age Expected: 01/09/2025 (Approximate), Expires: 01/09/2026[facility] HealthcareComment on above:Expected: 01/09/2025 (Approximate), Expires: 01/09/2026Start: 01-09-2025 End: 19-14-9444Zrkxj of abuse panel - Urine by Screen methodRapid drug screen, urine Lab Routine , unspecified gestational age Encounter for supervision of normal first in first trimester Expected: 01/09/2025 (Approximate), Expires: 01/09/2026[facility] HealthcareComment on above:Expected: 01/09/2025 (Approximate), Expires: 01/09/2026Start: 01-08-2025 End: 45-06-2149RL Pelvis transvaginalUS OB transvaginal Imaging Routine Missed menses Expected: 01/08/2025, Expires: 04/10/2025[facility] Work Phone: comment on above:Expected: 01/08/2025, Expires: 04/10/2025Start: 82-99-4815Uczxb chest X-rayXR chest 1V [facility] Hospitaltart: 82-44-7335AX Chest Single viewMercy Health Springfield Regional Medical Centertart: 84-29-3053FV cervical spine without contrastCT cervical spine wo [facility] Hospitaltart: 14-49-4364IF Cervical spine WO [facility] Hospitaltart: 86-07-2100VC of head without contrastCT head/brain [facility] Hospitaltart: 16-85-6662HQ Unspecified body region WO [facility] HospitalBacteria identified in Urine by CultureUrine culture Microbiology Routine Missed menses Ordered: 01/09/2025[facility] HealthcareComment on above:Ordered: 01/09/2025BC W Auto Differential panel - BloodCBC and differential Lab Routine Missed menses , unspecified gestational age Ordered: 01/09/2025[facility] HealthcareComment on above:Ordered: 01/09/2025HLAMYDIA TRACHOMATIS (GENITO/STI)CHLAMYDIA TRACHOMATIS (GENITO/STI) Lab Routine Exposure to STD Ordered: 02/18/2025[facility] HealthcareComment on above:Ordered: 02/18/2025ytology Cervical or vaginal smear or scraping studyPap Smear Pathology and Cytology Routine Well woman exam with routine gynecological exam Ordered: 02/18/2025[facility] HealthcareComment on above: Ordered: 02/18/2025Hemoglobin A1c/Hemoglobin.total in BloodHemoglobin A1c Lab Routine Missed menses , unspecified gestational age Ordered: 01/09/2025 [facility] HealthcareComment on above:Ordered: 01/09/2025Hepatitis B virus surface Ag [Presence] in Serum or Plasma by ImmunoassayHepatitis B surface antigen Lab Routine Missed menses , unspecified gestational age Ordered: 01/09/2025 [facility] HealthcareComment on above:Ordered: 01/09/2025Hepatitis C virus Ab [Presence] in Serum or Plasma by ImmunoassayHepatitis C antibody Lab Routine Missed menses , unspecified gestational age Ordered: 01/09/2025[facility] HealthcareComment on above:Ordered: 01/09/2025HIV-1/HIV-2 antigen/antibody combination immunoassayHIV-1 and HIV-2 antibodies Lab Routine Missed menses , unspecified gestational age Ordered: 01/09/2025[facility] HealthcareComment on above:Ordered: 01/09/2025Neisseria gonorrhoeae DNA [Presence] in Unspecified specimen by GHAZALA with probe detectionNeisseria gonorrhea DNA probe, direct Lab Routine Exposure to STD Ordered: 02/18/2025[facility] HealthcareComment on above: Ordered: 02/18/2025Patient EducationAlcohol Intoxication [facility] Work Phone: Patient [facility] Work Phone: Reagin Ab [Presence] in Serum by RPRRPR Lab Routine Missed menses , unspecified gestational age Ordered: 01/09/2025[facility] HealthcareComment on above:Ordered: 01/09/2025Rubella antibody, IgGRubella antibody, IgG Lab Routine Missed menses , unspecified gestational age Ordered: 01/09/2025[facility] HealthcareComment on above:Ordered: 01/09/2025 SURESWAB(R) ADVANCED VAGINITIS PLUS, TMASURESWAB(R) ADVANCED VAGINITIS PLUS, TMA Pathology and Cytology Routine Exposure to STD Ordered: 02/18/2025[facility] Work Phone: comment on above:Ordered: 02/18/2025US Pelvis transvaginalUS OB transvaginal Imaging Routine Missed menses 01/09/2025 9:45 AM [facility] Payers DatePayer CategoryPayerPolicy [id number] [id number] [id number] ..1.692999.3.57[id number] 2..1.135435.3.57[id number] 2..1.451159.3.57[id number] 2.0.1.612489.3.57[id number] 2.16840.1.910172.3.57[id number] 2.0.1.199745.3.57[id number] 2.0.1.677672.3.57[id number] 2..1.959693.3.57[id number] 2..1.302385.3.57[id number] 2..1.719642.3.57[id number] 2..1.793587.3.57[id number] 2.0.1.370870.3.57[id number] 2..1.445703.3.57[id number] 2..1.413792.3.57[id number] 2..1.106416.3.57[id number] 2.0.1.432292.3.579.2.531 Social History DateTypeDetailFacilityStart: 51-33-7264Krxpfjh smoking status NHISUnknown if ever smokedMercy Health Springfield Regional Medical Centertart: 71-07-2983Zyv Assigned At BirthFeAdena Pike Medical Centertart: 69-01-0868Btr assigned at birthNot on [facility] HealthcareStart: 57-18-9246Ujlcbe identityNot on [facility] Work Phone: Start: 76-53-8667FozgtwyeaIYWN HealthcareStart: 38-29-0612Cidzqvq of Social functionJefferson Memorial Hospital Work Phone: Start: 89-93-6411MauBlywraBRMU Healthcare Clinical Notes 09-11-2024 to 07-08-2025 Note Date & TiwbHqhiRshjxkfu63-18-3696 History of Present illness Narrative* Esther Felipa, [...] nursing note reviewed. Exam conducted with a director online marketing present. Vitals: Estimated body mass index is 32.25 kg/m as calculated from the following: Height as of 02/18/25: 5' 5 . Weight as of this encounter: 193 lb 12.8 oz. BP: 108/70 Patient's last menstrual period was 10/17/2024. Assessment/Plan ICD-10-CM 1. Third trimester ([facility]) Z34.93 2. 35 weeks gestation of ([facility]) Z3A.35 POCT urinalysis dipstick manually resulted [...] of: Gilmer Mohamud DO documented in this encounterJefferson Memorial HospitalPxzndhorja76-18-0651 History of Present illness Narrative* Mervat Hall [...] nursing note reviewed. Exam conducted with a director online marketing present. Vitals: Estimated body mass index is 31.45 kg/m as calculated from the following: Height as of 02/18/25: 5' 5 . Weight as of this encounter: 189 lb. BP: 110/70 Patient's last menstrual period was 10/17/2024. Assessment/Plan ICD-10-CM 1. Third trimester ([facility]) Z34.93 2. 33 weeks gestation of ([facility]) Z3A.33 POCT urinalysis dipstick manually resulted [...] VAGINAL DELIVERY x2 2014&2017 documented in this encounterJefferson Memorial HospitalRicemmocvb65-37-6812 History of Present illness Narrative* Mervat Hall [...] nursing note reviewed. Exam conducted with a director online marketing present. Vitals: Estimated body mass index is 32.18 kg/m as calculated from the following: Height as of 02/18/25: 5' 5 . Weight as of this encounter: 193 lb 6.4 oz. BP: 118/78 Patient's last menstrual period was 10/17/2024. ASSESSMENT & PLAN ICD-10-CM 1. 31 weeks gestation of ([facility]) Z3A.31 POCT urinalysis dipstick manually resulted 2. Third trimester ([facility]) Z34.93 Return OB: Patient presents today [...] of: Mervat Hall NP documented in this encounterJefferson Memorial HospitalJsgndacqkr07-00-5574 History of Present illness Narrative* JORGE Patrick [...] ASSESSMENT & PLAN ICD-10-CM 1. Third trimester ([facility]) Z34.93 2. 28 weeks gestation of ([facility]) Z3A.28 Return OB: Patient presents today [...] behalf of: JORGE Patrick documented in this encounterJefferson Memorial HospitalOhbwfwotaa97-28-9301 History of Present illness Narrative* JORGE Patrick [...] ASSESSMENT & PLAN ICD-10-CM 1. Second trimester ([facility]) Z34.92 POCT urinalysis dipstick manually resulted 2. 24 weeks gestation of ([facility]) Z3A.24 POCT urinalysis dipstick manually resulted [...] behalf of: JORGE Patrick documented in this encounterJefferson Memorial HospitalHrpovkiwyj45-28-3006 History of Present illness Narrative* Mervat Hall [...] nursing note reviewed. Exam conducted with a director online marketing present. Vitals: Estimated body mass index is 28.76 kg/m as calculated from the following: Height as of 02/18/25: 5' 5 . Weight as of this encounter: 172 lb 12.8 oz. BP: 118/70 Patient's last menstrual period was 10/17/2024. ASSESSMENT & PLAN ICD-10-CM 1. 20 weeks gestation of ([facility]) Z3A.20 POCT urinalysis dipstick manually resulted 2. Second trimester ([facility]) Z34.92 POCT urinalysis dipstick manually resulted [...] of: Gilmer Mohamud DO documented in this encounterJefferson [facility] [id number] History of Present illness Narrative* JORGE Patrick [...] nursing note reviewed. Exam conducted with a director online marketing present. Vitals: Estimated body mass index is [...] Need for maternal serum alpha-protein (MSAFP) screening ([facility]) Z36.1 Alpha fetoprotein, maternal Alpha fetoprotein, maternal 4. Second trimester ([facility]) Z34.92 POCT urinalysis dipstick manually resulted 5. 15 weeks gestation of ([facility]) Z3A.15 6. Screening, , for anatomic survey ([facility]) Z36.89 US OB 14+ weeks anatomy [...] nursing note reviewed. Exam conducted with a director online marketing present. Vitals: Estimated body mass index is [...] Need for maternal serum alpha-protein (MSAFP) screening ([facility]) Z36.1 Alpha fetoprotein, maternal Alpha fetoprotein, maternal 4. Second trimester ([facility]) Z34.92 POCT urinalysis dipstick manually resulted 5. 15 weeks gestation of ([facility]) Z3A.15 6. Screening, , for anatomic survey ([facility]) Z36.89 US OB 14+ weeks anatomy scan Return OB/Annual Exam: Patient presents today for a annual exam/routine obstetrics appointment. Patient is currently [id number]. Patient states she is doing well but [...] behalf of: JORGE Patrick documented in this encounterJefferson Memorial [id number] History of Present illness Narrative* Esther Leo [...] nursing note reviewed. Exam conducted with a director online marketing present. Vitals: There is no height or [...] or undercooked meat, and stay away from [facility]. Patient has been consulted regarding any further do's and don'tsof . Patient voiced understanding and all questions and concerns were answered. Orders Placed This Encounter Procedures POCT urinalysis dipstick manually resulted Follow Up: Patient is to return in 4 weeks for routine OB appointment. Documented by Esther Leo LPN on behalf of: Gilmer Mohamud DO documented in this encounterJefferson Memorial [id number] History of Present illness Narrative* Isabel Adair, BACKEND JAVA DEVELOPER - 01/09/2025 10:00 AM EDT Reason for [...] or undercooked meat, and stay away from [facility]. Patient has also been advised to [...] by: Isabel Adair LPN documented in this encounterJefferson Memorial [id number] History of Present illness Narrative* Mitail Tavares LPN - 09/11/2024 11:30 AM ESTAssociated [...] nursing note reviewed. Exam conducted with a director online marketing present. Vitals: There is no height or [...] in this encounterNOMS HealthcareEvaluation noteNo assessment information availableWhite Hospital Work Phone: Evaluation note* Diagnosis Encounter for [...] Need for maternal serum alpha-protein (MSAFP) screening ([facility]) Second trimester ([facility]) state, incidental 15 weeks gestation of ([facility]) Screening, , for anatomic survey ([facility]) [...] if you have any further problems or concerns.[facility] Work Phone: Summary Purpose Family History No Family History Records FoundNo Family History Records FoundNo Family History Records Found Advance Directives Advance Directive Response Recorded Date/ Time Advance Directives No November 18, 023 1:04am Chief Complaint and Reason for Visit Chief Complaint AMS Additional Source Comments INFORMATION SOURCE (unrecogn ized section and content) DATE CREATED AUTHOR 08/05/2020 [facility] DATE CREATED AUTHOR AUTHOR'S ORGANIZ ATION 11/29/2022 [facility] DATE CREATED AUTHOR AUTHOR'S ORGANIZ ATION 07/17/2025 [facility] EPIC Care Teams (unrecognized sec tion and content) Team Status: Active Member Role Status Dates Jef Ramirez DO Primary Care Provider Active Team Status: Inactive Member Role Status Dates Caron Ribeiro Jr, MD Emergency Provider Active Loly Serrano Care ProviderActiveTeam MemberRelationshipSpecialtyStart DateEnd Date Jef Ramirez MD [address] [place] [facility] [place] [address] PCP - General09/11/24Team MemberRelationshipSpecialtyStart DateEnd Date Jef Ramirez, DO [address] [place] [facility] [place] [address] PCP - General09/11/24Team MemberRelationshipSpecialtyStart DateEnd Date Jef Ramirez, DO [address] [place] [facility] [place] [address] PCP - General09/11/24Team MemberRelationshipSpecialtyStart DateEnd Date Jef Ramirez, DO [address] [facility] [place] [address] PCP - General09/11/24Team MemberRelationshipSpecialtyStart DateEnd Date Jef Ramirez, DO [address] [place] [facility] [place] [address] PCP - General09/11/24Team MemberRelationshipSpecialtyStart DateEnd Date Jef Ramirez, DO [address] [facility] [place] [address] PCP - General09/11/24Team MemberRelationshipSpecialtyStart DateEnd Date Jef Ramirez, DO [address] [place] [facility] [place] [address] PCP - General09/11/24Team MemberRelationshipSpecialtyStart DateEnd Date Jef Ramirez, DO [address] [facility] [place] [address] PCP - General09/11/24Team MemberRelationshipSpecialtyStart DateEnd Date Jef Ramirez, DO [address] [facility] [place] [address] PCP - General09/11/24Team MemberRelationshipSpecialtyStart DateEnd Date Jef Ramirez, DO [address] [place] [facility] [place] [address] PCP - General09/11/24Team MemberRelationshipSpecialtyStart DateEnd Date Jef Ramirez, DO [address] [place] [facility] [place] [address] PCP - General09/11/24Team MemberRelationshipSpecialtyStart DateEnd Date Jef Ramirez, DO [address] [place] [facility] [place] [address] PCP - General09/11/24Team MemberRelationshipSpecialtyStart DateEnd Date Jef Ramirez, DO [address] [facility] [place] [address] PCP - General09/11/24 Goals (unrecognized section and [...] BE BASED ON THE PRIMARY CLINICAL RECORDS. [facility] [employer], [facility]. provides no warranty or guarantee of the accuracy or completeness of information in this document.
[2025-08-10 15:12] VITALS: BP 118/81; PULSE 81; TEMP 36.6; O2SAT 96
--- NOTE | 2025-08-10 15:12 | PC.NURSE ---
Tristen and 6 day old Rick arrive for follow up. Tristen states is doing very well after this delivery compared to 2 older children. Support making a huge difference in her recovery and learning to breastfeed this child. Denies complaints for self and her recovery. Milk in and nursing going well. Denies nipple pain, difficulty latching or insufficient supply. VSS and assessment WNL for Xi. No complaints offered. Baby Rick aroused for assessment. VSS and assessment WNL. Weight is at 3.2% down from weight and mom reports 8-10 wet diapers daily with 3-4 being large yellow stool as well. Baby latched independently by mom, Active nursing with audible swallows noted. No concerns over nursing voiced. Aware to call for questions or concerns and aware of [facility] group. Home at this time with baby.
== END 2025-08-10 15:16 | disposition home or self-care (01) ==
LOC: FBCO 08:54
PROVIDERS: PCP Family Medicine; Visit Provider Obstetrics & Gynecology
DX: Z39.2 Encounter for routine postpartum follow-up (principal)